=== PATIENT | male | born 1980 | race Two or more races ===

== ENCOUNTER 2016-10-26 08:50 | Inpatient (IN) | payer OTHER ==
[2016-10-26 09:29] VITALS: BMI 25.9
--- NOTE | 2016-10-26 09:46 | HP ---
CIWA Score - CIWA Score Nausea/Vomitin-Mild Nausea/No Vomiting Muscle Tremors: 4-Moderate,w/Arms Extend Anxiety: 4-Mod. Anxious/Guarded Agitation: 1-Slight > Activity Paroxysmal Sweats: 1-Minimal Palms Moist Orientation: 0-Oriented Tacttile Disturbances: 1-Very Mild Itch/Numbness Auditory Disturbances: 1-Very Mild Visual Disturbances: 1-Very Mild Sensitivity Headache: 1-Very Mild CIWA-Ar Total Score: 15 Admission ROS S - HPI Chief Complaint: I want help, I want to stop using Allergies/Adverse Reactions: Allergies Allergy/AdvReac Type Severity Reaction Status Date / Time Fish Containing Products Allergy Intermediate Swelling Verified 10/26/16 09:14 History of Present Illness: 36 yo gentleman here for detox from alcohol. Has been using heroin but is on suboxone - received suboxone on 10/24/16 per [facility] for fifteen days, prior to that had received suboxone in September, and September 13 day supply. Reports her relapsed with heroin and alcohol following his mother's but wants to go back on suboxone. Discussed with patient we can restart suboxone tomorrow. Denies seizures. Last detox here in 2014. Patient also HIV+. Exam Limitations: Clinical Condition - Ebola screening Have you traveled outside of the country in the last 21 days: No Have you had contact with anyone from an Ebola affected area: No Have you been sick,other than usual withdrawal symptoms: No Do you have a fever: No - Review of Systems Constitutional: Loss of Appetite, Malaise, Changes in sleep EENT: reports: Blurred Vision, Nose Congestion Respiratory: reports: No Symptoms reported Cardiac: reports: No Symptoms Reported GI: reports: Nausea, Poor Appetite, Indigestion : reports: Dysuria Musculoskeletal: reports: Back Pain, Muscle Pain Integumentary: reports: No Symptoms Reported Neuro: reports: Headache, Tremors Endocrine: reports: No Symptoms Reported Hematology: reports: No Symptoms Reported Psychiatric: reports: Judgement Intact, Mood/Affect Appropiate, Orientated x3, Anxious Other Systems: Reviewed and Negative Patient History - Patient Medical History Hx Anemia: No Hx Asthma: Yes Hx Chronic Obstructive Pulmonary Disease (COPD): No Hx Cancer: No Hx Cardiac Disorders: No Hx Congestive Heart Failure: No Hx Hypertension: No Hx Hypercholesterolemia: No Hx Pacemaker: No HX Cerebrovascular Accident: No Hx Seizures: No Hx Dementia: No Hx Diabetes: No Hx Gastrointestinal Disorders: No Hx Liver Disease: No Hx Genitourinary Disorders: No Hx Sexually Transmitted Disorders: No Hx Renal Disease (ESRD): No Hx Thyroid Disease: No Hx Human Immunodeficiency Virus (HIV): Yes (since 2006 , vl <20; cd4 = 755) Hx Hepatitis C: No Hx Depression: Yes (Bipolar) Hx Suicide Attempt: No Hx Bipolar Disorder: Yes (hospitalized a year ago Bx [place]) Hx Schizophrenia: No - Patient Surgical History Past Surgical History: No - PPD History Previous Implant?: Yes Documented Results: Negative w/o proof Implanted On Prior [facility] Admission?: Yes Date: 10/26/14 Results: 0 mm - Reproductive History Patient is a Female of Child Bearing Age (11 -55 yrs old): No - Smoking Cessation Smoking history: Current every day smoker Have you smoked in the past 12 months: Yes Aproximately how many cigarettes per day: 20 Cigars Per Day: 0 Hx Chewing Tobacco Use: No Initiated information on smoking cessation: Yes 'Breaking Loose' booklet given: 10/26/16 (give on floor) - Substance & Tx. History Hx Alcohol Use: Yes Hx Substance Use: Yes Substance Use Type: Alcohol, Cocaine, Opiates Hx Substance Use Treatment: Yes (detox, rehab, subozone) - Substances Abused Heroin Route: Injection Frequency: Daily Amount used: 15 bags Age of first use: 14 Date of Last Use: 10/26/16 Cocaine Route: Inhalation Frequency: Daily Amount used: $200-300 Age of first use: 17 Date of Last Use: 10/26/16 Alcohol Route: Oral Frequency: Daily Amount used: vodka 2 pints Age of first use: 35 Date of Last Use: 10/25/16 Family Disease History - Family Disease History Family Disease History: Other: Father (living,etoh), Mother (, overdose) , Brother (two - living - depression), Sister (three) Admission Physical Exam [facility] - Vital Signs Vital Signs: Vital Signs - 24 hr 10/26/16 09:27 Temperature 97 F L Pulse Rate 81 Respiratory 20 Rate Blood Pressure 127/78 - Physical General Appearance: Yes: Nourished, Appropriately Dressed, Moderate Distress, Tremorous, Anxious HEENTM: Yes: Hearing grossly Normal, Normocephalic, Normal Voice, Pharynx Normal , Nasal Congestion, Rhinorrhea Respiratory: Yes: Normal Breath Sounds, No Respiratory Distress Neck: Yes: No masses,lesions,Nodules, Supple Breast: Yes: Breast Exam Deferred Cardiology: Yes: Regular Rhythm, Regular Rate Abdominal: Yes: Soft Genitourinary: Yes: Within Normal Limits Back: Yes: Normal Inspection Musculoskeletal: Yes: full range of Motion, Gait Steady, Back pain, Muscle Pain Extremities: Yes: Normal Inspection, Non-Tender Neurological: Yes: Fully Oriented, Alert, Normal Mood/Affect, Normal Response Integumentary: Yes: Normal Color, Warm, Rash (c/o athlete's feet), Track Michaels ( antecubital space - no abscess noted) Lymphatic: Yes: Within Normal Limits Cleared for Admission [facility] - Detox or Rehab [facility] Level of Care: Medically Managed Detox Regimen/Protocol: Librium [facility] Breath Alcohol Content Breath Alcohol Content: 0 Urine Drug Screen - Results Drug Screen Negative: No Urine Drug Screen Results: CARLA-Cocaine, OPI-Opiates
[2016-10-26] MEDS ORDERED: chlordiazePOXIDE HCL 25 MG CAPSULE PO PRN (09:56)
[2016-10-26] MEDS ORDERED: MAGNESIUM HYDROX 2400MG/30ML ORAL SUSPENSION 30 ML CUP PO PRN (09:56)
[2016-10-26] MEDS ORDERED: P-EPHED 60MG/TRIPROLIDI 2.5MG TABLET PO PRN (09:56)
[2016-10-26] MEDS ORDERED: ALBUTEROL SO4 6.7 GM HFA INHALER IH PRN (09:57)
[2016-10-26] MEDS ORDERED: chlordiazePOXIDE HCL 25 MG CAPSULE PO ONE (10:45)
[2016-10-26] MEDS: EMTRICITAB/RILPIVIRINE/TENOFOV 1 EACH TABLET PO SCH (11:50)
[2016-10-26] MEDS: PRENATAL VITAMINS W/ FOLIC ACID TABLET (FP) PO SCH (11:50)
[2016-10-26] MEDS: BUDESONIDE/FORMETEROL FUMARATE 80/4.5 mcg INHALER IH SCH ×2 (11:51→22:38)
[2016-10-26] MEDS: TOLNAFTATE 1% CREAM 15 GM TUBE TP SCH ×2 (12:05→22:42)
[2016-10-26 12:58] LABS: MCH 30.1 pg (25.7-33.7); MCHC 33.5 g/dl (32.0-35.9); MEAN CELL VOLUME 89.8 fl (80-96); MEAN PLT VOLUME 9.9 fl (7.5-11.1); PLATELET COUNT 149 K/MM3 (134-434); RDW 13.6 % (11.9-15.9); WHITE BLOOD COUNT 4.5 K/mm3 (4.0-10.0)
[2016-10-26 13:01] LABS: URINE APPEARANCE CLEAR; URINE BILIRUBIN NEGATIVE (NEGATIVE); URINE BLOOD NEGATIVE (NEGATIVE); URINE COLOR YELLOW; URINE GLUCOSE (UA) NEGATIVE (NEGATIVE); URINE KETONE NEGATIVE (NEGATIVE); URINE LEUK ESTERASE NEGATIVE (NEGATIVE); URINE NITRITE NEGATIVE (NEGATIVE); URINE PROTEIN NEGATIVE (NEGATIVE); URINE UROBILINOGEN NEGATIVE mg/dL (0.2-1.0)
[2016-10-26] MEDS: chlordiazePOXIDE HCL 25 MG CAPSULE PO SCH ×2 (17:39→22:39)
[2016-10-26] MEDS: IBUPROFEN 400 MG TABLET (FP) PO PRN (20:39)
[2016-10-26] MEDS: THIAMINE HCL 100 MG TABLET (FP) PO SCH (22:39)
[2016-10-26] MEDS: diphenhydrAMINE HCL 50 MG CAPSULE PO PRN (22:41)
[2016-10-26] MEDS: NICOTINE POLACRILEX 4 MG GUM BC PRN (22:42)
[2016-10-27] MEDS: LOPERAMIDE HCL 2 MG CAPSULE PO PRN (05:18)
[2016-10-27] MEDS: chlordiazePOXIDE HCL 25 MG CAPSULE PO SCH ×4 (06:00→22:34)
[2016-10-27] MEDS: TRIMETHOBENZAMIDE HCL 200MG/2ML INJ IM PRN (07:09)
[2016-10-27] MEDS ORDERED: BUPRENORPHINE/NALOXONE 8 MG/2 MG FILM PACKET SL SCH (10:00)
[2016-10-27 10:32] LABS: ALBUMIN 3.9 g/dl (3.4-5.0); ANION GAP 10 (8-16); CALCIUM 8.6 mg/dL (8.5-10.1); CO2 26 mmol/L (21-32); GLUCOSE,RANDOM 92 mg/dL (74-106)
[2016-10-27 10:36] LABS: ALK PHOS 74 U/L (45-117); BILIRUBIN,TOTAL 0.9 mg/dL (0.2-1.0); CREATININE 0.8 mg/dL (0.7-1.3); SGOT/AST 18 U/L (15-37); SGPT/ALT 22 U/L (12-78); TOT PROT 7.6 g/dl (6.4-8.2)
[2016-10-27] MEDS: TOLNAFTATE 1% CREAM 15 GM TUBE TP SCH ×2 (10:58→23:44)
[2016-10-27] MEDS: PRENATAL VITAMINS W/ FOLIC ACID TABLET (FP) PO SCH (10:58)
[2016-10-27] MEDS: BUDESONIDE/FORMETEROL FUMARATE 80/4.5 mcg INHALER IH SCH ×2 (10:58→22:34)
[2016-10-27] MEDS: EMTRICITAB/RILPIVIRINE/TENOFOV 1 EACH TABLET PO SCH (10:58)
[2016-10-27] MEDS ORDERED: BUPRENORPHINE/NALOXONE 8 MG/2 MG FILM PACKET SL ONE (11:20)
--- NOTE | 2016-10-27 11:27 | PN ---
[facility] CIWA - CIWA Score Nausea/Vomitin Muscle Tremors: 4-Moderate,w/Arms Extend Anxiety: 4-Mod. Anxious/Guarded Agitation: 3 Paroxysmal Sweats: 3 Orientation: 0-Oriented Tacttile Disturbances: 0-None Auditory Disturbances: 0-None Visual Disturbances: 0-None Headache: 0-None Present CIWA-Ar Total Score: 16 S Progress Note (SOAP) Subjective: Anxiety,tremors,sweating,interrupted sleep,restless Objective: 10/27/16 11:24 Vital Signs - 8 hr 10/27/16 10/27/16 10/27/16 03:30 06:00 10:00 Temperature 97.7 F 98.1 F Pulse Rate 69 78 Respiratory 18 18 18 Rate Blood Pressure 129/65 125/70 Laboratory Last Values WBC 4.5 K/mm3 (4.0-10.0) 10/26/16 10:00 RBC 4.83 M/mm3 (4.00-5.60) 10/26/16 10:00 Hgb 14.5 GM/dL (11.7-16.9) 10/26/16 10:00 Hct 43.3 % (35.4-49) 10/26/16 10:00 MCV 89.8 fl (80-96) 10/26/16 10:00 MCH 30.1 pg (25.7-33.7) 10/26/16 10:00 MCHC 33.5 g/dl (32.0-35.9) 10/26/16 10:00 RDW 13.6 % (11.9-15.9) 10/26/16 10:00 Plt Count 149 K/MM3 (134-434) 10/26/16 10:00 MPV 9.9 fl (7.5-11.1) 10/26/16 10:00 Sodium 138 mmol/L (136-145) 10/27/16 08:00 Potassium 3.8 mmol/L (3.5-5.1) 10/27/16 08:00 Chloride 102 mmol/L (98-107) 10/27/16 08:00 Carbon Dioxide 26 mmol/L (21-32) 10/27/16 08:00 Anion Gap 10 (8-16) 10/27/16 08:00 BUN 9 mg/dL (7-18) 10/27/16 08:00 Creatinine 0.8 mg/dL (0.7-1.3) D 10/27/16 08:00 Creat Clearance w eGFR > 60 (>60) 10/27/16 08:00 Random Glucose 92 mg/dL (74-106) D 10/27/16 08:00 Calcium 8.6 mg/dL (8.5-10.1) 10/27/16 08:00 Total Bilirubin 0.9 mg/dL (0.2-1.0) D 10/27/16 08:00 AST 18 U/L (15-37) D 10/27/16 08:00 ALT 22 U/L (12-78) D 10/27/16 08:00 Alkaline Phosphatase 74 U/L (45-117) 10/27/16 08:00 Total Protein 7.6 g/dl (6.4-8.2) 10/27/16 08:00 Albumin 3.9 g/dl (3.4-5.0) D 10/27/16 08:00 Urine Color Yellow 10/26/16 10:08 Urine Appearance Clear 10/26/16 10:08 Urine pH 5.0 (5.0-8.0) 10/26/16 10:08 Ur Specific [place] 1.020 (1.005-1.025) 10/26/16 10:08 Urine Protein Negative (NEGATIVE) 10/26/16 10:08 Urine Glucose (UA) Negative (NEGATIVE) 10/26/16 10:08 Urine Ketones Negative (NEGATIVE) 10/26/16 10:08 Urine Blood Negative (NEGATIVE) 10/26/16 10:08 Urine Nitrite Negative (NEGATIVE) 10/26/16 10:08 Urine Bilirubin Negative (NEGATIVE) 10/26/16 10:08 Urine Urobilinogen Negative mg/dL (0.2-1.0) 10/26/16 10:08 Ur Leukocyte Esterase Negative (NEGATIVE) 10/26/16 10:08 labs noted Assessment: 10/27/16 11:24 Withdrawal sx. Plan: Continue detox
--- NOTE | 2016-10-27 13:57 | EKG ---
Test Reason : Blood Pressure : / mmHG Vent. Rate : 082 BPM Atrial Rate : 082 BPM P-R Int : 134 ms QRS Dur : 100 ms QT Int : 422 ms P-R-T Axes : 066 081 052 degrees QTc Int : 493 ms NORMAL SINUS RHYTHM MINIMAL VOLTAGE CRITERIA FOR LVH, MAY BE NORMAL VARIANT PROLONGED QT ABNORMAL ECG NO PREVIOUS ECGS AVAILABLE Confirmed by YESIKA HOGUE, CYNTHIA ([id number]) on 10/27/2016 1:56:52 PM Referred By: Confirmed By:CYNTHIA NAPOLES MD
[2016-10-27] MEDS: BUPRENORPHINE/NALOXONE 8 MG/2 MG FILM PACKET SL SCH ×2 (15:32→22:34)
[2016-10-27] MEDS: THIAMINE HCL 100 MG TABLET (FP) PO SCH (22:34)
[2016-10-27] MEDS: diphenhydrAMINE HCL 50 MG CAPSULE PO PRN (22:35)
[2016-10-27] MEDS: IBUPROFEN 400 MG TABLET (FP) PO PRN (23:52)
[2016-10-28] MEDS: diphenhydrAMINE HCL 50 MG CAPSULE PO PRN (01:23)
[2016-10-28] MEDS: chlordiazePOXIDE HCL 25 MG CAPSULE PO SCH ×2 (05:59→10:54)
[2016-10-28] MEDS: NICOTINE POLACRILEX 4 MG GUM BC PRN ×3 (06:01→19:02)
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
[2016-10-28] MEDS: ACETAMINOPHEN 325 MG TABLET (FP) PO PRN (09:41)
[2016-10-28] MEDS: BUPRENORPHINE/NALOXONE 8 MG/2 MG FILM PACKET SL SCH ×2 (09:42→17:44)
[2016-10-28] MEDS ORDERED: BUPRENORPHINE/NALOXONE 8 MG/2 MG FILM PACKET SL SCH (10:00)
[2016-10-28] MEDS: EMTRICITAB/RILPIVIRINE/TENOFOV 1 EACH TABLET PO SCH (10:54)
[2016-10-28] MEDS: BUDESONIDE/FORMETEROL FUMARATE 80/4.5 mcg INHALER IH SCH ×2 (10:54→23:41)
[2016-10-28] MEDS: PRENATAL VITAMINS W/ FOLIC ACID TABLET (FP) PO SCH (10:54)
[2016-10-28] MEDS: TOLNAFTATE 1% CREAM 15 GM TUBE TP SCH ×2 (10:55→23:41)
[2016-10-28] MEDS ORDERED: BUPRENORPHINE/NALOXONE 8 MG/2 MG FILM PACKET SL ONE (11:08)
--- NOTE | 2016-10-28 12:43 | PN ---
[facility] CIWA - CIWA Score Nausea/Vomitin Muscle Tremors: 3 Anxiety: 3 Agitation: 2 Paroxysmal Sweats: 1-Minimal Palms Moist Orientation: 0-Oriented Tacttile Disturbances: 1-Very Mild Itch/Numbness Auditory Disturbances: 1-Very Mild Visual Disturbances: 1-Very Mild Sensitivity Headache: 2-Mild CIWA-Ar Total Score: 17 S Progress Note (SOAP) Subjective: ALERT,IRRITABLE,ANXIOUS,INTERRUPTED SLEEP,PAIN IN BODY,INJURY TO NOSE Objective: 10/28/16 12:40 Vital Signs Temperature 97.9 F 10/28/16 10:11 Pulse Rate 79 10/28/16 10:11 Respiratory Rate 18 10/28/16 10:11 Blood Pressure 131/71 10/28/16 10:11 O2 Sat by Pulse Oximetry (%) EKG NSR,PROLONG QT 10/28/16 12:41 Laboratory Last Values WBC 4.5 K/mm3 (4.0-10.0) 10/26/16 10:00 RBC 4.83 M/mm3 (4.00-5.60) 10/26/16 10:00 Hgb 14.5 GM/dL (11.7-16.9) 10/26/16 10:00 Hct 43.3 % (35.4-49) 10/26/16 10:00 MCV 89.8 fl (80-96) 10/26/16 10:00 MCH 30.1 pg (25.7-33.7) 10/26/16 10:00 MCHC 33.5 g/dl (32.0-35.9) 10/26/16 10:00 RDW 13.6 % (11.9-15.9) 10/26/16 10:00 Plt Count 149 K/MM3 (134-434) 10/26/16 10:00 MPV 9.9 fl (7.5-11.1) 10/26/16 10:00 Sodium 138 mmol/L (136-145) 10/27/16 08:00 Potassium 3.8 mmol/L (3.5-5.1) 10/27/16 08:00 Chloride 102 mmol/L (98-107) 10/27/16 08:00 Carbon Dioxide 26 mmol/L (21-32) 10/27/16 08:00 Anion Gap 10 (8-16) 10/27/16 08:00 BUN 9 mg/dL (7-18) 10/27/16 08:00 Creatinine 0.8 mg/dL (0.7-1.3) D 10/27/16 08:00 Creat Clearance w eGFR > 60 (>60) 10/27/16 08:00 Random Glucose 92 mg/dL (74-106) D 10/27/16 08:00 Calcium 8.6 mg/dL (8.5-10.1) 10/27/16 08:00 Total Bilirubin 0.9 mg/dL (0.2-1.0) D 10/27/16 08:00 AST 18 U/L (15-37) D 10/27/16 08:00 ALT 22 U/L (12-78) D 10/27/16 08:00 Alkaline Phosphatase 74 U/L (45-117) 10/27/16 08:00 Total Protein 7.6 g/dl (6.4-8.2) 10/27/16 08:00 Albumin 3.9 g/dl (3.4-5.0) D 10/27/16 08:00 Urine Color Yellow 10/26/16 10:08 Urine Appearance Clear 10/26/16 10:08 Urine pH 5.0 (5.0-8.0) 10/26/16 10:08 Ur Specific [place] 1.020 (1.005-1.025) 10/26/16 10:08 Urine Protein Negative (NEGATIVE) 10/26/16 10:08 Urine Glucose (UA) Negative (NEGATIVE) 10/26/16 10:08 Urine Ketones Negative (NEGATIVE) 10/26/16 10:08 Urine Blood Negative (NEGATIVE) 10/26/16 10:08 Urine Nitrite Negative (NEGATIVE) 10/26/16 10:08 Urine Bilirubin Negative (NEGATIVE) 10/26/16 10:08 Urine Urobilinogen Negative mg/dL (0.2-1.0) 10/26/16 10:08 Ur Leukocyte Esterase Negative (NEGATIVE) 10/26/16 10:08 RPR Titer Nonreactive (NONREACTIVE) 10/27/16 08:00 Assessment: 10/28/16 12:42 WITHDRAWAL SYMPTOM Plan: CONTINUE DETOX,X RAY OF NASAL BONE
[2016-10-28] MEDS: LOPERAMIDE HCL 2 MG CAPSULE PO PRN (13:49)
[2016-10-28] MEDS: TRIMETHOBENZAMIDE HCL 200MG/2ML INJ IM PRN (15:46)
[2016-10-28] MEDS: chlordiazePOXIDE 5 MG CAPSULE PO SCH ×2 (17:45→22:47)
[2016-10-28] MEDS: MAG HYDROX/AL HYDROX/SIMETH 30 ML UNIT-DOSE CUP PO PRN (19:55)
[2016-10-28] MEDS: THIAMINE HCL 100 MG TABLET (FP) PO SCH (22:46)
[2016-10-28] MEDS: ZOLPIDEM TARTRATE 10 MG TABLET (PARK CARE ONLY) PO PRN (22:47)
[2016-10-29] MEDS: hydrOXYzine PAMOATE 50 MG CAPSULE (FP) PO PRN (02:12)
[2016-10-29] MEDS: chlordiazePOXIDE 5 MG CAPSULE PO SCH ×2 (05:25→10:54)
[2016-10-29] MEDS: NICOTINE POLACRILEX 4 MG GUM BC PRN ×2 (05:28→17:20)
--- NOTE | 2016-10-29 10:40 | PN ---
S Progress Note (SOAP) Subjective: ALERT,IRRITABLE,ANXIOUS,INTERRUPTED SLEEP Objective: 10/29/16 10:38 Vital Signs Temperature 97.9 F 10/29/16 10:00 Pulse Rate 77 10/29/16 10:00 Respiratory Rate 18 10/29/16 10:00 Blood Pressure 120/65 10/29/16 10:00 O2 Sat by Pulse Oximetry (%) 10/29/16 10:39 Assessment: 10/29/16 10:39 WITHDRAWAL SYMPTOM Plan: CONTINUE DETOX,NASAL BONE X RAY NO DEFINITE FRACTURE
[2016-10-29] MEDS: PRENATAL VITAMINS W/ FOLIC ACID TABLET (FP) PO SCH (10:54)
[2016-10-29] MEDS: BUPRENORPHINE/NALOXONE 8 MG/2 MG FILM PACKET SL SCH ×2 (10:55→17:19)
[2016-10-29] MEDS: BUDESONIDE/FORMETEROL FUMARATE 80/4.5 mcg INHALER IH SCH ×2 (10:55→22:22)
[2016-10-29] MEDS: EMTRICITAB/RILPIVIRINE/TENOFOV 1 EACH TABLET PO SCH (10:55)
[2016-10-29] MEDS: TOLNAFTATE 1% CREAM 15 GM TUBE TP SCH ×2 (10:56→22:23)
[2016-10-29] MEDS: chlordiazePOXIDE HCL 10 MG CAPSULE PO SCH ×2 (17:15→22:21)
[2016-10-29] MEDS: THIAMINE HCL 100 MG TABLET (FP) PO SCH (22:21)
[2016-10-29] MEDS: ZOLPIDEM TARTRATE 10 MG TABLET (PARK CARE ONLY) PO PRN (22:21)
[2016-10-30] MEDS: chlordiazePOXIDE HCL 10 MG CAPSULE PO SCH ×2 (05:32→10:46)
--- NOTE | 2016-10-30 10:41 | PN ---
S Progress Note (SOAP) Subjective: ALERT,IRRITABLE,ANXIOUS,INTERRUPTED SLEEP Objective: 10/30/16 10:39 Vital Signs Temperature 98.2 F 10/30/16 06:17 Pulse Rate 74 10/30/16 06:17 Respiratory Rate 18 10/30/16 06:17 Blood Pressure 101/50 10/30/16 06:17 O2 Sat by Pulse Oximetry (%) Assessment: 10/30/16 10:40 WITHDRAWAL SYMPTOM Plan: CONTINUE DETOX
[2016-10-30] MEDS: TOLNAFTATE 1% CREAM 15 GM TUBE TP SCH ×2 (10:46→22:54)
[2016-10-30] MEDS: BUDESONIDE/FORMETEROL FUMARATE 80/4.5 mcg INHALER IH SCH ×2 (10:46→22:27)
[2016-10-30] MEDS: BUPRENORPHINE/NALOXONE 8 MG/2 MG FILM PACKET SL SCH ×2 (10:46→17:25)
[2016-10-30] MEDS: EMTRICITAB/RILPIVIRINE/TENOFOV 1 EACH TABLET PO SCH (10:46)
[2016-10-30] MEDS: PRENATAL VITAMINS W/ FOLIC ACID TABLET (FP) PO SCH (10:46)
[2016-10-30] MEDS: NICOTINE POLACRILEX 4 MG GUM BC PRN ×3 (10:49→22:28)
[2016-10-30] MEDS: hydrOXYzine PAMOATE 50 MG CAPSULE (FP) PO PRN (14:13)
[2016-10-30] MEDS: IBUPROFEN 400 MG TABLET (FP) PO PRN (14:13)
[2016-10-30] MEDS: THIAMINE HCL 100 MG TABLET (FP) PO SCH (22:27)
[2016-10-30] MEDS: ZOLPIDEM TARTRATE 10 MG TABLET (PARK CARE ONLY) PO PRN (22:27)
[2016-10-31] MEDS: diphenhydrAMINE HCL 50 MG CAPSULE PO PRN (01:11)
[2016-10-31] MEDS: IBUPROFEN 400 MG TABLET (FP) PO PRN ×3 (01:12→16:30)
--- NOTE | 2016-10-31 08:44 | PN ---
S Progress Note (SOAP) Subjective: ALERT,NO COMPLAINT Objective: 10/31/16 08:42 Vital Signs Temperature 96.8 F L 10/31/16 06:18 Pulse Rate 73 10/31/16 06:18 Respiratory Rate 18 10/31/16 06:18 Blood Pressure 101/56 10/31/16 06:18 O2 Sat by Pulse Oximetry (%) Assessment: 10/31/16 08:42 DETOX COMPLETE,NO WITHDRAWAL SYMPTOM Plan: TRANSFER FROM DETOX TO [facility] FOR FURTHER LEVEL OF CARE
--- NOTE | 2016-10-31 08:53 | DS ---
[facility] Detox Discharge Summary Admission Date: 10/26/16 Discharge Date: 10/31/16 - History Present History: Alcohol Dependence, Opioid Dependence Additional Comments: TRANSFER TO REHAB FOR CONTINUE FURTHER LEVEL OF CARE Pertinent Past History: ASTHMA HIV NICOTINE DEPENDENCE SUBOXONE MAINTENANCE THERAPY - Physical Exam Results Vital Signs: Vital Signs Temperature 96.8 F L 10/31/16 06:18 Pulse Rate 73 10/31/16 06:18 Respiratory Rate 18 10/31/16 06:18 Blood Pressure 101/56 10/31/16 06:18 O2 Sat by Pulse Oximetry (%) Pertinent Admission Physical Exam Findings: [facility] Treatment Hospital Course: Detox Protocol Followed, Detoxed Safely, Responded well, Discharged Condition Good, Rehab Referral Accepted Patient has Accepted a Rehab Referral to: [facility] - Medication Discharge Medications: Ambulatory Orders Salmeterol/Fluticasone [Advair 250Mcg/50Mcg -] 1 inh PO BID 10/24/14 Albuterol Sulfate Inhaler - [Ventolin HFA Inhaler -] 2 inh PO Q4H PRN #1 canister 10/31/14 Emtricitab/Rilpivirine/Tenofov [Complera Tablet -] 1 each PO DAILY #30 Buprenorphine HCl/Naloxone HCl [Suboxone 8 mg-2 mg Sl Tablets] 8 mg SL TID 10/26 Zolpidem Tartrate [Ambien] 10 mg PO HS 10/26/16 Emtricitab/Rilpiviri/Tenof Ala [Odefsey Tablet] 1 each PO DAILY 10/31/16 - Diagnosis (1) Opioid dependence with withdrawal Current Visit: Yes Status: Acute (2) Alcohol dependence with uncomplicated withdrawal Current Visit: Yes Status: Acute (3) Asthma Current Visit: Yes Status: Chronic Qualifiers: Asthma severity: mild intermittent (4) Weight loss Current Visit: No Status: Acute (5) Major depressive disorder, recurrent episode, moderate Current Visit: No Status: Chronic (6) Posttraumatic stress disorder Current Visit: No Status: Chronic (7) Schizoaffective disorder Current Visit: No Status: Ruled-out (8) Nicotine dependence Current Visit: Yes Status: Chronic Qualifiers: Nicotine product type: cigarettes Substance use status: uncomplicated Qualified Code(s): F17.210 - Nicotine dependence, cigarettes, uncomplicated (9) HIV (human immunodeficiency virus infection) Current Visit: Yes Status: Acute - AMA Did Patient Leave Against Medical Advice: No
[2016-10-31] MEDS: TRIMETHOBENZAMIDE HCL 200MG/2ML INJ IM PRN (09:42)
[2016-10-31] MEDS: PRENATAL VITAMINS W/ FOLIC ACID TABLET (FP) PO SCH (11:13)
[2016-10-31] MEDS: EMTRICITAB/RILPIVIRINE/TENOFOV 1 EACH TABLET PO SCH (11:14)
[2016-10-31] MEDS: BUPRENORPHINE/NALOXONE 8 MG/2 MG FILM PACKET SL SCH ×2 (11:14→17:48)
[2016-10-31] MEDS: BUDESONIDE/FORMETEROL FUMARATE 80/4.5 mcg INHALER IH SCH ×2 (11:15→21:09)
[2016-10-31] MEDS: TOLNAFTATE 1% CREAM 15 GM TUBE TP SCH ×2 (11:15→21:09)
[2016-10-31] MEDS: NICOTINE POLACRILEX 4 MG GUM BC PRN ×3 (13:08→21:11)
--- NOTE | 2016-10-31 16:13 | HP ---
[facility] Assess/Revision - Admission History Admitted to Rehab from: [facility] Date of Admission to Rehab: 10/31/16 - Vital signs Vital Signs: Vital Signs Period Temp Pulse Resp BP Sys/Hall Pulse Ox Last 24 Hr 96.8 F-98.6 F 73-91 18-20 101-130/56-79 - Findings Detox History & Physical reviewed: Yes Concur with findings: Yes
[2016-10-31] MEDS: THIAMINE HCL 100 MG TABLET (FP) PO SCH (21:09)
[2016-10-31] MEDS: ZOLPIDEM TARTRATE 10 MG TABLET (PARK CARE ONLY) PO PRN (21:09)
[2016-11-01] MEDS: IBUPROFEN 400 MG TABLET (FP) PO PRN ×2 (03:32→14:14)
[2016-11-01] MEDS: NICOTINE POLACRILEX 4 MG GUM BC PRN ×4 (03:33→21:59)
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
[2016-11-01] MEDS: PRENATAL VITAMINS W/ FOLIC ACID TABLET (FP) PO SCH (10:30)
[2016-11-01] MEDS: BUDESONIDE/FORMETEROL FUMARATE 80/4.5 mcg INHALER IH SCH ×2 (10:31→21:57)
[2016-11-01] MEDS: TOLNAFTATE 1% CREAM 15 GM TUBE TP SCH ×2 (10:31→21:56)
[2016-11-01] MEDS: BUPRENORPHINE/NALOXONE 8 MG/2 MG FILM PACKET SL SCH ×2 (10:31→18:31)
[2016-11-01] MEDS: EMTRICITAB/RILPIVIRINE/TENOFOV 1 EACH TABLET PO SCH (11:51)
[2016-11-01] MEDS: THIAMINE HCL 100 MG TABLET (FP) PO SCH (21:55)
[2016-11-01] MEDS ORDERED: SUVOREXANT 10 MG TABLET PO PRN (22:00)
[2016-11-01] MEDS: hydrOXYzine PAMOATE 50 MG CAPSULE (FP) PO PRN (22:00)
[2016-11-01] MEDS: SUVOREXANT 10 MG TABLET PO PRN (22:22)
[2016-11-02] MEDS: IBUPROFEN 400 MG TABLET (FP) PO PRN ×2 (00:03→15:03)
[2016-11-02] MEDS: hydrOXYzine PAMOATE 50 MG CAPSULE (FP) PO PRN ×2 (02:27→21:36)
[2016-11-02] MEDS: BUDESONIDE/FORMETEROL FUMARATE 80/4.5 mcg INHALER IH SCH ×2 (10:34→21:34)
[2016-11-02] MEDS: PRENATAL VITAMINS W/ FOLIC ACID TABLET (FP) PO SCH (10:34)
[2016-11-02] MEDS: EMTRICITAB/RILPIVIRINE/TENOFOV 1 EACH TABLET PO SCH (10:35)
[2016-11-02] MEDS: BUPRENORPHINE/NALOXONE 8 MG/2 MG FILM PACKET SL SCH ×2 (10:35→17:04)
[2016-11-02] MEDS: TOLNAFTATE 1% CREAM 15 GM TUBE TP SCH ×2 (10:35→21:36)
[2016-11-02] MEDS: NICOTINE POLACRILEX 4 MG GUM BC PRN ×4 (10:36→21:37)
[2016-11-02] MEDS: THIAMINE HCL 100 MG TABLET (FP) PO SCH (21:34)
[2016-11-02] MEDS: SUVOREXANT 10 MG TABLET PO PRN (21:36)
[2016-11-02] MEDS: diphenhydrAMINE HCL 50 MG CAPSULE PO PRN (23:55)
[2016-11-03] MEDS: MENTHOL/PHENOL 1 EACH UD MM PRN (03:42)
[2016-11-03] MEDS: guaiFENesin/D-METHORPHAN HB 10 ML UNIT-DOSE CUPS PO PRN ×2 (03:42→10:40)
[2016-11-03] MEDS: TOLNAFTATE 1% CREAM 15 GM TUBE TP SCH ×2 (10:38→21:10)
[2016-11-03] MEDS: BUDESONIDE/FORMETEROL FUMARATE 80/4.5 mcg INHALER IH SCH ×2 (10:38→21:10)
[2016-11-03] MEDS: PRENATAL VITAMINS W/ FOLIC ACID TABLET (FP) PO SCH (10:38)
[2016-11-03] MEDS: EMTRICITAB/RILPIVIRINE/TENOFOV 1 EACH TABLET PO SCH (10:39)
[2016-11-03] MEDS: BUPRENORPHINE/NALOXONE 8 MG/2 MG FILM PACKET SL SCH ×2 (10:39→17:56)
[2016-11-03] MEDS: NICOTINE POLACRILEX 4 MG GUM BC PRN ×3 (10:46→21:13)
[2016-11-03] MEDS: MAG HYDROX/AL HYDROX/SIMETH 30 ML UNIT-DOSE CUP PO PRN (16:07)
[2016-11-03] MEDS: THIAMINE HCL 100 MG TABLET (FP) PO SCH (21:12)
[2016-11-03] MEDS: hydrOXYzine PAMOATE 50 MG CAPSULE (FP) PO PRN (21:12)
[2016-11-03] MEDS: SUVOREXANT 10 MG TABLET PO PRN (21:13)
[2016-11-04] MEDS: diphenhydrAMINE HCL 50 MG CAPSULE PO PRN (00:04)
[2016-11-04] MEDS: guaiFENesin/D-METHORPHAN HB 10 ML UNIT-DOSE CUPS PO PRN (06:03)
[2016-11-04] MEDS: NICOTINE POLACRILEX 4 MG GUM BC PRN ×5 (06:04→21:37)
[2016-11-04] MEDS: EMTRICITAB/RILPIVIRINE/TENOFOV 1 EACH TABLET PO SCH (10:50)
[2016-11-04] MEDS: PRENATAL VITAMINS W/ FOLIC ACID TABLET (FP) PO SCH (10:50)
[2016-11-04] MEDS: TOLNAFTATE 1% CREAM 15 GM TUBE TP SCH ×2 (10:51→21:37)
[2016-11-04] MEDS: BUDESONIDE/FORMETEROL FUMARATE 80/4.5 mcg INHALER IH SCH ×2 (10:51→21:37)
[2016-11-04] MEDS ORDERED: BUPRENORPHINE/NALOXONE 8 MG/2 MG FILM PACKET SL ONE (12:15)
--- NOTE | 2016-11-04 15:25 | PN ---
Psychiatric Progress Note Vital Signs: Vital Signs Period Temp Pulse Resp BP Sys/Hall Pulse Ox Last 24 Hr 97.5 F 68 16-16 113/66 Date of Session: 11/04/16 Chief Complaint:: progress update. HPI: Patient is addressing alcohol, cocaine, opioid dependence. ROS: Asthma and HIV+ medically managed. Current Medications: Active Medications Generic Name Dose Route Start Last Admin Trade Name Freq PRN Reason Stop Dose Admin Acetaminophen 650 mg 10/26/16 09:56 10/28/16 09:41 Tylenol - PO 650 mg Q4H PRN Administration FEVER OR PAIN Al Hydroxide/Mg Hydroxide 30 ml 10/26/16 09:56 11/03/16 16:07 Mylanta Oral Suspension - PO 30 ml Q6H PRN Administration DYSPEPSIA Albuterol Sulfate 2 puff 10/26/16 09:57 Ventolin Hfa Inhaler - IH Q4H PRN ASTHMA Budesonide/Formoterol Fumarate 2 puff 10/26/16 10:00 11/04/16 10:51 Symbicort 80/4.5mcg - IH 2 inhaler BID BOBY Administration Buprenorphine/Naloxone 1 each 10/28/16 18:00 11/03/16 17:56 Suboxone 8mg/2mg Sl Film - SL 11/04/16 17:59 1 each DAILY@1800 BOBY Administration Buprenorphine/Naloxone 2 each 11/05/16 10:00 Suboxone 8mg/2mg Sl Film - SL DAILY BOBY Buprenorphine/Naloxone 1 each 11/04/16 18:00 Suboxone 8mg/2mg Sl Film - SL DAILY@1800 BOBY Diphenhydramine HCl 50 mg 10/26/16 09:56 11/04/16 00:04 Benadryl - PO 50 mg HSMR1 PRN Administration INSOMNIA Emtricitabine/Rilpivirine/Tenofovir 1 each 10/26/16 10:00 11/04/16 10:50 Complera - PO 1 each DAILY BOBY Administration Eucalyptus/Menthol/Phenol/Sorbitol 1 each 10/26/16 09:56 11/03/16 03:42 Cepastat Lozenge - MM 1 each Q4H PRN Administration SORE THROAT Guaifenesin 10 ml 10/26/16 09:56 11/04/16 06:03 Robitussin Dm - PO 10 ml Q6H PRN Administration COUGH Hydroxyzine Pamoate 50 mg 10/26/16 09:56 11/03/16 21:12 Vistaril - PO 50 mg Q4H PRN Administration AGITATION Ibuprofen 400 mg 10/26/16 09:56 11/02/16 15:03 Motrin - PO 400 mg Q6H PRN Administration SEVERE PAIN Loperamide HCl 4 mg 10/26/16 09:56 10/28/16 13:49 Imodium - PO 4 mg Q6H PRN Administration DIARRHEA Magnesium Citrate 300 ml 10/26/16 09:56 Citroma - PO Q48H PRN CONSTIPATION Magnesium Hydroxide 30 ml 10/26/16 09:56 Milk Of Magnesia - PO DAILY PRN CONSTIPATION Nicotine Polacrilex 4 mg 10/26/16 09:56 11/04/16 10:54 Nicorette Gum - BC 4 mg Q2H PRN Administration NICOTINE REPLACEMENT RX Multivit/Folic Acid/Iron 1 tab 10/26/16 10:00 11/04/16 10:50 Vitamins (Sjr) - PO 1 tab DAILY BOBY Administration Pseudoephedrine/Triprolidine 1 combo 10/26/16 09:56 Actifed - PO TID PRN NASAL CONGESTION Thiamine HCl 100 mg 10/26/16 22:00 11/03/16 21:12 Vitamin B1 - PO 100 mg HS BOBY Administration Tolnaftate 1 applic 10/26/16 10:00 11/04/16 10:51 Tinactin 1% Cream - TP 1 applic BID BOBY Administration Trimethobenzamide HCl 200 mg 10/27/16 05:57 10/31/16 09:42 Tigan Injection - IM 200 mg Q8H PRN Administration NAUSEA AND/OR VOMITING Medication(s) Change(s): r/n Belsomra. Current Side Effect: No Lab tests ordered: No Lab tests reviewed: Yes Provider note:: Reviewed the Dr.Camille frank admission note appreciated, patient was seen. Patient reports history of schizoaffective disorder, ptsd, bipolar states he stopped medications about 2 years and he feels "fine", just needs a renewal of Belsomra, which is effective and no side effectsr reported. Will r/n and continue to monitor progress. Total face to face time:: 15 Mental Status Exam - Mental Status Exam Alert and Oriented to: Time, Place, Person Cognitive Function: Good Patient Appearance: Well Groomed Affect: Appropriate, Mood Congruent Patient Behavior: Appropriate, Cooperative Speech Pattern: Clear, Appropriate Voice Loudness: Normal Thought Process: Intact, Goal Oriented Thought Disorder: Not Present Hallucinations: Denies Suicidal Ideation: Denies Homicidal Ideation: Denies Insight/Judgement: Good Sleep: Poorly Appetite: Good Muscle strength/Tone: Normal Gait/Station: Normal Psychiatric Treatment Plan - Problem List (1) Cocaine dependence Current Visit: Yes (2) Alcohol dependence Current Visit: Yes Qualifiers: Substance use status: uncomplicated Qualified Code(s): F10.20 - Alcohol dependence, uncomplicated (3) Opioid dependence Current Visit: Yes Qualifiers: Substance use status: uncomplicated Qualified Code(s): F11.20 - Opioid dependence, uncomplicated (4) Insomnia Current Visit: Yes
[2016-11-04] MEDS: BUPRENORPHINE/NALOXONE 8 MG/2 MG FILM PACKET SL SCH (18:02)
[2016-11-04] MEDS: SUVOREXANT 10 MG TABLET PO SCH (21:36)
[2016-11-04] MEDS: THIAMINE HCL 100 MG TABLET (FP) PO SCH (21:37)
[2016-11-04] MEDS: hydrOXYzine PAMOATE 50 MG CAPSULE (FP) PO PRN (21:37)
[2016-11-05] MEDS: diphenhydrAMINE HCL 50 MG CAPSULE PO PRN ×2 (00:17→23:46)
[2016-11-05] MEDS: guaiFENesin/D-METHORPHAN HB 10 ML UNIT-DOSE CUPS PO PRN ×2 (07:45→18:13)
[2016-11-05] MEDS: ACETAMINOPHEN 325 MG TABLET (FP) PO PRN (08:24)
[2016-11-05] MEDS: MENTHOL/PHENOL 1 EACH UD MM PRN (08:25)
[2016-11-05] MEDS: BUDESONIDE/FORMETEROL FUMARATE 80/4.5 mcg INHALER IH SCH ×2 (11:01→21:51)
[2016-11-05] MEDS: EMTRICITAB/RILPIVIRINE/TENOFOV 1 EACH TABLET PO SCH (11:02)
[2016-11-05] MEDS: PRENATAL VITAMINS W/ FOLIC ACID TABLET (FP) PO SCH (11:02)
[2016-11-05] MEDS: TOLNAFTATE 1% CREAM 15 GM TUBE TP SCH ×2 (11:02→21:53)
[2016-11-05] MEDS: BUPRENORPHINE/NALOXONE 8 MG/2 MG FILM PACKET SL SCH ×2 (11:03→17:02)
[2016-11-05] MEDS: NICOTINE POLACRILEX 4 MG GUM BC PRN ×4 (11:09→21:53)
[2016-11-05] MEDS: SUVOREXANT 10 MG TABLET PO SCH (21:52)
[2016-11-05] MEDS: THIAMINE HCL 100 MG TABLET (FP) PO SCH (21:53)
[2016-11-05] MEDS: hydrOXYzine PAMOATE 50 MG CAPSULE (FP) PO PRN (21:53)
[2016-11-06] MEDS: BUDESONIDE/FORMETEROL FUMARATE 80/4.5 mcg INHALER IH SCH ×2 (10:45→22:08)
[2016-11-06] MEDS: PRENATAL VITAMINS W/ FOLIC ACID TABLET (FP) PO SCH (10:45)
[2016-11-06] MEDS: TOLNAFTATE 1% CREAM 15 GM TUBE TP SCH ×2 (10:46→22:08)
[2016-11-06] MEDS: EMTRICITAB/RILPIVIRINE/TENOFOV 1 EACH TABLET PO SCH (10:46)
[2016-11-06] MEDS: BUPRENORPHINE/NALOXONE 8 MG/2 MG FILM PACKET SL SCH ×2 (10:47→17:39)
[2016-11-06] MEDS: NICOTINE POLACRILEX 4 MG GUM BC PRN ×4 (10:47→22:10)
[2016-11-06] MEDS: THIAMINE HCL 100 MG TABLET (FP) PO SCH (22:08)
[2016-11-06] MEDS: SUVOREXANT 10 MG TABLET PO SCH (22:09)
[2016-11-06] MEDS: hydrOXYzine PAMOATE 50 MG CAPSULE (FP) PO PRN (22:10)
[2016-11-06] MEDS: diphenhydrAMINE HCL 50 MG CAPSULE PO PRN (23:35)
[2016-11-07] MEDS: EMTRICITAB/RILPIVIRINE/TENOFOV 1 EACH TABLET PO SCH (10:41)
[2016-11-07] MEDS: PRENATAL VITAMINS W/ FOLIC ACID TABLET (FP) PO SCH (10:42)
[2016-11-07] MEDS: BUPRENORPHINE/NALOXONE 8 MG/2 MG FILM PACKET SL SCH ×2 (10:42→17:00)
[2016-11-07] MEDS: BUDESONIDE/FORMETEROL FUMARATE 80/4.5 mcg INHALER IH SCH ×2 (10:42→21:46)
[2016-11-07] MEDS: TOLNAFTATE 1% CREAM 15 GM TUBE TP SCH ×2 (10:42→21:47)
[2016-11-07] MEDS: NICOTINE POLACRILEX 4 MG GUM BC PRN ×3 (10:43→17:01)
[2016-11-07] MEDS: THIAMINE HCL 100 MG TABLET (FP) PO SCH (21:47)
[2016-11-07] MEDS: hydrOXYzine PAMOATE 50 MG CAPSULE (FP) PO PRN (21:47)
[2016-11-07] MEDS: SUVOREXANT 10 MG TABLET PO SCH (22:11)
[2016-11-07] MEDS: diphenhydrAMINE HCL 50 MG CAPSULE PO PRN (23:50)
[2016-11-08] MEDS: NICOTINE POLACRILEX 4 MG GUM BC PRN ×5 (08:35→21:47)
[2016-11-08] MEDS: PRENATAL VITAMINS W/ FOLIC ACID TABLET (FP) PO SCH (10:51)
[2016-11-08] MEDS: BUPRENORPHINE/NALOXONE 8 MG/2 MG FILM PACKET SL SCH ×2 (10:51→17:05)
[2016-11-08] MEDS: BUDESONIDE/FORMETEROL FUMARATE 80/4.5 mcg INHALER IH SCH ×2 (10:51→21:46)
[2016-11-08] MEDS: TOLNAFTATE 1% CREAM 15 GM TUBE TP SCH ×2 (10:51→21:47)
[2016-11-08] MEDS: EMTRICITAB/RILPIVIRINE/TENOFOV 1 EACH TABLET PO SCH (10:52)
[2016-11-08] MEDS: VITAMINS A AND D TOPICAL OINTMENT 60 GM TUBE TP SCH (17:06)
[2016-11-08] MEDS: COLLOIDAL OATMEAL 1 BAR EACH TP PRN (17:07)
[2016-11-08] MEDS: SUVOREXANT 10 MG TABLET PO SCH (21:45)
[2016-11-08] MEDS: hydrOXYzine PAMOATE 50 MG CAPSULE (FP) PO PRN (21:46)
[2016-11-08] MEDS: THIAMINE HCL 100 MG TABLET (FP) PO SCH (21:46)
[2016-11-09] MEDS: diphenhydrAMINE HCL 50 MG CAPSULE PO PRN (00:21)
[2016-11-09] MEDS: VITAMINS A AND D TOPICAL OINTMENT 60 GM TUBE TP SCH ×4 (00:21→17:48)
[2016-11-09] MEDS: NICOTINE POLACRILEX 4 MG GUM BC PRN ×3 (06:37→17:41)
[2016-11-09] MEDS: guaiFENesin/D-METHORPHAN HB 10 ML UNIT-DOSE CUPS PO PRN (08:55)
[2016-11-09] MEDS: BUDESONIDE/FORMETEROL FUMARATE 80/4.5 mcg INHALER IH SCH ×2 (10:17→22:53)
[2016-11-09] MEDS: EMTRICITAB/RILPIVIRINE/TENOFOV 1 EACH TABLET PO SCH (10:18)
[2016-11-09] MEDS: PRENATAL VITAMINS W/ FOLIC ACID TABLET (FP) PO SCH (10:18)
[2016-11-09] MEDS: BUPRENORPHINE/NALOXONE 8 MG/2 MG FILM PACKET SL SCH ×2 (10:18→17:41)
[2016-11-09] MEDS: TOLNAFTATE 1% CREAM 15 GM TUBE TP SCH ×2 (10:19→22:53)
[2016-11-09] MEDS: MAG HYDROX/AL HYDROX/SIMETH 30 ML UNIT-DOSE CUP PO PRN (14:42)
[2016-11-09] MEDS: THIAMINE HCL 100 MG TABLET (FP) PO SCH (21:25)
[2016-11-09] MEDS: hydrOXYzine PAMOATE 50 MG CAPSULE (FP) PO PRN (21:27)
[2016-11-09] MEDS: SUVOREXANT 10 MG TABLET PO SCH (22:53)
[2016-11-10] MEDS: diphenhydrAMINE HCL 50 MG CAPSULE PO PRN ×2 (00:15→23:28)
[2016-11-10] MEDS: VITAMINS A AND D TOPICAL OINTMENT 60 GM TUBE TP SCH ×4 (00:16→17:31)
[2016-11-10] MEDS: NICOTINE POLACRILEX 4 MG GUM BC PRN ×6 (07:05→22:01)
[2016-11-10] MEDS: BUDESONIDE/FORMETEROL FUMARATE 80/4.5 mcg INHALER IH SCH ×2 (10:31→22:00)
[2016-11-10] MEDS: PRENATAL VITAMINS W/ FOLIC ACID TABLET (FP) PO SCH (10:31)
[2016-11-10] MEDS: EMTRICITAB/RILPIVIRINE/TENOFOV 1 EACH TABLET PO SCH (10:31)
[2016-11-10] MEDS: BUPRENORPHINE/NALOXONE 8 MG/2 MG FILM PACKET SL SCH ×2 (10:32→17:31)
[2016-11-10] MEDS: TOLNAFTATE 1% CREAM 15 GM TUBE TP SCH ×2 (10:32→22:00)
[2016-11-10] MEDS: MAG HYDROX/AL HYDROX/SIMETH 30 ML UNIT-DOSE CUP PO PRN (11:09)
[2016-11-10] MEDS: THIAMINE HCL 100 MG TABLET (FP) PO SCH (21:58)
[2016-11-10] MEDS: SUVOREXANT 10 MG TABLET PO SCH (21:58)
[2016-11-10] MEDS: hydrOXYzine PAMOATE 50 MG CAPSULE (FP) PO PRN (21:59)
[2016-11-11] MEDS: VITAMINS A AND D TOPICAL OINTMENT 60 GM TUBE TP SCH ×5 (00:42→23:45)
[2016-11-11] MEDS: NICOTINE POLACRILEX 4 MG GUM BC PRN ×3 (06:18→22:01)
[2016-11-11] MEDS: MAG HYDROX/AL HYDROX/SIMETH 30 ML UNIT-DOSE CUP PO PRN (07:51)
[2016-11-11] MEDS: TOLNAFTATE 1% CREAM 15 GM TUBE TP SCH ×2 (11:01→21:58)
[2016-11-11] MEDS: PRENATAL VITAMINS W/ FOLIC ACID TABLET (FP) PO SCH (11:01)
[2016-11-11] MEDS: BUDESONIDE/FORMETEROL FUMARATE 80/4.5 mcg INHALER IH SCH ×2 (11:01→21:58)
[2016-11-11] MEDS: BUPRENORPHINE/NALOXONE 8 MG/2 MG FILM PACKET SL SCH ×2 (11:01→17:02)
[2016-11-11] MEDS: EMTRICITAB/RILPIVIRINE/TENOFOV 1 EACH TABLET PO SCH (11:04)
[2016-11-11] MEDS ORDERED: MAGNESIUM CITRATE 300 ML BOTTLE PO PRN (11:46)
[2016-11-11] MEDS: COLLOIDAL OATMEAL 1 BAR EACH TP PRN (13:54)
[2016-11-11] MEDS: THIAMINE HCL 100 MG TABLET (FP) PO SCH (21:58)
[2016-11-11] MEDS: SUVOREXANT 10 MG TABLET PO SCH (21:59)
[2016-11-11] MEDS: hydrOXYzine PAMOATE 50 MG CAPSULE (FP) PO PRN (22:00)
[2016-11-11] MEDS: diphenhydrAMINE HCL 50 MG CAPSULE PO PRN (23:46)
[2016-11-11] MEDS: MAGNESIUM CITRATE 300 ML BOTTLE PO PRN (23:46)
[2016-11-12] MEDS: VITAMINS A AND D TOPICAL OINTMENT 60 GM TUBE TP SCH ×4 (06:07→23:48)
[2016-11-12] MEDS: NICOTINE POLACRILEX 4 MG GUM BC PRN ×6 (06:07→23:49)
[2016-11-12] MEDS: EMTRICITAB/RILPIVIRINE/TENOFOV 1 EACH TABLET PO SCH (10:57)
[2016-11-12] MEDS: PRENATAL VITAMINS W/ FOLIC ACID TABLET (FP) PO SCH (10:58)
[2016-11-12] MEDS: TOLNAFTATE 1% CREAM 15 GM TUBE TP SCH ×2 (10:58→21:45)
[2016-11-12] MEDS: BUDESONIDE/FORMETEROL FUMARATE 80/4.5 mcg INHALER IH SCH ×2 (10:58→21:45)
[2016-11-12] MEDS: BUPRENORPHINE/NALOXONE 8 MG/2 MG FILM PACKET SL SCH ×3 (11:08→17:42)
--- NOTE | 2016-11-12 14:53 | PN ---
Psychiatric Progress Note Vital Signs: Vital Signs Period Temp Pulse Resp BP Sys/Hall Pulse Ox Last 24 Hr 97.7 F 70 16-18 123/62 Date of Session: 11/12/16 Chief Complaint:: "anxious" HPI: Patient is addressing alcohol, cocaine, opioid dependence. ROS: Asthma and HIV+ medically managed. Current Medications: Active Medications Generic Name Dose Route Start Last Admin Trade Name Freq PRN Reason Stop Dose Admin Acetaminophen 650 mg 10/26/16 09:56 11/05/16 08:24 Tylenol - PO 650 mg Q4H PRN Administration FEVER OR PAIN Al Hydroxide/Mg Hydroxide 30 ml 10/26/16 09:56 11/11/16 07:51 Mylanta Oral Suspension - PO 30 ml Q6H PRN Administration DYSPEPSIA Albuterol Sulfate 2 puff 10/26/16 09:57 Ventolin Hfa Inhaler - IH Q4H PRN ASTHMA Budesonide/Formoterol Fumarate 2 puff 10/26/16 10:00 11/12/16 10:58 Symbicort 80/4.5mcg - IH 2 inhaler BID BOBY Administration Buprenorphine/Naloxone 2 each 11/12/16 11:30 11/12/16 11:28 Suboxone 8mg/2mg Sl Film - SL 2 each DAILY BOBY Administration Buprenorphine/Naloxone 1 each 11/12/16 20:00 Suboxone 8mg/2mg Sl Film - SL DAILY@2000 BOBY Colloidal Oatmeal 1 applic 11/08/16 13:17 11/11/16 13:54 Aveeno Soap - TP 1 applic DAILY PRN Administration HYGEINE Diphenhydramine HCl 50 mg 10/26/16 09:56 11/11/16 23:46 Benadryl - PO 50 mg HSMR1 PRN Administration INSOMNIA Emtricitabine/Rilpivirine/Tenofovir 1 each 10/26/16 10:00 11/12/16 10:57 Complera - PO 1 each DAILY BOBY Administration Eucalyptus/Menthol/Phenol/Sorbitol 1 each 10/26/16 09:56 11/05/16 08:25 Cepastat Lozenge - MM 1 each Q4H PRN Administration SORE THROAT Guaifenesin 10 ml 10/26/16 09:56 11/09/16 08:55 Robitussin Dm - PO 10 ml Q6H PRN Administration COUGH Hydroxyzine Pamoate 50 mg 10/26/16 09:56 11/11/16 22:00 Vistaril - PO 50 mg Q4H PRN Administration AGITATION Ibuprofen 400 mg 10/26/16 09:56 11/02/16 15:03 Motrin - PO 400 mg Q6H PRN Administration SEVERE PAIN Loperamide HCl 4 mg 10/26/16 09:56 10/28/16 13:49 Imodium - PO 4 mg Q6H PRN Administration DIARRHEA Magnesium Citrate 300 ml 10/26/16 09:56 11/11/16 23:46 Citroma - PO 300 ml Q48H PRN Administration CONSTIPATION Magnesium Citrate 300 ml 11/11/16 11:46 Citroma - PO 11/13/16 11:47 Q48H PRN CONSTIPATION Magnesium Hydroxide 30 ml 10/26/16 09:56 Milk Of Magnesia - PO DAILY PRN CONSTIPATION Nicotine Polacrilex 4 mg 10/26/16 09:56 11/12/16 14:09 Nicorette Gum - BC 4 mg Q2H PRN Administration NICOTINE REPLACEMENT RX Multivit/Folic Acid/Iron 1 tab 10/26/16 10:00 11/12/16 10:58 Vitamins (Sjr) - PO 1 tab DAILY BOBY Administration Pseudoephedrine/Triprolidine 1 combo 10/26/16 09:56 Actifed - PO TID PRN NASAL CONGESTION Thiamine HCl 100 mg 10/26/16 22:00 11/11/16 21:58 Vitamin B1 - PO 100 mg HS BOBY Administration Tolnaftate 1 applic 10/26/16 10:00 11/12/16 10:58 Tinactin 1% Cream - TP Not Given BID BOBY Trimethobenzamide HCl 200 mg 10/27/16 05:57 10/31/16 09:42 Tigan Injection - IM 200 mg Q8H PRN Administration NAUSEA AND/OR VOMITING Vitamin A/Vitamin D 1 applic 11/08/16 18:00 11/12/16 13:02 Vitamin A & D Top Oint - TP Not Given Q6HPO BOBY Current Side Effect: No Lab tests ordered: No Lab tests reviewed: Yes Provider note:: Patient reports feeling anxious and unable to sleep, states his sleep is interrupted and fragmented, states he waaakes uo with anxiety and it takes time to get back to sleep. Patient was recommended to take Vistaril 50 po q 4 hrs PRN . Will add Belsomra for insomnia. Monitor rpogress as needed. Total face to face time:: 15 Mental Status Exam - Mental Status Exam Alert and Oriented to: Time, Place, Person Cognitive Function: Good Patient Appearance: Well Groomed Mood: Anxious Affect: Appropriate, Mood Congruent Patient Behavior: Appropriate, Cooperative Speech Pattern: Clear, Appropriate Voice Loudness: Normal Thought Process: Intact, Goal Oriented Thought Disorder: Not Present Hallucinations: Denies Suicidal Ideation: Denies Homicidal Ideation: Denies Insight/Judgement: Fair Sleep: Poorly, Difficulty falling asleep Appetite: Good Muscle strength/Tone: Normal Gait/Station: Normal Psychiatric Treatment Plan - Problem List (1) Cocaine dependence Current Visit: Yes (2) Alcohol dependence Current Visit: Yes Qualifiers: Substance use status: uncomplicated Qualified Code(s): F10.20 - Alcohol dependence, uncomplicated (3) Opioid dependence Current Visit: Yes Qualifiers: Substance use status: uncomplicated Qualified Code(s): F11.20 - Opioid dependence, uncomplicated (4) Insomnia Current Visit: Yes
[2016-11-12] MEDS ORDERED: BUPRENORPHINE/NALOXONE 8 MG/2 MG FILM PACKET SL SCH (20:00)
[2016-11-12] MEDS: THIAMINE HCL 100 MG TABLET (FP) PO SCH (21:45)
[2016-11-12] MEDS: hydrOXYzine PAMOATE 50 MG CAPSULE (FP) PO PRN (21:46)
[2016-11-12] MEDS: SUVOREXANT 10 MG TABLET PO SCH (21:46)
[2016-11-12] MEDS: diphenhydrAMINE HCL 50 MG CAPSULE PO PRN (23:46)
[2016-11-13] MEDS: NICOTINE POLACRILEX 4 MG GUM BC PRN ×4 (06:32→21:59)
[2016-11-13] MEDS: VITAMINS A AND D TOPICAL OINTMENT 60 GM TUBE TP SCH ×3 (06:36→17:43)
[2016-11-13] MEDS: EMTRICITAB/RILPIVIRINE/TENOFOV 1 EACH TABLET PO SCH (10:24)
[2016-11-13] MEDS: BUPRENORPHINE/NALOXONE 8 MG/2 MG FILM PACKET SL SCH ×2 (10:25→17:42)
[2016-11-13] MEDS: PRENATAL VITAMINS W/ FOLIC ACID TABLET (FP) PO SCH (10:25)
[2016-11-13] MEDS: BUDESONIDE/FORMETEROL FUMARATE 80/4.5 mcg INHALER IH SCH ×2 (10:25→21:57)
[2016-11-13] MEDS: TOLNAFTATE 1% CREAM 15 GM TUBE TP SCH ×2 (10:25→21:57)
[2016-11-13] MEDS ORDERED: BUPRENORPHINE/NALOXONE 8 MG/2 MG FILM PACKET SL SCH (16:00)
[2016-11-13] MEDS: COLLOIDAL OATMEAL 1 BAR EACH TP PRN (17:43)
[2016-11-13] MEDS: THIAMINE HCL 100 MG TABLET (FP) PO SCH (21:57)
[2016-11-13] MEDS: hydrOXYzine PAMOATE 50 MG CAPSULE (FP) PO PRN (21:58)
[2016-11-13] MEDS: SUVOREXANT 10 MG TABLET PO SCH (21:58)
[2016-11-14] MEDS: VITAMINS A AND D TOPICAL OINTMENT 60 GM TUBE TP SCH ×4 (00:28→17:40)
[2016-11-14] MEDS: NICOTINE POLACRILEX 4 MG GUM BC PRN ×2 (08:21→10:51)
[2016-11-14] MEDS: EMTRICITAB/RILPIVIRINE/TENOFOV 1 EACH TABLET PO SCH (10:44)
[2016-11-14] MEDS: PRENATAL VITAMINS W/ FOLIC ACID TABLET (FP) PO SCH (10:44)
[2016-11-14] MEDS: TOLNAFTATE 1% CREAM 15 GM TUBE TP SCH ×2 (10:44→22:18)
[2016-11-14] MEDS: BUDESONIDE/FORMETEROL FUMARATE 80/4.5 mcg INHALER IH SCH ×2 (10:44→22:18)
[2016-11-14] MEDS: BUPRENORPHINE/NALOXONE 8 MG/2 MG FILM PACKET SL SCH ×2 (10:46→17:39)
[2016-11-14] MEDS ORDERED: PT OWN MED DRAWER 7, Y5N ONE (20:55)
[2016-11-14] MEDS: diphenhydrAMINE HCL 50 MG CAPSULE PO PRN (22:16)
[2016-11-14] MEDS: THIAMINE HCL 100 MG TABLET (FP) PO SCH (22:16)
[2016-11-14] MEDS: SUVOREXANT 10 MG TABLET PO SCH (22:17)
[2016-11-14] MEDS: hydrOXYzine PAMOATE 50 MG CAPSULE (FP) PO PRN (23:36)
[2016-11-15] MEDS: VITAMINS A AND D TOPICAL OINTMENT 60 GM TUBE TP SCH ×5 (00:41→23:44)
[2016-11-15] MEDS: NICOTINE POLACRILEX 4 MG GUM BC PRN ×5 (06:13→23:45)
[2016-11-15] MEDS: BUDESONIDE/FORMETEROL FUMARATE 80/4.5 mcg INHALER IH SCH ×2 (10:57→21:48)
[2016-11-15] MEDS: PRENATAL VITAMINS W/ FOLIC ACID TABLET (FP) PO SCH (10:58)
[2016-11-15] MEDS: BUPRENORPHINE/NALOXONE 8 MG/2 MG FILM PACKET SL SCH ×2 (10:58→17:34)
[2016-11-15] MEDS: EMTRICITAB/RILPIVIRINE/TENOFOV 1 EACH TABLET PO SCH (10:58)
[2016-11-15] MEDS: TOLNAFTATE 1% CREAM 15 GM TUBE TP SCH ×2 (10:58→21:49)
--- NOTE | 2016-11-15 14:39 | PN ---
Psychiatric Progress Note Vital Signs: Vital Signs Period Temp Pulse Resp BP Sys/Hall Pulse Ox Last 24 Hr 18 Date of Session: 11/15/16 Chief Complaint:: insomnia HPI: Patient is addressing alcohol, cocaine, opioid dependence. ROS: Asthma and HIV+ medically managed Current Medications: Active Medications Generic Name Dose Route Start Last Admin Trade Name Freq PRN Reason Stop Dose Admin Acetaminophen 650 mg 10/26/16 09:56 11/05/16 08:24 Tylenol - PO 650 mg Q4H PRN Administration FEVER OR PAIN Al Hydroxide/Mg Hydroxide 30 ml 10/26/16 09:56 11/11/16 07:51 Mylanta Oral Suspension - PO 30 ml Q6H PRN Administration DYSPEPSIA Albuterol Sulfate 2 puff 10/26/16 09:57 Ventolin Hfa Inhaler - IH Q4H PRN ASTHMA Budesonide/Formoterol Fumarate 2 puff 10/26/16 10:00 11/15/16 10:57 Symbicort 80/4.5mcg - IH 2 inhaler BID BOBY Administration Buprenorphine/Naloxone 2 each 11/12/16 11:30 11/15/16 10:58 Suboxone 8mg/2mg Sl Film - SL 2 each DAILY BOBY Administration Buprenorphine/Naloxone 1 each 11/12/16 18:00 11/14/16 17:39 Suboxone 8mg/2mg Sl Film - SL 1 each DAILY@18 BOBY Administration Colloidal Oatmeal 1 applic 11/08/16 13:17 11/13/16 17:43 Aveeno Soap - TP 1 applic DAILY PRN Administration HYGEINE Diphenhydramine HCl 50 mg 10/26/16 09:56 11/14/16 22:16 Benadryl - PO 50 mg HSMR1 PRN Administration INSOMNIA Emtricitabine/Rilpivirine/Tenofovir 1 each 10/26/16 10:00 11/15/16 10:58 Complera - PO 1 each DAILY BOBY Administration Eucalyptus/Menthol/Phenol/Sorbitol 1 each 10/26/16 09:56 11/05/16 08:25 Cepastat Lozenge - MM 1 each Q4H PRN Administration SORE THROAT Guaifenesin 10 ml 10/26/16 09:56 11/09/16 08:55 Robitussin Dm - PO 10 ml Q6H PRN Administration COUGH Hydroxyzine Pamoate 50 mg 10/26/16 09:56 11/14/16 23:36 Vistaril - PO 50 mg Q4H PRN Administration AGITATION Ibuprofen 400 mg 10/26/16 09:56 11/02/16 15:03 Motrin - PO 400 mg Q6H PRN Administration SEVERE PAIN Loperamide HCl 4 mg 10/26/16 09:56 10/28/16 13:49 Imodium - PO 4 mg Q6H PRN Administration DIARRHEA Magnesium Citrate 300 ml 10/26/16 09:56 11/11/16 23:46 Citroma - PO 300 ml Q48H PRN Administration CONSTIPATION Magnesium Hydroxide 30 ml 10/26/16 09:56 Milk Of Magnesia - PO DAILY PRN CONSTIPATION Nicotine Polacrilex 4 mg 10/26/16 09:56 11/15/16 10:59 Nicorette Gum - BC 4 mg Q2H PRN Administration NICOTINE REPLACEMENT RX Multivit/Folic Acid/Iron 1 tab 10/26/16 10:00 11/15/16 10:58 Vitamins (Sjr) - PO 1 tab DAILY BOBY Administration Pseudoephedrine/Triprolidine 1 combo 10/26/16 09:56 Actifed - PO TID PRN NASAL CONGESTION Thiamine HCl 100 mg 10/26/16 22:00 11/14/16 22:16 Vitamin B1 - PO 100 mg HS BOBY Administration Tolnaftate 1 applic 10/26/16 10:00 11/15/16 10:58 Tinactin 1% Cream - TP Not Given BID BOBY Trimethobenzamide HCl 200 mg 10/27/16 05:57 10/31/16 09:42 Tigan Injection - IM 200 mg Q8H PRN Administration NAUSEA AND/OR VOMITING Vitamin A/Vitamin D 1 applic 11/08/16 18:00 11/15/16 13:12 Vitamin A & D Top Oint - TP Not Given Q6HPO [facility] Medication(s) Change(s): add Seroquel 50 mg po hs Current Side Effect: No Lab tests ordered: No Lab tests reviewed: Yes Provider note:: Patient reports he still unable to sleep with Belsomra, he has racing thoughts at nights and gets anxious when can't sleep, reports in the past treated with seroquel, will add 50 mg po hs. Total face to face time:: 15 Mental Status Exam - Mental Status Exam Alert and Oriented to: Time, Place, Person Cognitive Function: Good Patient Appearance: Well Groomed Mood: Anxious Affect: Appropriate, Mood Congruent Patient Behavior: Appropriate, Cooperative Speech Pattern: Clear, Appropriate Voice Loudness: Normal Thought Process: Intact, Goal Oriented Thought Disorder: Not Present Hallucinations: Denies Suicidal Ideation: Denies Homicidal Ideation: Denies Insight/Judgement: Fair Sleep: Poorly, Difficulty falling asleep Appetite: Fair Muscle strength/Tone: Normal Gait/Station: Normal Psychiatric Treatment Plan - Problem List (1) Cocaine dependence Current Visit: Yes (2) Alcohol dependence Current Visit: Yes Qualifiers: Substance use status: uncomplicated Qualified Code(s): F10.20 - Alcohol dependence, uncomplicated (3) Opioid dependence Current Visit: Yes Qualifiers: Substance use status: uncomplicated Qualified Code(s): F11.20 - Opioid dependence, uncomplicated (4) Insomnia Current Visit: Yes
[2016-11-15] MEDS: SUVOREXANT 10 MG TABLET PO SCH (21:48)
[2016-11-15] MEDS: hydrOXYzine PAMOATE 50 MG CAPSULE (FP) PO PRN (21:48)
[2016-11-15] MEDS: QUEtiapine FUMARATE 50 MG TABLET PO SCH (21:48)
[2016-11-15] MEDS: THIAMINE HCL 100 MG TABLET (FP) PO SCH (21:49)
[2016-11-15] MEDS: diphenhydrAMINE HCL 50 MG CAPSULE PO PRN (23:44)
[2016-11-15] MEDS: MAG HYDROX/AL HYDROX/SIMETH 30 ML UNIT-DOSE CUP PO PRN (23:44)
[2016-11-16] MEDS: VITAMINS A AND D TOPICAL OINTMENT 60 GM TUBE TP SCH ×3 (07:00→18:01)
[2016-11-16] MEDS: EMTRICITAB/RILPIVIRINE/TENOFOV 1 EACH TABLET PO SCH (10:40)
[2016-11-16] MEDS: PRENATAL VITAMINS W/ FOLIC ACID TABLET (FP) PO SCH (10:40)
[2016-11-16] MEDS: BUDESONIDE/FORMETEROL FUMARATE 80/4.5 mcg INHALER IH SCH ×2 (10:40→21:47)
[2016-11-16] MEDS: TOLNAFTATE 1% CREAM 15 GM TUBE TP SCH ×2 (10:41→21:48)
[2016-11-16] MEDS: BUPRENORPHINE/NALOXONE 8 MG/2 MG FILM PACKET SL SCH ×2 (10:41→18:02)
[2016-11-16] MEDS: NICOTINE POLACRILEX 4 MG GUM BC PRN ×2 (10:42→18:04)
[2016-11-16] MEDS: hydrOXYzine PAMOATE 50 MG CAPSULE (FP) PO PRN (21:47)
[2016-11-16] MEDS: THIAMINE HCL 100 MG TABLET (FP) PO SCH (21:47)
[2016-11-16] MEDS: SUVOREXANT 10 MG TABLET PO SCH (21:47)
[2016-11-16] MEDS: QUEtiapine FUMARATE 50 MG TABLET PO SCH (21:47)
[2016-11-17] MEDS: VITAMINS A AND D TOPICAL OINTMENT 60 GM TUBE TP SCH ×4 (00:59→17:26)
[2016-11-17] MEDS: EMTRICITAB/RILPIVIRINE/TENOFOV 1 EACH TABLET PO SCH (10:38)
[2016-11-17] MEDS: PRENATAL VITAMINS W/ FOLIC ACID TABLET (FP) PO SCH (10:38)
[2016-11-17] MEDS: BUDESONIDE/FORMETEROL FUMARATE 80/4.5 mcg INHALER IH SCH ×2 (10:38→21:42)
[2016-11-17] MEDS: ACETAMINOPHEN 325 MG TABLET (FP) PO PRN (10:39)
[2016-11-17] MEDS: BUPRENORPHINE/NALOXONE 8 MG/2 MG FILM PACKET SL SCH ×2 (10:40→17:26)
[2016-11-17] MEDS: NICOTINE POLACRILEX 4 MG GUM BC PRN ×4 (10:40→21:43)
[2016-11-17] MEDS: TOLNAFTATE 1% CREAM 15 GM TUBE TP SCH ×2 (11:01→21:42)
[2016-11-17] MEDS: QUEtiapine FUMARATE 50 MG TABLET PO SCH (21:42)
[2016-11-17] MEDS: THIAMINE HCL 100 MG TABLET (FP) PO SCH (21:42)
[2016-11-17] MEDS: hydrOXYzine PAMOATE 50 MG CAPSULE (FP) PO PRN (21:42)
[2016-11-17] MEDS: SUVOREXANT 10 MG TABLET PO SCH (21:42)
[2016-11-17] MEDS ORDERED: INSULIN (NOVOLOG) ASPART 100 UNITS/ML 10ML VIAL ONE (23:18)
[2016-11-18] MEDS: VITAMINS A AND D TOPICAL OINTMENT 60 GM TUBE TP SCH ×5 (00:50→23:45)
[2016-11-18] MEDS: NICOTINE POLACRILEX 4 MG GUM BC PRN ×5 (06:18→22:13)
[2016-11-18] MEDS: PRENATAL VITAMINS W/ FOLIC ACID TABLET (FP) PO SCH (10:33)
[2016-11-18] MEDS: BUDESONIDE/FORMETEROL FUMARATE 80/4.5 mcg INHALER IH SCH ×2 (10:33→22:11)
[2016-11-18] MEDS: EMTRICITAB/RILPIVIRINE/TENOFOV 1 EACH TABLET PO SCH (10:33)
[2016-11-18] MEDS: TOLNAFTATE 1% CREAM 15 GM TUBE TP SCH ×2 (10:34→22:11)
[2016-11-18] MEDS: BUPRENORPHINE/NALOXONE 8 MG/2 MG FILM PACKET SL SCH ×2 (10:34→17:29)
[2016-11-18] MEDS: THIAMINE HCL 100 MG TABLET (FP) PO SCH (22:10)
[2016-11-18] MEDS: QUEtiapine FUMARATE 50 MG TABLET PO SCH (22:11)
[2016-11-18] MEDS: SUVOREXANT 10 MG TABLET PO SCH (22:11)
[2016-11-18] MEDS: hydrOXYzine PAMOATE 50 MG CAPSULE (FP) PO PRN (22:12)
[2016-11-18] MEDS: diphenhydrAMINE HCL 50 MG CAPSULE PO PRN (23:35)
[2016-11-19] MEDS: MAG HYDROX/AL HYDROX/SIMETH 30 ML UNIT-DOSE CUP PO PRN (06:14)
[2016-11-19] MEDS: NICOTINE POLACRILEX 4 MG GUM BC PRN ×5 (06:14→22:01)
[2016-11-19] MEDS: VITAMINS A AND D TOPICAL OINTMENT 60 GM TUBE TP SCH ×3 (06:14→17:40)
[2016-11-19] MEDS ORDERED: ONDANSETRON *ODT* 4 MG TABLET SL PRN ×2 (10:14→13:54)
[2016-11-19] MEDS: PRENATAL VITAMINS W/ FOLIC ACID TABLET (FP) PO SCH (10:42)
[2016-11-19] MEDS: BUPRENORPHINE/NALOXONE 8 MG/2 MG FILM PACKET SL SCH ×2 (10:42→17:40)
[2016-11-19] MEDS: BUDESONIDE/FORMETEROL FUMARATE 80/4.5 mcg INHALER IH SCH ×2 (10:42→21:59)
[2016-11-19] MEDS: EMTRICITAB/RILPIVIRINE/TENOFOV 1 EACH TABLET PO SCH (10:42)
[2016-11-19] MEDS: TOLNAFTATE 1% CREAM 15 GM TUBE TP SCH ×2 (10:43→21:59)
[2016-11-19] MEDS: CYCLOBENZAPRINE HCL 10 MG TABLET (FP) PO SCH ×2 (15:31→21:58)
[2016-11-19] MEDS: PANTOPRAZOLE 40 MG TABLET (FP) PO SCH (15:31)
[2016-11-19] MEDS: NAPROXEN 500 MG TABLET (FP) PO SCH (21:58)
[2016-11-19] MEDS: SUVOREXANT 10 MG TABLET PO SCH (21:58)
[2016-11-19] MEDS: cloNIDine HCL 0.1 MG TABLET PO SCH (21:58)
[2016-11-19] MEDS: QUEtiapine FUMARATE 50 MG TABLET PO SCH (21:58)
[2016-11-19] MEDS: THIAMINE HCL 100 MG TABLET (FP) PO SCH (21:59)
[2016-11-19] MEDS: hydrOXYzine PAMOATE 50 MG CAPSULE (FP) PO PRN (22:00)
[2016-11-20] MEDS: VITAMINS A AND D TOPICAL OINTMENT 60 GM TUBE TP SCH ×4 (00:42→17:38)
[2016-11-20] MEDS: CYCLOBENZAPRINE HCL 10 MG TABLET (FP) PO SCH ×3 (06:33→22:02)
[2016-11-20] MEDS: BUDESONIDE/FORMETEROL FUMARATE 80/4.5 mcg INHALER IH SCH ×2 (10:38→22:04)
[2016-11-20] MEDS: NAPROXEN 500 MG TABLET (FP) PO SCH ×2 (10:38→22:04)
[2016-11-20] MEDS: PANTOPRAZOLE 40 MG TABLET (FP) PO SCH (10:38)
[2016-11-20] MEDS: EMTRICITAB/RILPIVIRINE/TENOFOV 1 EACH TABLET PO SCH (10:38)
[2016-11-20] MEDS: PRENATAL VITAMINS W/ FOLIC ACID TABLET (FP) PO SCH (10:38)
[2016-11-20] MEDS: BUPRENORPHINE/NALOXONE 8 MG/2 MG FILM PACKET SL SCH ×2 (10:39→17:38)
[2016-11-20] MEDS: TOLNAFTATE 1% CREAM 15 GM TUBE TP SCH ×2 (10:41→22:04)
[2016-11-20] MEDS: cloNIDine HCL 0.1 MG TABLET PO SCH ×2 (10:42→22:04)
[2016-11-20] MEDS: NICOTINE POLACRILEX 4 MG GUM BC PRN ×3 (10:56→22:06)
[2016-11-20] MEDS: SUVOREXANT 10 MG TABLET PO SCH (22:03)
[2016-11-20] MEDS: QUEtiapine FUMARATE 50 MG TABLET PO SCH (22:04)
[2016-11-20] MEDS: THIAMINE HCL 100 MG TABLET (FP) PO SCH (22:05)
[2016-11-20] MEDS: hydrOXYzine PAMOATE 50 MG CAPSULE (FP) PO PRN (22:05)
[2016-11-21] MEDS: VITAMINS A AND D TOPICAL OINTMENT 60 GM TUBE TP SCH ×4 (00:13→17:43)
[2016-11-21] MEDS: NICOTINE POLACRILEX 4 MG GUM BC PRN ×3 (06:12→14:23)
[2016-11-21] MEDS: CYCLOBENZAPRINE HCL 10 MG TABLET (FP) PO SCH ×3 (06:12→22:06)
[2016-11-21] MEDS: TOLNAFTATE 1% CREAM 15 GM TUBE TP SCH ×2 (10:48→22:06)
[2016-11-21] MEDS: cloNIDine HCL 0.1 MG TABLET PO SCH ×2 (10:48→22:05)
[2016-11-21] MEDS: BUDESONIDE/FORMETEROL FUMARATE 80/4.5 mcg INHALER IH SCH ×2 (10:48→22:06)
[2016-11-21] MEDS: NAPROXEN 500 MG TABLET (FP) PO SCH ×2 (10:49→22:06)
[2016-11-21] MEDS: PANTOPRAZOLE 40 MG TABLET (FP) PO SCH (10:49)
[2016-11-21] MEDS: PRENATAL VITAMINS W/ FOLIC ACID TABLET (FP) PO SCH (10:49)
[2016-11-21] MEDS: EMTRICITAB/RILPIVIRINE/TENOFOV 1 EACH TABLET PO SCH (10:50)
[2016-11-21] MEDS: BUPRENORPHINE/NALOXONE 8 MG/2 MG FILM PACKET SL SCH ×2 (10:50→17:42)
[2016-11-21] MEDS: MAGNESIUM CITRATE 300 ML BOTTLE PO PRN (14:23)
[2016-11-21] MEDS: COLLOIDAL OATMEAL 1 BAR EACH TP PRN (14:23)
[2016-11-21] MEDS: SUVOREXANT 10 MG TABLET PO SCH (22:05)
[2016-11-21] MEDS: QUEtiapine FUMARATE 50 MG TABLET PO SCH (22:05)
[2016-11-21] MEDS: THIAMINE HCL 100 MG TABLET (FP) PO SCH (22:06)
[2016-11-22] MEDS: CYCLOBENZAPRINE HCL 10 MG TABLET (FP) PO SCH ×3 (06:14→22:05)
[2016-11-22] MEDS: NICOTINE POLACRILEX 4 MG GUM BC PRN ×5 (06:15→22:05)
[2016-11-22] MEDS: VITAMINS A AND D TOPICAL OINTMENT 60 GM TUBE TP SCH ×3 (06:16→17:48)
[2016-11-22] MEDS: PRENATAL VITAMINS W/ FOLIC ACID TABLET (FP) PO SCH (10:50)
[2016-11-22] MEDS: NAPROXEN 500 MG TABLET (FP) PO SCH ×2 (10:50→22:04)
[2016-11-22] MEDS: PANTOPRAZOLE 40 MG TABLET (FP) PO SCH (10:51)
[2016-11-22] MEDS: EMTRICITAB/RILPIVIRINE/TENOFOV 1 EACH TABLET PO SCH (10:51)
[2016-11-22] MEDS: BUPRENORPHINE/NALOXONE 8 MG/2 MG FILM PACKET SL SCH ×2 (10:51→17:48)
[2016-11-22] MEDS: cloNIDine HCL 0.1 MG TABLET PO SCH ×2 (10:52→22:05)
[2016-11-22] MEDS: BUDESONIDE/FORMETEROL FUMARATE 80/4.5 mcg INHALER IH SCH ×2 (10:52→22:05)
[2016-11-22] MEDS: TOLNAFTATE 1% CREAM 15 GM TUBE TP SCH ×2 (10:52→22:05)
[2016-11-22] MEDS: THIAMINE HCL 100 MG TABLET (FP) PO SCH (22:04)
[2016-11-22] MEDS: QUEtiapine FUMARATE 50 MG TABLET PO SCH (22:04)
[2016-11-22] MEDS: SUVOREXANT 10 MG TABLET PO SCH (22:05)
[2016-11-23] MEDS: VITAMINS A AND D TOPICAL OINTMENT 60 GM TUBE TP SCH ×4 (00:30→17:54)
[2016-11-23] MEDS: CYCLOBENZAPRINE HCL 10 MG TABLET (FP) PO SCH ×3 (05:59→22:02)
[2016-11-23] MEDS: PANTOPRAZOLE 40 MG TABLET (FP) PO SCH (10:51)
[2016-11-23] MEDS: BUDESONIDE/FORMETEROL FUMARATE 80/4.5 mcg INHALER IH SCH ×2 (10:51→22:02)
[2016-11-23] MEDS: EMTRICITAB/RILPIVIRINE/TENOFOV 1 EACH TABLET PO SCH (10:52)
[2016-11-23] MEDS: PRENATAL VITAMINS W/ FOLIC ACID TABLET (FP) PO SCH (10:52)
[2016-11-23] MEDS: TOLNAFTATE 1% CREAM 15 GM TUBE TP SCH ×2 (10:52→22:02)
[2016-11-23] MEDS: cloNIDine HCL 0.1 MG TABLET PO SCH ×2 (10:52→22:02)
[2016-11-23] MEDS: NAPROXEN 500 MG TABLET (FP) PO SCH ×2 (10:52→22:02)
[2016-11-23] MEDS: BUPRENORPHINE/NALOXONE 8 MG/2 MG FILM PACKET SL SCH ×2 (10:56→17:54)
[2016-11-23] MEDS: NICOTINE POLACRILEX 4 MG GUM BC PRN ×3 (10:57→22:03)
[2016-11-23] MEDS: QUEtiapine FUMARATE 50 MG TABLET PO SCH (22:02)
[2016-11-23] MEDS: SUVOREXANT 10 MG TABLET PO SCH (22:02)
[2016-11-23] MEDS: THIAMINE HCL 100 MG TABLET (FP) PO SCH (22:03)
[2016-11-24] MEDS: VITAMINS A AND D TOPICAL OINTMENT 60 GM TUBE TP SCH ×4 (00:13→17:55)
[2016-11-24] MEDS: NICOTINE POLACRILEX 4 MG GUM BC PRN ×4 (06:02→22:01)
[2016-11-24] MEDS: CYCLOBENZAPRINE HCL 10 MG TABLET (FP) PO SCH ×3 (06:02→21:59)
[2016-11-24] MEDS: PRENATAL VITAMINS W/ FOLIC ACID TABLET (FP) PO SCH (10:24)
[2016-11-24] MEDS: cloNIDine HCL 0.1 MG TABLET PO SCH ×2 (10:24→21:59)
[2016-11-24] MEDS: NAPROXEN 500 MG TABLET (FP) PO SCH ×2 (10:25→21:58)
[2016-11-24] MEDS: PANTOPRAZOLE 40 MG TABLET (FP) PO SCH (10:25)
[2016-11-24] MEDS: EMTRICITAB/RILPIVIRINE/TENOFOV 1 EACH TABLET PO SCH (10:25)
[2016-11-24] MEDS: BUDESONIDE/FORMETEROL FUMARATE 80/4.5 mcg INHALER IH SCH ×2 (10:25→21:59)
[2016-11-24] MEDS: TOLNAFTATE 1% CREAM 15 GM TUBE TP SCH ×2 (10:26→21:59)
[2016-11-24] MEDS: BUPRENORPHINE/NALOXONE 8 MG/2 MG FILM PACKET SL SCH ×2 (10:26→17:54)
[2016-11-24] MEDS: QUEtiapine FUMARATE 50 MG TABLET PO SCH (21:58)
[2016-11-24] MEDS: SUVOREXANT 10 MG TABLET PO SCH (21:58)
[2016-11-24] MEDS: THIAMINE HCL 100 MG TABLET (FP) PO SCH (21:59)
[2016-11-25] MEDS: VITAMINS A AND D TOPICAL OINTMENT 60 GM TUBE TP SCH ×4 (00:46→17:42)
[2016-11-25] MEDS: CYCLOBENZAPRINE HCL 10 MG TABLET (FP) PO SCH ×3 (06:34→22:06)
[2016-11-25] MEDS: cloNIDine HCL 0.1 MG TABLET PO SCH ×2 (11:12→22:07)
[2016-11-25] MEDS: PRENATAL VITAMINS W/ FOLIC ACID TABLET (FP) PO SCH (11:12)
[2016-11-25] MEDS: BUDESONIDE/FORMETEROL FUMARATE 80/4.5 mcg INHALER IH SCH ×2 (11:12→22:07)
[2016-11-25] MEDS: EMTRICITAB/RILPIVIRINE/TENOFOV 1 EACH TABLET PO SCH (11:12)
[2016-11-25] MEDS: NAPROXEN 500 MG TABLET (FP) PO SCH ×2 (11:13→22:07)
[2016-11-25] MEDS: PANTOPRAZOLE 40 MG TABLET (FP) PO SCH (11:13)
[2016-11-25] MEDS: BUPRENORPHINE/NALOXONE 8 MG/2 MG FILM PACKET SL SCH ×2 (11:13→17:42)
[2016-11-25] MEDS: TOLNAFTATE 1% CREAM 15 GM TUBE TP SCH ×2 (11:14→22:07)
[2016-11-25] MEDS: NICOTINE POLACRILEX 4 MG GUM BC PRN ×4 (11:15→22:10)
[2016-11-25] MEDS: ACETAMINOPHEN 325 MG TABLET (FP) PO PRN (11:17)
--- NOTE | 2016-11-25 15:05 | PN ---
[facility] Progress Note Note: patient reports a good response to Belsomra, will r/n medication.
[2016-11-25] MEDS: SUVOREXANT 10 MG TABLET PO SCH (22:06)
[2016-11-25] MEDS: QUEtiapine FUMARATE 50 MG TABLET PO SCH (22:06)
[2016-11-25] MEDS: THIAMINE HCL 100 MG TABLET (FP) PO SCH (22:07)
[2016-11-25] MEDS: AMOXICILLIN 250 MG CAPSULE PO SCH (22:09)
[2016-11-26] MEDS: VITAMINS A AND D TOPICAL OINTMENT 60 GM TUBE TP SCH ×4 (00:47→17:29)
[2016-11-26] MEDS: CYCLOBENZAPRINE HCL 10 MG TABLET (FP) PO SCH ×3 (06:16→21:55)
[2016-11-26] MEDS: EMTRICITAB/RILPIVIRINE/TENOFOV 1 EACH TABLET PO SCH (10:38)
[2016-11-26] MEDS: BUDESONIDE/FORMETEROL FUMARATE 80/4.5 mcg INHALER IH SCH ×2 (10:38→21:57)
[2016-11-26] MEDS: cloNIDine HCL 0.1 MG TABLET PO SCH ×2 (10:39→21:56)
[2016-11-26] MEDS: NAPROXEN 500 MG TABLET (FP) PO SCH ×2 (10:39→21:57)
[2016-11-26] MEDS: PANTOPRAZOLE 40 MG TABLET (FP) PO SCH (10:39)
[2016-11-26] MEDS: AMOXICILLIN 250 MG CAPSULE PO SCH ×2 (10:39→21:56)
[2016-11-26] MEDS: PRENATAL VITAMINS W/ FOLIC ACID TABLET (FP) PO SCH (10:39)
[2016-11-26] MEDS: BUPRENORPHINE/NALOXONE 8 MG/2 MG FILM PACKET SL SCH ×2 (10:40→17:28)
[2016-11-26] MEDS: TOLNAFTATE 1% CREAM 15 GM TUBE TP SCH ×2 (10:41→21:57)
[2016-11-26] MEDS: NICOTINE POLACRILEX 4 MG GUM BC PRN ×3 (10:49→21:57)
[2016-11-26] MEDS: COLLOIDAL OATMEAL 1 BAR EACH TP PRN (10:49)
[2016-11-26] MEDS: QUEtiapine FUMARATE 50 MG TABLET PO SCH (21:55)
[2016-11-26] MEDS: THIAMINE HCL 100 MG TABLET (FP) PO SCH (21:55)
[2016-11-26] MEDS: SUVOREXANT 10 MG TABLET PO SCH (21:56)
[2016-11-27] MEDS: VITAMINS A AND D TOPICAL OINTMENT 60 GM TUBE TP SCH ×4 (00:31→17:35)
[2016-11-27] MEDS: CYCLOBENZAPRINE HCL 10 MG TABLET (FP) PO SCH ×3 (06:19→21:50)
[2016-11-27 07:32] VITALS: TEMP 97.8
[2016-11-27] MEDS: ACETAMINOPHEN 325 MG TABLET (FP) PO PRN ×2 (09:05→21:52)
[2016-11-27] MEDS: cloNIDine HCL 0.1 MG TABLET PO SCH ×2 (10:48→21:51)
[2016-11-27] MEDS: AMOXICILLIN 250 MG CAPSULE PO SCH ×2 (10:49→21:50)
[2016-11-27] MEDS: PANTOPRAZOLE 40 MG TABLET (FP) PO SCH (10:49)
[2016-11-27] MEDS: PRENATAL VITAMINS W/ FOLIC ACID TABLET (FP) PO SCH (10:49)
[2016-11-27] MEDS: BUDESONIDE/FORMETEROL FUMARATE 80/4.5 mcg INHALER IH SCH ×2 (10:49→21:51)
[2016-11-27] MEDS: EMTRICITAB/RILPIVIRINE/TENOFOV 1 EACH TABLET PO SCH (10:49)
[2016-11-27] MEDS: BUPRENORPHINE/NALOXONE 8 MG/2 MG FILM PACKET SL SCH ×2 (10:50→17:35)
[2016-11-27] MEDS: NAPROXEN 500 MG TABLET (FP) PO SCH ×2 (10:50→21:51)
[2016-11-27] MEDS: TOLNAFTATE 1% CREAM 15 GM TUBE TP SCH ×2 (10:51→21:51)
[2016-11-27] MEDS: NICOTINE POLACRILEX 4 MG GUM BC PRN ×4 (10:54→17:58)
[2016-11-27] MEDS: hydrOXYzine PAMOATE 50 MG CAPSULE (FP) PO PRN (12:31)
[2016-11-27] MEDS: QUEtiapine FUMARATE 50 MG TABLET PO SCH (21:50)
[2016-11-27] MEDS: SUVOREXANT 10 MG TABLET PO SCH (21:50)
[2016-11-27] MEDS: THIAMINE HCL 100 MG TABLET (FP) PO SCH (21:51)
[2016-11-28] MEDS: VITAMINS A AND D TOPICAL OINTMENT 60 GM TUBE TP SCH ×2 (00:27→06:13)
[2016-11-28] MEDS: CYCLOBENZAPRINE HCL 10 MG TABLET (FP) PO SCH (06:13)
[2016-11-28 07:20] VITALS: BP 106/63; PULSE 73
--- NOTE | 2016-11-28 09:37 | PN ---
Psychiatric Progress Note Vital Signs: Vital Signs Period Temp Pulse Resp BP Sys/Hall Pulse Ox Last 24 Hr 97.8 F 73 18-18 106/63 Date of Session: 11/28/16 Chief Complaint:: discharge visit HPI: HIV medically managed. ROS: Patient addressed alcohol, cocaine, opioid, nicotine dependence comorbid insomnia, shizoaffectve disorder. Current Medications: Active Medications Generic Name Dose Route Start Last Admin Trade Name Freq PRN Reason Stop Dose Admin Acetaminophen 650 mg 10/26/16 09:56 11/27/16 21:52 Tylenol - PO 650 mg Q4H PRN Administration FEVER OR PAIN Al Hydroxide/Mg Hydroxide 30 ml 10/26/16 09:56 11/19/16 06:14 Mylanta Oral Suspension - PO 30 ml Q6H PRN Administration DYSPEPSIA Albuterol Sulfate 2 puff 10/26/16 09:57 Ventolin Hfa Inhaler - IH Q4H PRN ASTHMA Amoxicillin 750 mg 11/25/16 22:00 11/27/16 21:50 Amoxicillin - PO 750 mg BID BOBY Administration Budesonide/Formoterol Fumarate 2 puff 10/26/16 10:00 11/27/16 21:51 Symbicort 80/4.5mcg - IH Not Given BID BOBY Buprenorphine/Naloxone 1 each 11/12/16 18:00 11/27/16 17:35 Suboxone 8mg/2mg Sl Film - SL 1 each DAILY@18 BOBY Administration Buprenorphine/Naloxone 2 each 11/20/16 10:00 11/27/16 10:50 Suboxone 8mg/2mg Sl Film - SL 2 each DAILY BOBY Administration Clonidine 0.1 mg 11/19/16 22:00 11/27/16 21:51 Catapres - PO Not Given BID BOBY Colloidal Oatmeal 1 applic 11/08/16 13:17 11/26/16 10:49 Aveeno Soap - TP 1 applic DAILY PRN Administration HYGEINE Cyclobenzaprine HCl 10 mg 11/19/16 15:30 11/28/16 06:13 Flexeril - PO Not Given TID BOBY Diphenhydramine HCl 50 mg 10/26/16 09:56 11/18/16 23:35 Benadryl - PO 50 mg HSMR1 PRN Administration INSOMNIA Emtricitabine/Rilpivirine/Tenofovir 1 each 10/26/16 10:00 11/27/16 10:49 Complera - PO 1 each DAILY BOBY Administration Eucalyptus/Menthol/Phenol/Sorbitol 1 each 10/26/16 09:56 11/05/16 08:25 Cepastat Lozenge - MM 1 each Q4H PRN Administration SORE THROAT Guaifenesin 10 ml 10/26/16 09:56 11/09/16 08:55 Robitussin Dm - PO 10 ml Q6H PRN Administration COUGH Hydroxyzine Pamoate 50 mg 10/26/16 09:56 11/27/16 12:31 Vistaril - PO 50 mg Q4H PRN Administration AGITATION Loperamide HCl 4 mg 10/26/16 09:56 10/28/16 13:49 Imodium - PO 4 mg Q6H PRN Administration DIARRHEA Magnesium Citrate 300 ml 10/26/16 09:56 11/21/16 14:23 Citroma - PO 300 ml Q48H PRN Administration CONSTIPATION Magnesium Hydroxide 30 ml 10/26/16 09:56 Milk Of Magnesia - PO DAILY PRN CONSTIPATION Naproxen 500 mg 11/19/16 22:00 11/27/16 21:51 Naprosyn - PO 500 mg BID BOBY Administration Nicotine Polacrilex 4 mg 10/26/16 09:56 11/27/16 17:58 Nicorette Gum - BC 4 mg Q2H PRN Administration NICOTINE REPLACEMENT RX Ondansetron HCl 8 mg 11/19/16 13:54 11/20/16 08:52 Zofran Odt - SL 8 mg Q6H PRN Administration NAUSEA AND/OR VOMITING Pantoprazole Sodium 40 mg 11/19/16 15:30 11/27/16 10:49 Protonix - PO 40 mg DAILY BOBY Administration Multivit/Folic Acid/Iron 1 tab 10/26/16 10:00 11/27/16 10:49 Vitamins (Sjr) - PO 1 tab DAILY BOBY Administration Pseudoephedrine/Triprolidine 1 combo 10/26/16 09:56 Actifed - PO TID PRN NASAL CONGESTION Quetiapine Fumarate 50 mg 11/15/16 22:00 11/27/16 21:50 Seroquel - PO 50 mg HS BOBY Administration Thiamine HCl 100 mg 10/26/16 22:00 11/27/16 21:51 Vitamin B1 - PO 100 mg HS BOBY Administration Tolnaftate 1 applic 10/26/16 10:00 11/27/16 21:51 Tinactin 1% Cream - TP Not Given BID BOBY Vitamin A/Vitamin D 1 applic 11/08/16 18:00 11/28/16 06:13 Vitamin A & D Top Oint - TP Not Given Q6HPO BOBY Current Side Effect: No Lab tests ordered: No Lab tests reviewed: Yes Provider note:: Patient has completed today his treatment and met his term goals, he will continue to address his issues [facility] outpatient treatment program. He focused on insights he gained in this treatment and importance of changing attitudes for the utilization of supports available to maintain abstinence. Patient was educated into importance of continue maintain abstinence and take his medications as indicated, Seroquel has been effective for the management of his psychiatric issues in terms of mood stabilization, sleep improvement and anxiety reduction , scripts provided for 30 days, patient is stable for discharge today. Total face to face time:: 20 Mental Status Exam - Mental Status Exam Alert and Oriented to: Time, Place, Person Cognitive Function: Good Patient Appearance: Well Groomed Mood: Hopeful Affect: Appropriate, Mood Congruent Patient Behavior: Appropriate, Cooperative Speech Pattern: Clear, Appropriate Voice Loudness: Normal Thought Process: Intact, Goal Oriented Thought Disorder: Not Present Hallucinations: Denies Suicidal Ideation: Denies Homicidal Ideation: Denies Insight/Judgement: Fair Sleep: Well Appetite: Good Muscle strength/Tone: Normal Gait/Station: Normal Psychiatric Treatment Plan - Problem List (1) Cocaine dependence Current Visit: Yes (2) Alcohol dependence Current Visit: Yes Qualifiers: Substance use status: uncomplicated Qualified Code(s): F10.20 - Alcohol dependence, uncomplicated (3) Opioid dependence Current Visit: Yes Qualifiers: Substance use status: uncomplicated Qualified Code(s): F11.20 - Opioid dependence, uncomplicated (4) Insomnia Current Visit: Yes (5) Schizoaffective disorder Current Visit: Yes
[2016-11-28] MEDS: PRENATAL VITAMINS W/ FOLIC ACID TABLET (FP) PO SCH (10:44)
[2016-11-28] MEDS: PANTOPRAZOLE 40 MG TABLET (FP) PO SCH (10:44)
[2016-11-28] MEDS: AMOXICILLIN 250 MG CAPSULE PO SCH (10:45)
[2016-11-28] MEDS: BUDESONIDE/FORMETEROL FUMARATE 80/4.5 mcg INHALER IH SCH (10:45)
[2016-11-28] MEDS: TOLNAFTATE 1% CREAM 15 GM TUBE TP SCH (10:45)
[2016-11-28] MEDS: cloNIDine HCL 0.1 MG TABLET PO SCH (10:46)
[2016-11-28] MEDS: EMTRICITAB/RILPIVIRINE/TENOFOV 1 EACH TABLET PO SCH (10:46)
[2016-11-28] MEDS: BUPRENORPHINE/NALOXONE 8 MG/2 MG FILM PACKET SL SCH (10:47)
[2016-11-28] MEDS: NAPROXEN 500 MG TABLET (FP) PO SCH (10:47)
== END 2016-11-28 11:00 | disposition home or self-care (01) | DRG 897 ==
LOC: YASAS 08:50 → Y6N 09:59 → Y5N 10-31 13:22
PROVIDERS: ADMIT Internal Medicine; ATTEND Psychiatry & Neurology Psychiatry
PROC: HZ2ZZZZ Detoxification Services for Substance Abuse Treatment (ICD-10-PCS; principal; 2016-10-26)
DX: F11.20 Opioid dependence, uncomplicated (principal); F10.230 Alcohol dependence with withdrawal, uncomplicated; F33.1 Major depressive disorder, recurrent, moderate; F31.9 Bipolar disorder, unspecified; F25.9 Schizoaffective disorder, unspecified; G47.00 Insomnia, unspecified; F43.10 Post-traumatic stress disorder, unspecified; J45.20 Mild intermittent asthma, uncomplicated; Z21 Asymptomatic human immunodeficiency virus [HIV] infection status
CPT/HCPCS: 36415; 70160-TC; 80053; 81003; 85027; 86593; 93005; 93010

== ENCOUNTER 2017-01-29 11:10 | Inpatient (IN) | payer OTHER ==
[2017-01-29 12:25] VITALS: BMI 29.7
--- NOTE | 2017-01-29 14:37 | HP ---
CIWA Score - CIWA Score Nausea/Vomitin-Mild Nausea/No Vomiting Muscle Tremors: 4-Moderate,w/Arms Extend Anxiety: 4-Mod. Anxious/Guarded Agitation: 4-Moderately Restless Paroxysmal Sweats: 3 Orientation: 0-Oriented Tacttile Disturbances: 0-None Auditory Disturbances: 0-None Visual Disturbances: 0-None Headache: 1-Very Mild CIWA-Ar Total Score: 17 Admission ROS S - HPI Chief Complaint: I am here for detox. Allergies/Adverse Reactions: Allergies Allergy/AdvReac Type Severity Reaction Status Date / Time Fish Containing Products Allergy Intermediate Swelling Verified 01/29/17 14:00 No Known Drug Allergies Allergy Verified 01/29/17 14:00 History of Present Illness: pt is a 37yr old male with a history of alcohol and heroin dependence seeking detox for treatment. pt has also been taking suboxone last time he received his suboxone at his pharmacy a week ago. pt took his one strip of suboxone two days ago. pt prefers to continue taking his suboxone for maintenance and not be on a methadone detox regimen. Exam Limitations: No Limitations - Ebola screening Have you traveled outside of the country in the last 21 days: No Have you had contact with anyone from an Ebola affected area: No Have you been sick,other than usual withdrawal symptoms: No Do you have a fever: No - Review of Systems Constitutional: Chills, Diaphoresis EENT: reports: Tearing, Nose Congestion Respiratory: reports: No Symptoms reported Cardiac: reports: No Symptoms Reported GI: reports: Poor Appetite, Poor Fluid Intake : reports: No Symptoms Reported Musculoskeletal: reports: Joint Pain, Muscle Pain, Muscle Weakness Integumentary: reports: Flushing, Sweating Neuro: reports: Headache, Tingling, Tremors Endocrine: reports: Excessive Sweating, Flushing, Intolerance to Cold, Intolerance to Heat Hematology: reports: No Symptoms Reported Psychiatric: reports: Judgement Intact, Mood/Affect Appropiate, Orientated x3, Agitated, Anxious Other Systems: Reviewed and Negative Patient History - Patient Medical History Hx Anemia: No Hx Asthma: Yes (Tx with Albuterol) Hx Chronic Obstructive Pulmonary Disease (COPD): No Hx Cancer: No Hx Cardiac Disorders: No Hx Congestive Heart Failure: No Hx Hypertension: No Hx Hypercholesterolemia: No Hx Pacemaker: No HX Cerebrovascular Accident: No Hx Seizures: No Hx Dementia: No Hx Diabetes: No Hx Gastrointestinal Disorders: No Hx Liver Disease: No Hx Genitourinary Disorders: No Hx Sexually Transmitted Disorders: No Hx Renal Disease (ESRD): No Hx Thyroid Disease: No Hx Human Immunodeficiency Virus (HIV): Yes (since 2006 , vl <20; cd4 = 755) Hx Hepatitis C: No (negative) Hx Depression: No Hx Suicide Attempt: No (denies) Hx Bipolar Disorder: Yes (hospitalized a year ago [facility]) Hx Schizophrenia: No - Patient Surgical History Past Surgical History: No Hx Neurologic Surgery: No Hx Cataract Extraction: No Hx Cardiac Surgery: No Hx Lung Surgery: No Hx Breast Surgery: No Hx Breast Biopsy: No Hx Abdominal Surgery: No Hx Appendectomy: No Hx Cholecystectomy: No Hx Genitourinary Surgery: No Hx Section: No Hx Orthopedic Surgery: No Anesthesia Reaction: No - PPD History Previous Implant?: Yes Documented Results: Negative w/proof Date: 10/28/16 Results: 0mm PPD to be Administered?: No - Reproductive History Patient is a Female of Child Bearing Age (11 -55 yrs old): No - Smoking Cessation Smoking history: Current every day smoker Have you smoked in the past 12 months: Yes Aproximately how many cigarettes per day: 15 Cigars Per Day: 0 Hx Chewing Tobacco Use: No Initiated information on smoking cessation: Yes 'Breaking Loose' booklet given: 01/29/17 - Substance & Tx. History Hx Alcohol Use: Yes Hx Substance Use: Yes Substance Use Type: Alcohol, Heroin Hx Substance Use Treatment: Yes (last detox 10/2016 at [facility]) - Substances Abused Cocaine Route: Inhalation Frequency: Daily Amount used: $250 Age of first use: 17 Date of Last Use: 01/29/17 Heroin Route: Inhalation Frequency: 1-2 times per week Amount used: 6-7 bags Age of first use: 17 Date of Last Use: 01/29/17 Alcohol-beer/yady Route: Oral Frequency: Daily Amount used: 2-6 pks./8 (16 oz.) Age of first use: 35 Date of Last Use: 01/29/17 Family Disease History - Family Disease History Family Disease History: Other: Father (living,etoh), Mother (, overdose) , Brother (two - living - depression), Sister (three) Admission Physical Exam [facility] - Vital Signs Vital Signs: Vital Signs - 24 hr 01/29/17 12:21 Temperature 96.4 F L Pulse Rate 93 H Respiratory 20 Rate Blood Pressure 129/73 - Physical General Appearance: Yes: Appropriately Dressed, Moderate Distress, Tremorous, Irritable, Sweating, Anxious HEENTM: Yes: Normal Voice, Nasal Congestion, Rhinorrhea Respiratory: Yes: Lungs Clear, Normal Breath Sounds, No Respiratory Distress Neck: Yes: No masses,lesions,Nodules Breast: Yes: Within Normal Limits Cardiology: Yes: Regular Rhythm, Regular Rate, S1, S2 Abdominal: Yes: Normal Bowel Sounds, Non Tender, Soft Genitourinary: Yes: Within Normal Limits Back: Yes: Normal Inspection Musculoskeletal: Yes: full range of Motion, Back pain, Muscle Pain Extremities: Yes: Normal Capillary Refill, Normal Inspection, Non-Tender, Tremors Neurological: Yes: Fully Oriented, Alert, Normal Response Integumentary: Yes: Normal Color, Diaphoresis Lymphatic: Yes: Within Normal Limits - Diagnostic (1) Alcohol dependence with uncomplicated withdrawal Current Visit: No Status: Chronic (2) Cocaine dependence Current Visit: No Status: Chronic Qualifiers: Substance use status: uncomplicated Qualified Code(s): F14.20 - Cocaine dependence, uncomplicated (3) HIV (human immunodeficiency virus infection) Current Visit: No Status: Chronic (4) Opioid dependence with withdrawal Current Visit: No Status: Chronic Cleared for Admission [facility] - Detox or Rehab [facility] Level of Care: Medically Managed Detox Regimen/Protocol: Librium [facility] Breath Alcohol Content Breath Alcohol Content: 0 Urine Drug Screen - Results Drug Screen Negative: No Urine Drug Screen Results: CARLA-Cocaine, OPI-Opiates
[2017-01-29] MEDS ORDERED: chlordiazePOXIDE HCL 25 MG CAPSULE PO PRN (14:58)
[2017-01-29] MEDS ORDERED: guaiFENesin/D-METHORPHAN HB 10 ML UNIT-DOSE CUPS PO PRN (14:58)
[2017-01-29] MEDS ORDERED: P-EPHED 60MG/TRIPROLIDI 2.5MG TABLET PO PRN (14:58)
[2017-01-29] MEDS ORDERED: MENTHOL/PHENOL 1 EACH UD MM PRN (14:58)
[2017-01-29] MEDS ORDERED: LOPERAMIDE HCL 2 MG CAPSULE PO PRN (14:58)
[2017-01-29] MEDS ORDERED: MAGNESIUM CITRATE 300 ML BOTTLE PO PRN (14:58)
[2017-01-29] MEDS ORDERED: MAGNESIUM HYDROX 2400MG/30ML ORAL SUSPENSION 30 ML CUP PO PRN (14:58)
[2017-01-29] MEDS ORDERED: IBUPROFEN 400 MG TABLET (FP) PO PRN (14:58)
[2017-01-29] MEDS ORDERED: ALBUTEROL SO4 18 GM HFA INHALER IH PRN (15:01)
[2017-01-29] MEDS ORDERED: chlordiazePOXIDE HCL 25 MG CAPSULE PO ONE (15:47)
[2017-01-29] MEDS: chlordiazePOXIDE HCL 25 MG CAPSULE PO SCH ×2 (16:53→22:14)
[2017-01-29] MEDS: ACETAMINOPHEN 325 MG TABLET (FP) PO PRN (20:23)
[2017-01-29] MEDS ORDERED: BUPRENORPHINE/NALOXONE 8 MG/2 MG FILM PACKET SL SCH (22:00)
[2017-01-29] MEDS: THIAMINE HCL 100 MG TABLET (FP) PO SCH (22:14)
[2017-01-29] MEDS: BUDESONIDE/FORMETEROL FUMARATE 80/4.5 mcg INHALER IH SCH (22:16)
[2017-01-29] MEDS ORDERED: BUPRENORPHINE/NALOXONE 8 MG/2 MG FILM PACKET SL ONE (22:36)
[2017-01-29] MEDS: NICOTINE POLACRILEX 4 MG GUM BC PRN (23:13)
[2017-01-30] MEDS: hydrOXYzine PAMOATE 50 MG CAPSULE (FP) PO PRN (01:47)
[2017-01-30] MEDS: chlordiazePOXIDE HCL 25 MG CAPSULE PO SCH ×4 (05:28→22:22)
[2017-01-30] MEDS ORDERED: BUPRENORPHINE/NALOXONE 8 MG/2 MG FILM PACKET SL SCH (06:00)
[2017-01-30] MEDS: NICOTINE POLACRILEX 4 MG GUM BC PRN ×5 (07:16→22:24)
[2017-01-30] MEDS: PRENATAL VITAMINS W/ FOLIC ACID TABLET (FP) PO SCH (09:46)
[2017-01-30] MEDS: NICOTINE 21 MG/24 HOURS TOPICAL PATCH TD SCH (09:47)
[2017-01-30] MEDS: BUDESONIDE/FORMETEROL FUMARATE 80/4.5 mcg INHALER IH SCH ×2 (10:06→22:23)
[2017-01-30 10:22] LABS: URINE APPEARANCE CLEAR; URINE BILIRUBIN NEGATIVE (NEGATIVE); URINE BLOOD NEGATIVE (NEGATIVE); URINE COLOR LTYELLOW; URINE GLUCOSE (UA) NEGATIVE (NEGATIVE); URINE KETONE NEGATIVE (NEGATIVE); URINE NITRITE NEGATIVE (NEGATIVE); URINE PROTEIN NEGATIVE (NEGATIVE); URINE UROBILINOGEN NEGATIVE mg/dL (0.2-1.0)
[2017-01-30 10:33] LABS: MCH 29.7 pg (25.7-33.7); MCHC 33.3 g/dl (32.0-35.9); MEAN CELL VOLUME 89.1 fl (80-96); MEAN PLT VOLUME 9.3 fl (7.5-11.1); PLATELET COUNT 254 K/MM3 (134-434); RDW 14.2 % (11.9-15.9); WHITE BLOOD COUNT 6.6 K/mm3 (4.0-10.0)
[2017-01-30 10:53] LABS: ALBUMIN 3.5 g/dl (3.4-5.0); ANION GAP 8 (8-16); CALCIUM 8.1 mg/dL (8.5-10.1); CO2 25 mmol/L (21-32); GLUCOSE,RANDOM 101 mg/dL (74-106); SGOT/AST 38 U/L (15-37); SGPT/ALT 41 U/L (12-78)
[2017-01-30 10:56] LABS: ALK PHOS 81 U/L (45-117); BILIRUBIN,TOTAL 0.5 mg/dL (0.2-1.0); CREATININE 1.3 mg/dL (0.7-1.3); TOT PROT 7.2 g/dl (6.4-8.2)
--- NOTE | 2017-01-30 12:04 | CONSULT ---
[facility] Psychiatric Consult - Data Date of interview: 01/30/17 Admission source: [facility] Identifying data: This is 37 years old male with Bipolar Disorder history, PTSD , psychiatric hospitalization history intoxicated with: Alcohol, Opioids, Cocaine Substance Abuse History: - Smoking Cessation. Smoking history: Current every day smoker. Have you smoked in the past 12 months: Yes. Aproximately how many cigarettes per day: 15. Cigars Per Day: 0. Hx Chewing Tobacco Use: No. Initiated information on smoking cessation: Yes. 'Breaking Loose' booklet given : 01/29/17. - Substance & Tx. History. Hx Alcohol Use: Yes. Hx Substance Use : Yes. Substance Use Type: Alcohol, Heroin. Hx Substance Use Treatment: Yes ( last detox 10/2016 at [facility]). - Substances Abused. Cocaine. Route: Inhalation. Frequency: Daily. Amount used: $250. Age of first use: 17. Date of Last Use: 01/29/17. Heroin. Route: Inhalation. Frequency: 1-2 times per week. Amount used: 6-7 bags. Age of first use: 17. Date of Last Use: . Alcohol-beer/yady. Route: Oral. Frequency: Daily. Amount used : 2-6 pks./8 (16 oz.). Age of first use: 35. Date of Last Use: 01/29/17 Medical History: HIV+ Psychiatric History: Cathie echolswilly histopry of Bipolar disorder, Schizoaffective disorder, PTSD, depression and Insomnia, reports taking prior to admission: Ambien 10mg po qhs. Seroquel 150mg po qhs. Cathie lewis most recent psychiatric hospitalization on about 4 years ago at [facility]. Physical/Sexual Abuse/Trauma History: Denies Additional Comment: Ambien 10mg po qhs. Seroquel 150mg po qhs Mental Status Exam - Mental Status Exam Alert and Oriented to: Person Cognitive Function: Fair Patient Appearance: Unkempt Mood: Sad Patient Behavior: Sedated Speech Pattern: Delayed, Artificially Ventilated Thought Process: Goal Oriented Thought Disorder: Being Controlled Hallucinations: Denies Suicidal Ideation: Denies Homicidal Ideation: Denies Insight/Judgement: Fair Sleep: Difficulty falling asleep Appetite: Fair Muscle strength/Tone: Mild Hypotonicity Gait/Station: Shuffling Additional Comments: Ambien 10mg po qhs. Seroquel 150mg po qhs Psychiatric Findings - Problem List ([place] 1, 2,3) (1) Bipolar disorder Current Visit: No Status: Acute (2) Heroin dependence Current Visit: No Status: Acute (3) Non compliance with medical treatment Current Visit: No Status: Acute (4) Schizoaffective disorder Current Visit: No Status: Acute (5) Alcohol dependence Current Visit: No Status: Chronic Qualifiers: Substance use status: uncomplicated Qualified Code(s): F10.20 - Alcohol dependence, uncomplicated (6) Alcohol dependence with uncomplicated withdrawal Current Visit: No Status: Chronic (7) Cocaine dependence Current Visit: No Status: Chronic Qualifiers: Substance use status: uncomplicated Qualified Code(s): F14.20 - Cocaine dependence, uncomplicated (8) Major depressive disorder, recurrent episode, moderate Current Visit: No Status: Chronic (9) Nicotine dependence Current Visit: No Status: Chronic Qualifiers: Nicotine product type: cigarettes Substance use status: uncomplicated Qualified Code(s): F17.210 - Nicotine dependence, cigarettes, uncomplicated (10) Opioid dependence Current Visit: No Status: Chronic Qualifiers: Substance use status: uncomplicated Qualified Code(s): F11.20 - Opioid dependence, uncomplicated (11) Opioid dependence with withdrawal Current Visit: No Status: Chronic (12) Posttraumatic stress disorder Current Visit: No Status: Chronic - Initial Treatment Plan Initial Treatment Plan: Ambien 10mg po qhs. Seroquel 150mg po qhs
--- NOTE | 2017-01-30 12:34 | EKG ---
Test Reason : Blood Pressure : / mmHG Vent. Rate : 078 BPM Atrial Rate : 078 BPM P-R Int : 134 ms QRS Dur : 098 ms QT Int : 436 ms P-R-T Axes : 065 081 070 degrees QTc Int : 497 ms NORMAL SINUS RHYTHM PROLONGED QT ABNORMAL ECG WHEN COMPARED WITH ECG OF 26-OCT-2016 10:42, NO SIGNIFICANT CHANGE WAS FOUND Confirmed by JASON MALAVE MD ([id number]) on 01/30/2017 12:34:39 PM Referred By: Confirmed By:JASON MALAVE MD
[2017-01-30] MEDS: RANITIDINE HCL 150 MG TABLET (FP) PO SCH ×2 (13:15→22:22)
--- NOTE | 2017-01-30 13:28 | PN ---
[facility] CIWA - CIWA Score Nausea/Vomitin-No Nausea/No Vomiting Muscle Tremors: None Anxiety: 4-Mod. Anxious/Guarded Agitation: 3 Paroxysmal Sweats: 3 Orientation: 0-Oriented Tacttile Disturbances: 2-Mild Itch/Numbness/Burn Auditory Disturbances: 2-Mild Harshness/Frighten Visual Disturbances: 3-Moderate Sensitivity Headache: 0-None Present CIWA-Ar Total Score: 17 S Progress Note (SOAP) Subjective: Diarrhea, Sweating, Anxious, Body Aches. Objective: PT. A & O X 3, OBSERVED AMBULATING ON UNIT. NO ACUTE DISTRESS. 01/30/17 13:30 Vital Signs Temperature 98.2 F 01/30/17 13:17 Pulse Rate 84 01/30/17 13:17 Respiratory Rate 20 01/30/17 13:17 Blood Pressure 121/83 01/30/17 13:17 O2 Sat by Pulse Oximetry (%) Laboratory Tests 01/30/17 01/30/17 01/30/17 06:00 06:00 06:00 WBC 6.6 D RBC 4.72 Hgb 14.0 Hct 42.0 MCV 89.1 MCH 29.7 MCHC 33.3 RDW 14.2 Plt Count 254 D MPV 9.3 Sodium 138 Potassium 3.9 Chloride 105 Carbon Dioxide 25 Anion Gap 8 BUN 15 D Creatinine 1.3 D Creat Clearance w eGFR > 60 Random Glucose 101 Calcium 8.1 L Total Bilirubin 0.5 D AST 38 H D ALT 41 D Alkaline Phosphatase 81 Total Protein 7.2 Albumin 3.5 Urine Color Urine Appearance Urine pH Ur Specific [place] Urine Protein Urine Glucose (UA) Urine Ketones Urine Blood Urine Nitrite Urine Bilirubin Urine Urobilinogen RPR Titer Nonreactive 01/30/17 08:00 WBC RBC Hgb Hct MCV MCH MCHC RDW Plt Count MPV Sodium Potassium Chloride Carbon Dioxide Anion Gap BUN Creatinine Creat Clearance w eGFR Random Glucose Calcium Total Bilirubin AST ALT Alkaline Phosphatase Total Protein Albumin Urine Color Ltyellow Urine Appearance Clear Urine pH 6.0 Ur Specific [place] 1.016 Urine Protein Negative Urine Glucose (UA) Negative Urine Ketones Negative Urine Blood Negative Urine Nitrite Negative Urine Bilirubin Negative Urine Urobilinogen Negative RPR Titer LABS NOTED. Assessment: 01/30/17 13:31 WITHDRAWAL SYMPTOMS. Plan: CONTINUE DETOX. PT. REPORTS THAT, AT HOME, HE TAKES SUBOXONE TID @ 1000, 1400, AND 1800. DAILY SUBOXONE DOSING SCHEDULE WHILE ADMITTED FOR DETOX CHANGED ACCORDINGLY. PRN IMMODIUUM FOR DIARRHEA. INCREASE DAILY PO FLUID INTAKE.
[2017-01-30] MEDS: BUPRENORPHINE/NALOXONE 8 MG/2 MG FILM PACKET SL SCH ×2 (14:32→17:08)
[2017-01-30 17:00] LABS: URINE LEUK ESTERASE TRACE (NEGATIVE)
[2017-01-30] MEDS: ACETAMINOPHEN 325 MG TABLET (FP) PO PRN (17:10)
[2017-01-30 20:03] LABS: URINE RBC 0-1 /hpf (0-3)
[2017-01-30 20:04] LABS: URINE BACTERIA MODERATE /hpf (NEGATIVE)
[2017-01-30] MEDS: ZOLPIDEM TARTRATE 10 MG TABLET (PARK CARE ONLY) PO PRN (22:22)
[2017-01-30] MEDS: QUEtiapine FUMARATE 50 MG TABLET PO SCH (22:22)
[2017-01-30] MEDS: THIAMINE HCL 100 MG TABLET (FP) PO SCH (22:22)
[2017-01-31] MEDS: chlordiazePOXIDE HCL 25 MG CAPSULE PO SCH ×2 (05:36→10:13)
[2017-01-31] MEDS: NICOTINE POLACRILEX 4 MG GUM BC PRN ×6 (05:37→22:28)
[2017-01-31] MEDS: ACETAMINOPHEN 325 MG TABLET (FP) PO PRN (06:35)
[2017-01-31] MEDS: BUPRENORPHINE/NALOXONE 8 MG/2 MG FILM PACKET SL SCH ×3 (10:13→17:41)
[2017-01-31] MEDS: PRENATAL VITAMINS W/ FOLIC ACID TABLET (FP) PO SCH (10:13)
[2017-01-31] MEDS: RANITIDINE HCL 150 MG TABLET (FP) PO SCH ×2 (10:13→22:20)
[2017-01-31] MEDS: BUDESONIDE/FORMETEROL FUMARATE 80/4.5 mcg INHALER IH SCH ×2 (10:13→22:20)
[2017-01-31] MEDS: NICOTINE 21 MG/24 HOURS TOPICAL PATCH TD SCH (10:14)
[2017-01-31] MEDS: MAG HYDROX/AL HYDROX/SIMETH 30 ML UNIT-DOSE CUP PO PRN ×2 (10:14→23:17)
[2017-01-31] MEDS: hydrOXYzine PAMOATE 50 MG CAPSULE (FP) PO PRN (12:56)
--- NOTE | 2017-01-31 14:57 | PN ---
[facility] CIWA - CIWA Score Nausea/Vomitin-No Nausea/No Vomiting Muscle Tremors: 4-Moderate,w/Arms Extend Anxiety: 4-Mod. Anxious/Guarded Agitation: 3 Paroxysmal Sweats: 3 Orientation: 0-Oriented Tacttile Disturbances: 2-Mild Itch/Numbness/Burn Auditory Disturbances: 1-Very Mild Visual Disturbances: 1-Very Mild Sensitivity Headache: 0-None Present CIWA-Ar Total Score: 18 S Progress Note (SOAP) Subjective: Tremors, Stomach Cramping, Anxious, Diarrhea. Objective: PT. A & O X 3, OBSERVED AMBULATING ON UNIT. NO ACUTE DISTRESS. 01/31/17 14:58 Vital Signs Temperature 98.2 F 01/31/17 13:44 Pulse Rate 87 01/31/17 13:44 Respiratory Rate 20 01/31/17 13:44 Blood Pressure 126/77 01/31/17 13:44 O2 Sat by Pulse Oximetry (%) Laboratory Tests 01/30/17 01/30/17 01/30/17 06:00 06:00 06:00 WBC 6.6 D RBC 4.72 Hgb 14.0 Hct 42.0 MCV 89.1 MCH 29.7 MCHC 33.3 RDW 14.2 Plt Count 254 D MPV 9.3 Sodium 138 Potassium 3.9 Chloride 105 Carbon Dioxide 25 Anion Gap 8 BUN 15 D Creatinine 1.3 D Creat Clearance w eGFR > 60 Random Glucose 101 Calcium 8.1 L Total Bilirubin 0.5 D AST 38 H D ALT 41 D Alkaline Phosphatase 81 Total Protein 7.2 Albumin 3.5 Urine Color Urine Appearance Urine pH Ur Specific [place] Urine Protein Urine Glucose (UA) Urine Ketones Urine Blood Urine Nitrite Urine Bilirubin Urine Urobilinogen Ur Leukocyte Esterase Urine RBC Urine WBC Urine Bacteria RPR Titer Nonreactive 01/30/17 08:00 WBC RBC Hgb Hct MCV MCH MCHC RDW Plt Count MPV Sodium Potassium Chloride Carbon Dioxide Anion Gap BUN Creatinine Creat Clearance w eGFR Random Glucose Calcium Total Bilirubin AST ALT Alkaline Phosphatase Total Protein Albumin Urine Color Ltyellow Urine Appearance Clear Urine pH 6.0 Ur Specific [place] 1.016 Urine Protein Negative Urine Glucose (UA) Negative Urine Ketones Negative Urine Blood Negative Urine Nitrite Negative Urine Bilirubin Negative Urine Urobilinogen Negative Ur Leukocyte Esterase Trace H Urine RBC 0-1 Urine WBC 2-5 Urine Bacteria Moderate RPR Titer LABS NOTED. Assessment: 01/31/17 14:58 WITHDRAWAL SYMPTOMS. Plan: CONTINUE DETOX.
[2017-01-31] MEDS: chlordiazePOXIDE 5 MG CAPSULE PO SCH ×2 (17:40→22:20)
[2017-01-31] MEDS: QUEtiapine FUMARATE 50 MG TABLET PO SCH (22:20)
[2017-01-31] MEDS: THIAMINE HCL 100 MG TABLET (FP) PO SCH (22:20)
[2017-01-31] MEDS: ZOLPIDEM TARTRATE 10 MG TABLET (PARK CARE ONLY) PO PRN (22:20)
[2017-02-01] MEDS: chlordiazePOXIDE 5 MG CAPSULE PO SCH ×2 (05:26→10:05)
[2017-02-01] MEDS: NICOTINE POLACRILEX 4 MG GUM BC PRN ×4 (05:27→17:39)
[2017-02-01] MEDS: RANITIDINE HCL 150 MG TABLET (FP) PO SCH ×2 (10:04→22:07)
[2017-02-01] MEDS: BUPRENORPHINE/NALOXONE 8 MG/2 MG FILM PACKET SL SCH ×3 (10:04→17:38)
[2017-02-01] MEDS: BUDESONIDE/FORMETEROL FUMARATE 80/4.5 mcg INHALER IH SCH ×2 (10:04→22:07)
[2017-02-01] MEDS: NICOTINE 21 MG/24 HOURS TOPICAL PATCH TD SCH (10:08)
[2017-02-01] MEDS: PRENATAL VITAMINS W/ FOLIC ACID TABLET (FP) PO SCH (10:08)
[2017-02-01] MEDS: ACETAMINOPHEN 325 MG TABLET (FP) PO PRN (11:00)
--- NOTE | 2017-02-01 15:03 | PN ---
[facility] Progress Note (SOAP) Subjective: Diarrhea, Body Aches, H/A, Sweating, Anxious. Objective: PT. A & O X 3, OBSERVED AMBULATING ON UNIT. NO ACUTE DISTRESS. 02/01/17 15:01 Vital Signs Temperature 98.4 F 02/01/17 14:35 Pulse Rate 91 H 02/01/17 14:35 Respiratory Rate 20 02/01/17 14:35 Blood Pressure 125/76 02/01/17 14:35 O2 Sat by Pulse Oximetry (%) Laboratory Tests 01/30/17 01/30/17 01/30/17 06:00 06:00 06:00 WBC 6.6 D RBC 4.72 Hgb 14.0 Hct 42.0 MCV 89.1 MCH 29.7 MCHC 33.3 RDW 14.2 Plt Count 254 D MPV 9.3 Sodium 138 Potassium 3.9 Chloride 105 Carbon Dioxide 25 Anion Gap 8 BUN 15 D Creatinine 1.3 D Creat Clearance w eGFR > 60 Random Glucose 101 Calcium 8.1 L Total Bilirubin 0.5 D AST 38 H D ALT 41 D Alkaline Phosphatase 81 Total Protein 7.2 Albumin 3.5 Urine Color Urine Appearance Urine pH Ur Specific [place] Urine Protein Urine Glucose (UA) Urine Ketones Urine Blood Urine Nitrite Urine Bilirubin Urine Urobilinogen Ur Leukocyte Esterase Urine RBC Urine WBC Urine Bacteria RPR Titer Nonreactive 01/30/17 08:00 WBC RBC Hgb Hct MCV MCH MCHC RDW Plt Count MPV Sodium Potassium Chloride Carbon Dioxide Anion Gap BUN Creatinine Creat Clearance w eGFR Random Glucose Calcium Total Bilirubin AST ALT Alkaline Phosphatase Total Protein Albumin Urine Color Ltyellow Urine Appearance Clear Urine pH 6.0 Ur Specific [place] 1.016 Urine Protein Negative Urine Glucose (UA) Negative Urine Ketones Negative Urine Blood Negative Urine Nitrite Negative Urine Bilirubin Negative Urine Urobilinogen Negative Ur Leukocyte Esterase Trace H Urine RBC 0-1 Urine WBC 2-5 Urine Bacteria Moderate RPR Titer LABS NOTED. Assessment: 02/01/17 15:01 WITHDRAWAL SYMPTOMS. Plan: CONTINUE DETOX. PRN IMMODIUM FOR DIARRHEA. INCREASE DAILY PO FLUID INTAKE. DUE TO CURRENT SEVERITY OF DETOX SYMPTOMS, PATIENT PERMITTED TO REMAIN ON DETOX UNIT UNTIL 02/03/2017, AT WHICH TIME HE WILL PURSUE A REHAB ADMISSION FOR AFTERCARE.
[2017-02-01] MEDS: chlordiazePOXIDE HCL 10 MG CAPSULE PO SCH ×2 (17:38→22:07)
[2017-02-01] MEDS: MAG HYDROX/AL HYDROX/SIMETH 30 ML UNIT-DOSE CUP PO PRN (18:08)
[2017-02-01] MEDS: QUEtiapine FUMARATE 50 MG TABLET PO SCH (22:06)
[2017-02-01] MEDS: THIAMINE HCL 100 MG TABLET (FP) PO SCH (22:07)
[2017-02-01] MEDS: ZOLPIDEM TARTRATE 10 MG TABLET (PARK CARE ONLY) PO PRN (22:07)
[2017-02-01] MEDS: hydrOXYzine PAMOATE 50 MG CAPSULE (FP) PO PRN (23:30)
[2017-02-02] MEDS: chlordiazePOXIDE HCL 10 MG CAPSULE PO SCH ×2 (05:44→10:18)
[2017-02-02] MEDS: BUPRENORPHINE/NALOXONE 8 MG/2 MG FILM PACKET SL SCH ×3 (10:18→17:13)
[2017-02-02] MEDS: RANITIDINE HCL 150 MG TABLET (FP) PO SCH ×2 (10:19→22:03)
[2017-02-02] MEDS: BUDESONIDE/FORMETEROL FUMARATE 80/4.5 mcg INHALER IH SCH ×2 (10:19→22:04)
[2017-02-02] MEDS: NICOTINE 21 MG/24 HOURS TOPICAL PATCH TD SCH (10:19)
[2017-02-02] MEDS: PRENATAL VITAMINS W/ FOLIC ACID TABLET (FP) PO SCH (10:19)
[2017-02-02] MEDS: NICOTINE POLACRILEX 4 MG GUM BC PRN ×3 (10:20→17:22)
[2017-02-02] MEDS: hydrOXYzine PAMOATE 50 MG CAPSULE (FP) PO PRN (13:55)
--- NOTE | 2017-02-02 16:14 | PN ---
[facility] Progress Note (SOAP) Subjective: Sweating, anxious, interrupted sleep Objective: 02/02/17 16:13 Last Vital Signs Temp Pulse Resp BP Pulse Ox 97.0 F L 84 18 110/66 02/02/17 14:52 02/02/17 14:52 02/02/17 14:52 02/02/17 14:52 Laboratory Tests 01/30/17 01/30/17 01/30/17 06:00 06:00 06:00 WBC 6.6 D RBC 4.72 Hgb 14.0 Hct 42.0 MCV 89.1 MCH 29.7 MCHC 33.3 RDW 14.2 Plt Count 254 D MPV 9.3 Sodium 138 Potassium 3.9 Chloride 105 Carbon Dioxide 25 Anion Gap 8 BUN 15 D Creatinine 1.3 D Creat Clearance w eGFR > 60 Random Glucose 101 Calcium 8.1 L Total Bilirubin 0.5 D AST 38 H D ALT 41 D Alkaline Phosphatase 81 Total Protein 7.2 Albumin 3.5 Urine Color Urine Appearance Urine pH Ur Specific [place] Urine Protein Urine Glucose (UA) Urine Ketones Urine Blood Urine Nitrite Urine Bilirubin Urine Urobilinogen Ur Leukocyte Esterase Urine RBC Urine WBC Urine Bacteria RPR Titer Nonreactive 01/30/17 08:00 WBC RBC Hgb Hct MCV MCH MCHC RDW Plt Count MPV Sodium Potassium Chloride Carbon Dioxide Anion Gap BUN Creatinine Creat Clearance w eGFR Random Glucose Calcium Total Bilirubin AST ALT Alkaline Phosphatase Total Protein Albumin Urine Color Ltyellow Urine Appearance Clear Urine pH 6.0 Ur Specific [place] 1.016 Urine Protein Negative Urine Glucose (UA) Negative Urine Ketones Negative Urine Blood Negative Urine Nitrite Negative Urine Bilirubin Negative Urine Urobilinogen Negative Ur Leukocyte Esterase Trace H Urine RBC 0-1 Urine WBC 2-5 Urine Bacteria Moderate RPR Titer Labs noted Assessment: 02/02/17 16:13 Withdrawal symptoms Plan: Continue detox Encouraged to drink lots of water
[2017-02-02] MEDS: ACETAMINOPHEN 325 MG TABLET (FP) PO PRN (17:22)
[2017-02-02] MEDS ORDERED: QUEtiapine FUMARATE 25 MG TABLET (FP) ONE (21:16)
[2017-02-02] MEDS: ZOLPIDEM TARTRATE 10 MG TABLET (PARK CARE ONLY) PO PRN (21:58)
[2017-02-02] MEDS: THIAMINE HCL 100 MG TABLET (FP) PO SCH (22:02)
[2017-02-02] MEDS: QUEtiapine FUMARATE 50 MG TABLET PO SCH (22:05)
[2017-02-02] MEDS: MAG HYDROX/AL HYDROX/SIMETH 30 ML UNIT-DOSE CUP PO PRN (23:38)
[2017-02-03] MEDS ORDERED: DIPHENOXYLATE 2.5/ATROPINE.025 1 COMBO TABLET PO ONE (08:51)
[2017-02-03 09:21] VITALS: BP 126/67; PULSE 87; TEMP 97.4
--- NOTE | 2017-02-03 09:50 | DS ---
[facility] Detox Discharge Summary Admission Date: 01/29/17 Discharge Date: 02/03/17 - History Present History: Alcohol Dependence, Cocaine Dependence, MMTP (suboxone maintenance) Additional Comments: DETOX COMPLETED. ALERT O X 3. NAD. PT HAS OWN PCP FOR MEDICAL MANAGEMENT OF COMORBID CONDITIONS AND HAS OWN MEDS AT HOME. Pertinent Past History: HIV+ - Physical Exam Results Vital Signs: Vital Signs Temperature 97.4 F L 02/03/17 09:21 Pulse Rate 87 02/03/17 09:21 Respiratory Rate 18 02/03/17 09:21 Blood Pressure 126/67 02/03/17 09:21 O2 Sat by Pulse Oximetry (%) Pertinent Admission Physical Exam Findings: WITHDRAWAL SX Laboratory Last Values WBC 6.6 K/mm3 (4.0-10.0) D 01/30/17 06:00 RBC 4.72 M/mm3 (4.00-5.60) 01/30/17 06:00 Hgb 14.0 GM/dL (11.7-16.9) 01/30/17 06:00 Hct 42.0 % (35.4-49) 01/30/17 06:00 MCV 89.1 fl (80-96) 01/30/17 06:00 MCH 29.7 pg (25.7-33.7) 01/30/17 06:00 MCHC 33.3 g/dl (32.0-35.9) 01/30/17 06:00 RDW 14.2 % (11.9-15.9) 01/30/17 06:00 Plt Count 254 K/MM3 (134-434) D 01/30/17 06:00 MPV 9.3 fl (7.5-11.1) 01/30/17 06:00 Sodium 138 mmol/L (136-145) 01/30/17 06:00 Potassium 3.9 mmol/L (3.5-5.1) 01/30/17 06:00 Chloride 105 mmol/L (98-107) 01/30/17 06:00 Carbon Dioxide 25 mmol/L (21-32) 01/30/17 06:00 Anion Gap 8 (8-16) 01/30/17 06:00 BUN 15 mg/dL (7-18) D 01/30/17 06:00 Creatinine 1.3 mg/dL (0.7-1.3) D 01/30/17 06:00 Creat Clearance w eGFR > 60 (>60) 01/30/17 06:00 Random Glucose 101 mg/dL (74-106) 01/30/17 06:00 Calcium 8.1 mg/dL (8.5-10.1) L 01/30/17 06:00 Total Bilirubin 0.5 mg/dL (0.2-1.0) D 01/30/17 06:00 AST 38 U/L (15-37) H D 01/30/17 06:00 ALT 41 U/L (12-78) D 01/30/17 06:00 Alkaline Phosphatase 81 U/L (45-117) 01/30/17 06:00 Total Protein 7.2 g/dl (6.4-8.2) 01/30/17 06:00 Albumin 3.5 g/dl (3.4-5.0) 01/30/17 06:00 Urine Color Ltyellow 01/30/17 08:00 Urine Appearance Clear 01/30/17 08:00 Urine pH 6.0 (5.0-8.0) 01/30/17 08:00 Ur Specific [place] 1.016 (1.001-1.035) 01/30/17 08:00 Urine Protein Negative (NEGATIVE) 01/30/17 08:00 Urine Glucose (UA) Negative (NEGATIVE) 01/30/17 08:00 Urine Ketones Negative (NEGATIVE) 01/30/17 08:00 Urine Blood Negative (NEGATIVE) 01/30/17 08:00 Urine Nitrite Negative (NEGATIVE) 01/30/17 08:00 Urine Bilirubin Negative (NEGATIVE) 01/30/17 08:00 Urine Urobilinogen Negative mg/dL (0.2-1.0) 01/30/17 08:00 Ur Leukocyte Esterase Trace (NEGATIVE) H 01/30/17 08:00 Urine RBC 0-1 /hpf (0-3) 01/30/17 08:00 Urine WBC 2-5 (0-2) 01/30/17 08:00 Urine Bacteria Moderate /hpf (NEGATIVE) 01/30/17 08:00 RPR Titer Nonreactive (NONREACTIVE) 01/30/17 06:00 - Treatment Hospital Course: Detox Protocol Followed, Detoxed Safely, Responded well, Discharged Condition Good, Rehab Referral Accepted Patient has Accepted a Rehab Referral to: [facility] - Medication Discharge Medications: Ambulatory Orders Salmeterol/Fluticasone [Advair 250Mcg/50Mcg -] 1 inh PO BID 10/24/14 Albuterol Sulfate Inhaler - [Ventolin HFA Inhaler -] 2 inh PO Q4H PRN #1 canister 10/31/14 Zolpidem Tartrate [Ambien] 10 mg PO HS 10/26/16 Emtricitab/Rilpiviri/Tenof Ala [Odefsey Tablet] 1 each PO DAILY 10/31/16 Buprenorphine HCl/Naloxone HCl [Suboxone 8 mg-2 mg Sl Tablets] 8 mg SL TID #30 packet MDD 3 11/27/16 Quetiapine Fumarate [Seroquel -] 50 mg PO HS #30 tablet 11/28/16 Quetiapine Fumarate [Seroquel] 100 mg PO HS #30 tablet 01/30/17 - Diagnosis (1) Alcohol dependence with uncomplicated withdrawal Current Visit: Yes Status: Acute (2) Cocaine dependence Current Visit: Yes Status: Acute Qualifiers: Substance use status: uncomplicated Qualified Code(s): F14.20 - Cocaine dependence, uncomplicated (3) Encounter for monitoring Suboxone maintenance therapy Current Visit: Yes Status: Chronic (4) HIV (human immunodeficiency virus infection) Current Visit: Yes Status: Chronic (5) Nicotine dependence Current Visit: Yes Status: Acute Qualifiers: Nicotine product type: cigarettes Substance use status: in withdrawal Qualified Code(s): F17.213 - Nicotine dependence, cigarettes, with withdrawal (6) Asthma Current Visit: Yes Status: Chronic Qualifiers: Asthma severity: mild Asthma persistence: intermittent Asthma complication type: uncomplicated Qualified Code(s): J45.20 - Mild intermittent asthma, uncomplicated - AMA Did Patient Leave Against Medical Advice: No
[2017-02-03] MEDS: PRENATAL VITAMINS W/ FOLIC ACID TABLET (FP) PO SCH (09:52)
[2017-02-03] MEDS: RANITIDINE HCL 150 MG TABLET (FP) PO SCH (09:52)
[2017-02-03] MEDS: BUDESONIDE/FORMETEROL FUMARATE 80/4.5 mcg INHALER IH SCH (09:52)
[2017-02-03] MEDS: NICOTINE 21 MG/24 HOURS TOPICAL PATCH TD SCH (09:53)
[2017-02-03] MEDS: NICOTINE POLACRILEX 4 MG GUM BC PRN (09:53)
[2017-02-03] MEDS: BUPRENORPHINE/NALOXONE 8 MG/2 MG FILM PACKET SL SCH (09:53)
== END 2017-02-03 10:55 | disposition home or self-care (01) | DRG 895 ==
LOC: YASAS 11:10 → Y3N 15:46
PROVIDERS: ADMIT Internal Medicine; ATTEND Internal Medicine
PROC: HZ42ZZZ Group Counseling for Substance Abuse Treatment, Cognitive-Behavioral (ICD-10-PCS; principal; 2017-01-29)
DX: F19.230 Other psychoactive substance dependence with withdrawal, uncomplicated (principal); F11.20 Opioid dependence, uncomplicated; F14.20 Cocaine dependence, uncomplicated; F33.1 Major depressive disorder, recurrent, moderate; F10.230 Alcohol dependence with withdrawal, uncomplicated; F17.213 Nicotine dependence, cigarettes, with withdrawal; F25.9 Schizoaffective disorder, unspecified; F31.9 Bipolar disorder, unspecified; F43.10 Post-traumatic stress disorder, unspecified; J45.20 Mild intermittent asthma, uncomplicated; Z21 Asymptomatic human immunodeficiency virus [HIV] infection status
CPT/HCPCS: 36415; 80053; 81003; 81015; 85027; 86593; 93005; 93010

== ENCOUNTER 2017-04-21 08:40 | Inpatient (IN) | payer OTHER ==
[2017-04-21 10:09] VITALS: BMI 29.4
--- NOTE | 2017-04-21 11:33 | HP ---
COWS - Scale Resting Pulse: 1= NM 81-100 Sweatin=Flushed/Facial Moisture Restless Observation: 1= Difficult to Sit Still Pupil Size: 0= Normal to Room Light Bone or Joint Aches: 2= Severe Diffuse Aches Runny Nose/ Eye Tearin= Runny Nose/Eyes GI Upset > 30mins: 2= Nausea/Diarrhea Tremor Observation: 2= Slight Tremor Visible Yawning Observation: 2= >3x During Session Anxiety or Irritability: 2=Irritable/Anxious Goose Flesh Skin: 3=Piloerection COWS Score: 19 CIWA Score - CIWA Score Nausea/Vomitin-No Nausea/No Vomiting Muscle Tremors: 4-Moderate,w/Arms Extend Anxiety: 4-Mod. Anxious/Guarded Agitation: 4-Moderately Restless Paroxysmal Sweats: 3 Orientation: 0-Oriented Tacttile Disturbances: 0-None Auditory Disturbances: 0-None Visual Disturbances: 0-None Headache: 0-None Present CIWA-Ar Total Score: 15 Admission ROS S - HPI Chief Complaint: I want to get cleaned. Allergies/Adverse Reactions: Allergies Allergy/AdvReac Type Severity Reaction Status Date / Time Fish Containing Products Allergy Intermediate Swelling Verified 04/21/17 11:12 No Known Drug Allergies Allergy Verified 04/21/17 11:12 History of Present Illness: pt is a 37yr old male with a history of alcohol and heroin dependence seeking detox for treatment. Exam Limitations: No Limitations - Ebola screening Have you traveled outside of the country in the last 21 days: No Have you had contact with anyone from an Ebola affected area: No Have you been sick,other than usual withdrawal symptoms: No Do you have a fever: No - Review of Systems Constitutional: Chills, Diaphoresis, Loss of Appetite, Night Sweats, Changes in sleep, Unintentional Wgt. Loss EENT: reports: Tearing, Nose Congestion Respiratory: reports: No Symptoms reported Cardiac: reports: No Symptoms Reported GI: reports: Diarrhea, Poor Appetite, Poor Fluid Intake : reports: No Symptoms Reported Musculoskeletal: reports: Back Pain Integumentary: reports: Flushing, Sweating Neuro: reports: Tingling, Tremors Endocrine: reports: Excessive Sweating, Flushing, Intolerance to Cold, Intolerance to Heat Hematology: reports: No Symptoms Reported Psychiatric: reports: Judgement Intact, Mood/Affect Appropiate, Orientated x3, Agitated, Anxious Other Systems: Reviewed and Negative Patient History - Patient Medical History Hx Anemia: No Hx Asthma: Yes Hx Chronic Obstructive Pulmonary Disease (COPD): No Hx Cancer: No Hx Cardiac Disorders: No Hx Congestive Heart Failure: No Hx Hypertension: No Hx Hypercholesterolemia: No Hx Pacemaker: No HX Cerebrovascular Accident: No Hx Seizures: No Hx Dementia: No Hx Diabetes: No Hx Gastrointestinal Disorders: No Hx Liver Disease: No Hx Genitourinary Disorders: No Hx Sexually Transmitted Disorders: No Hx Renal Disease (ESRD): No Hx Thyroid Disease: No Hx Human Immunodeficiency Virus (HIV): Yes (since 2006 , vl <20; cd4 = 755 takes Odefsy but didnt bring in) Hx Hepatitis C: No (negative) Hx Depression: Yes Hx Suicide Attempt: No Hx Bipolar Disorder: Yes (hospitalized a year ago [place]x [place]) Hx Schizophrenia: No - Patient Surgical History Past Surgical History: No Hx Neurologic Surgery: No Hx Cataract Extraction: No Hx Cardiac Surgery: No Hx Lung Surgery: No Hx Breast Surgery: No Hx Breast Biopsy: No Hx Abdominal Surgery: No Hx Appendectomy: No Hx Cholecystectomy: No Hx Genitourinary Surgery: No Hx Section: No Hx Orthopedic Surgery: No Anesthesia Reaction: No - PPD History Previous Implant?: Yes Documented Results: Negative w/proof Implanted On Prior [facility] Admission?: Yes Date: 10/28/16 Results: 0 mm PPD to be Administered?: No - Reproductive History Patient is a Female of Child Bearing Age (11 -55 yrs old): No - Smoking Cessation Smoking history: Current every day smoker Have you smoked in the past 12 months: Yes Aproximately how many cigarettes per day: 20 Cigars Per Day: 0 Hx Chewing Tobacco Use: No Initiated information on smoking cessation: Yes 'Breaking Loose' booklet given: 04/21/17 - Substance & Tx. History Hx Alcohol Use: Yes Hx Substance Use: Yes Substance Use Type: Alcohol, Heroin Hx Substance Use Treatment: Yes (last detox 01/2017) - Substances Abused Heroin Route: Inhalation Frequency: Daily Amount used: 8 bags Age of first use: 14 Date of Last Use: 04/21/17 Cocaine Route: Inhalation Frequency: Daily Amount used: $150 Age of first use: 20 Date of Last Use: 04/19/17 Alcohol-beer/vodka Route: Oral Frequency: Daily Amount used: 2-6 pks./2 pts. Age of first use: 17 Date of Last Use: 04/20/17 Family Disease History - Family Disease History Family Disease History: Other: Father (living,etoh), Mother (, overdose) , Brother (two - living - depression), Sister (three) Admission Physical Exam [facility] - Vital Signs Vital Signs: Vital Signs - 24 hr 04/21/17 10:05 Temperature 97.1 F L Pulse Rate 83 Respiratory 20 Rate Blood Pressure 148/72 - Physical General Appearance: Yes: Appropriately Dressed, Moderate Distress, Tremorous, Irritable, Sweating, Anxious HEENTM: Yes: Hearing grossly Normal, Normal Voice Respiratory: Yes: Lungs Clear, Normal Breath Sounds, No Respiratory Distress Neck: Yes: No masses,lesions,Nodules Breast: Yes: Within Normal Limits Cardiology: Yes: Regular Rhythm, Regular Rate, S1, S2 Abdominal: Yes: Normal Bowel Sounds, Non Tender, Soft Genitourinary: Yes: Within Normal Limits Back: Yes: Normal Inspection Musculoskeletal: Yes: full range of Motion, Back pain Extremities: Yes: Normal Capillary Refill, Normal Inspection, Non-Tender, Tremors Neurological: Yes: Fully Oriented, Alert, Normal Response Integumentary: Yes: Normal Color, Diaphoresis Lymphatic: Yes: Within Normal Limits - Diagnostic (1) Opioid dependence with withdrawal Current Visit: Yes Status: Chronic (2) Alcohol dependence with uncomplicated withdrawal Current Visit: Yes Status: Chronic (3) Cocaine dependence Current Visit: Yes Status: Chronic Qualifiers: Substance use status: uncomplicated Qualified Code(s): F14.20 - Cocaine dependence, uncomplicated (4) Nicotine dependence Current Visit: Yes Status: Acute Qualifiers: Nicotine product type: cigarettes Substance use status: uncomplicated Qualified Code(s): F17.210 - Nicotine dependence, cigarettes, uncomplicated (5) Asthma Current Visit: Yes Status: Chronic Qualifiers: Asthma severity: mild Asthma persistence: intermittent Asthma complication type: uncomplicated Qualified Code(s): J45.20 - Mild intermittent asthma, uncomplicated (6) HIV (human immunodeficiency virus infection) Current Visit: Yes Status: Chronic Cleared for Admission [facility] - Detox or Rehab [facility] Level of Care: Medically Managed Detox Regimen/Protocol: Methadone/Librium S Breath Alcohol Content Breath Alcohol Content: 0 Urine Drug Screen - Results Drug Screen Negative: No Urine Drug Screen Results: CARLA-Cocaine, OPI-Opiates
[2017-04-21] MEDS ORDERED: MAGNESIUM CITRATE 300 ML BOTTLE PO PRN (11:34)
[2017-04-21] MEDS ORDERED: P-EPHED 60MG/TRIPROLIDI 2.5MG TABLET PO PRN (11:34)
[2017-04-21] MEDS ORDERED: MENTHOL/PHENOL 1 EACH UD MM PRN (11:34)
[2017-04-21] MEDS ORDERED: MAG HYDROX/AL HYDROX/SIMETH 30 ML UNIT-DOSE CUP PO PRN (11:34)
[2017-04-21] MEDS ORDERED: IBUPROFEN 400 MG TABLET (FP) PO PRN (11:34)
[2017-04-21] MEDS ORDERED: ACETAMINOPHEN 325 MG TABLET (FP) PO PRN (11:34)
[2017-04-21] MEDS ORDERED: MAGNESIUM HYDROX 2400MG/30ML ORAL SUSPENSION 30 ML CUP PO PRN (11:34)
[2017-04-21] MEDS ORDERED: hydrOXYzine PAMOATE 50 MG CAPSULE (FP) PO PRN (11:34)
[2017-04-21] MEDS ORDERED: guaiFENesin/D-METHORPHAN HB 10 ML UNIT-DOSE CUPS PO PRN (11:34)
[2017-04-21] MEDS ORDERED: chlordiazePOXIDE HCL 25 MG CAPSULE PO ONE (12:20)
[2017-04-21] MEDS ORDERED: METHADONE HCL 10 MG TABLET (FOR DETOX USE ONLY) PO ONE ×2 (12:21→23:00)
--- NOTE | 2017-04-21 13:21 | CONSULT ---
[facility] Psychiatric Consult - Data Date of interview: 04/21/17 Admission source: [facility] Identifying data: This is 37 years old male with no psychiatric hospitalization history intoxicated with: Alcohol, Cocaine, Heropin and Nicotine Substance Abuse History: - Smoking Cessation. Smoking history: Current every day smoker. Have you smoked in the past 12 months: Yes. Aproximately how many cigarettes per day: 20. Cigars Per Day: 0. Hx Chewing Tobacco Use: No. Initiated information on smoking cessation: Yes. 'Breaking Loose' booklet given : 04/21/17. - Substance & Tx. History. Hx Alcohol Use: Yes. Hx Substance Use : Yes. Substance Use Type: Alcohol, Heroin. Hx Substance Use Treatment: Yes ( last detox 01/2017). - Substances Abused. Heroin. Route: Inhalation. Frequency: Daily. Amount used: 8 bags. Age of first use: 14. Date of Last Use : 04/21/17. Cocaine. Route: Inhalation. Frequency: Daily. Amount used: $ 150. Age of first use: 20. Date of Last Use: 04/19/17. Alcohol-beer/ vodka. Route: Oral. Frequency: Daily. Amount used: 2-6 pks./2 pts. Age of first use: 17. Date of Last Use: 04/20/17 Medical History: Asthma, HIV+, Psychiatric History: PATIENT REPORTS ANXIETY ABD [place], REPORTS TAKING PRIOR TO ADMISSION: AMBIEN 10MG PO QHS. Seroquel 50mg po qhs. As per computer patient carries Bipolar disorder, Schizoaffective disorder, MDD, minimizing past psychiatric history, denies suicidal history as well Physical/Sexual Abuse/Trauma History: Denies Additional Comment: Ambien 10MG PO QHS. Seroquel 50mg po qhs Mental Status Exam - Mental Status Exam Alert and Oriented to: Person Cognitive Function: Fair Patient Appearance: Unkempt Mood: Sad Affect: Flat Patient Behavior: Sedated Speech Pattern: Delayed Voice Loudness: Mildly Soft/Quiet Thought Process: Circumstantial, Goal Oriented Thought Disorder: Being Controlled Hallucinations: Denies Suicidal Ideation: Denies Homicidal Ideation: Denies Insight/Judgement: Fair Sleep: Difficulty falling asleep Appetite: Weight gain Muscle strength/Tone: Mild Hypotonicity Gait/Station: Shuffling Additional Comments: AMBIEN 10MG PO QHS. Seroquel 50mg po qhs Psychiatric Findings - Problem List ([place] 1, 2,3) (1) Nicotine dependence Current Visit: Yes Status: Acute Qualifiers: Nicotine product type: cigarettes Substance use status: uncomplicated Qualified Code(s): F17.210 - Nicotine dependence, cigarettes, uncomplicated (2) Alcohol dependence with uncomplicated withdrawal Current Visit: Yes Status: Chronic (3) Cocaine dependence Current Visit: Yes Status: Chronic Qualifiers: Substance use status: uncomplicated Qualified Code(s): F14.20 - Cocaine dependence, uncomplicated (4) Opioid dependence with withdrawal Current Visit: Yes Status: Chronic (5) Non compliance with medical treatment Current Visit: No Status: Acute (6) Opioid dependence on agonist therapy Current Visit: No Status: Acute (7) Bipolar disorder Current Visit: No Status: Chronic (8) Major depressive disorder, recurrent episode, moderate Current Visit: No Status: Chronic (9) Posttraumatic stress disorder Current Visit: No Status: Chronic (10) Schizoaffective disorder Current Visit: No Status: Chronic - Initial Treatment Plan Initial Treatment Plan: Ambien 10MG PO QHS. Seroquel 50mg po qhs
--- NOTE | 2017-04-21 17:42 | EKG ---
Test Reason : Blood Pressure : / mmHG Vent. Rate : 077 BPM Atrial Rate : 077 BPM P-R Int : 202 ms QRS Dur : 098 ms QT Int : 386 ms P-R-T Axes : 052 078 063 degrees QTc Int : 436 ms NORMAL SINUS RHYTHM MINIMAL VOLTAGE CRITERIA FOR LVH, MAY BE NORMAL VARIANT ST ELEVATION, CONSIDER EARLY REPOLARIZATION NONSPECIFIC ST ABNORMALITY ABNORMAL ECG WHEN COMPARED WITH ECG OF 29-JAN-2017 17:51, LIKELY NO SIGNIFICANT CHANGES Confirmed by CHELY AVILEZ MD ([id number]) on 04/21/2017 5:41:55 PM Referred By: Confirmed By:CHELY AVILEZ MD
[2017-04-21] MEDS: chlordiazePOXIDE HCL 25 MG CAPSULE PO SCH ×2 (18:05→22:22)
[2017-04-21 18:26] LABS: URINE APPEARANCE CLEAR; URINE BILIRUBIN NEGATIVE (NEGATIVE); URINE BLOOD NEGATIVE (NEGATIVE); URINE COLOR LTYELLOW; URINE GLUCOSE (UA) NEGATIVE (NEGATIVE); URINE KETONE NEGATIVE (NEGATIVE); URINE LEUK ESTERASE NEGATIVE (NEGATIVE); URINE NITRITE NEGATIVE (NEGATIVE); URINE PROTEIN NEGATIVE (NEGATIVE)
[2017-04-21] MEDS: ZOLPIDEM TARTRATE 10 MG TABLET (PARK CARE ONLY) PO PRN (22:22)
[2017-04-21] MEDS: THIAMINE HCL 100 MG TABLET (FP) PO SCH (22:22)
[2017-04-21] MEDS: QUEtiapine FUMARATE 50 MG TABLET PO SCH (22:22)
[2017-04-22] MEDS: chlordiazePOXIDE HCL 25 MG CAPSULE PO SCH ×4 (05:52→22:31)
[2017-04-22] MEDS: NICOTINE POLACRILEX 4 MG GUM BUC PRN (05:53)
[2017-04-22] MEDS ORDERED: METHADONE HCL 10 MG TABLET (FOR DETOX USE ONLY) PO SCH (10:00)
[2017-04-22] MEDS ORDERED: ALBUTEROL SO4 18 GM HFA INHALER IH PRN (10:11)
--- NOTE | 2017-04-22 10:18 | PN ---
S CIWA - CIWA Score Nausea/Vomitin Muscle Tremors: 3 Anxiety: 3 Agitation: 3 Paroxysmal Sweats: 1-Minimal Palms Moist Orientation: 0-Oriented Tacttile Disturbances: 1-Very Mild Itch/Numbness Auditory Disturbances: 1-Very Mild Visual Disturbances: 0-None Headache: 2-Mild CIWA-Ar Total Score: 17 BHS COWS - Scale Resting Pulse: 0= AR 80 or Below Sweatin= Chills/Flushing Restless Observation: 3= Extraneous Movement Pupil Size: 1= Pupils >than Normal Bone or Joint Aches: 2= Severe Diffuse Aches Runny Nose/ Eye Tearin= Runny Nose/Eyes GI Upset > 30mins: 2= Nausea/Diarrhea Tremor Observation of Outstretched Hands: 2= Slight Tremor Visible Yawning Observation: 1= 1-2x During Session Anxiety or Irritability: 2=Irritable/Anxious Goose Flesh Skin: 0=Smooth Skin COWS Score: 16 S Progress Note (SOAP) Subjective: ALERT,IRRITABLE,ANXIOUS,INTERRUPTED SLEEP,TREMOR,PAIN IN THE BODY AND BACK Objective: 04/22/17 10:15 Vital Signs Temperature 98.1 F 04/22/17 06:00 Pulse Rate 68 04/22/17 06:00 Respiratory Rate 18 04/22/17 06:00 Blood Pressure 131/82 04/22/17 06:00 O2 Sat by Pulse Oximetry (%) EKG NSR NO CHEST PAIN,NO SOB,NO DIZZINESS Laboratory Last Values Urine Color Ltyellow 04/21/17 16:00 Urine Appearance Clear 04/21/17 16:00 Urine pH 7.0 (5.0-8.0) 04/21/17 16:00 Ur Specific [place] 1.005 (1.001-1.035) 04/21/17 16:00 Urine Protein Negative (NEGATIVE) 04/21/17 16:00 Urine Glucose (UA) Negative (NEGATIVE) 04/21/17 16:00 Urine Ketones Negative (NEGATIVE) 04/21/17 16:00 Urine Blood Negative (NEGATIVE) 04/21/17 16:00 Urine Nitrite Negative (NEGATIVE) 04/21/17 16:00 Urine Bilirubin Negative (NEGATIVE) 04/21/17 16:00 Urine Urobilinogen 2.0 mg/dL (0.2-1.0) 04/21/17 16:00 Ur Leukocyte Esterase Negative (NEGATIVE) 04/21/17 16:00 LABS PENDING Assessment: 04/22/17 10:16 WITHDRAWAL SYMPTOM Plan: CONTINUE DETOX,PATIENT STATED HE HAS BEEN TAKING COMPLERA PO DAILY FOR HIV
[2017-04-22] MEDS ORDERED: EMTRICITAB/RILPIVIRINE/TENOFOV 1 EACH TABLET PO ONE (10:20)
[2017-04-22 10:26] LABS: HEMOGLOBIN 14.4 GM/dL (11.7-16.9); MCH 29.5 pg (25.7-33.7); MCHC 32.7 g/dl (32.0-35.9); MEAN CELL VOLUME 90.2 fl (80-96); MEAN PLT VOLUME 9.7 fl (7.5-11.1); PLATELET COUNT 235 K/MM3 (134-434); RBC 4.88 M/mm3 (4.00-5.60); RDW 14.4 % (11.9-15.9); WHITE BLOOD COUNT 5.8 K/mm3 (4.0-10.0)
[2017-04-22 10:32] LABS: CHLORIDE 104 mmol/L (98-107); POTASSIUM 3.5 mmol/L (3.5-5.1); SODIUM 139 mmol/L (136-145)
[2017-04-22] MEDS: PRENATAL VITAMINS W/ FOLIC ACID TABLET (FP) PO SCH (10:47)
[2017-04-22 10:49] LABS: ALBUMIN 3.7 g/dl (3.4-5.0); ALK PHOS 78 U/L (45-117); ANION GAP 8 (8-16); BILIRUBIN,TOTAL 0.4 mg/dL (0.2-1.0); BLOOD UREA NITROGEN 8 mg/dL (7-18); CALCIUM 8.7 mg/dL (8.5-10.1); CO2 27 mmol/L (21-32); CREATININE 0.9 mg/dL (0.7-1.3); GLUCOSE,RANDOM 102 mg/dL (74-106); SGOT/AST 142 U/L (15-37); SGPT/ALT 130 U/L (12-78); TOT PROT 7.3 g/dl (6.4-8.2)
--- NOTE | 2017-04-22 12:38 | PN ---
S Progress Note Note: Psychiatric Nurse Practitioner: Social Service Technician approached patient bedside after requesting a psychiatric reconsultation. Pt. refused. Stated to fiction and nonfiction writer prose, "i'm good". Will continue to monitor.
[2017-04-22] MEDS: chlordiazePOXIDE HCL 25 MG CAPSULE PO PRN (15:37)
[2017-04-22] MEDS: LOPERAMIDE HCL 2 MG CAPSULE PO PRN (17:32)
[2017-04-22] MEDS: ZOLPIDEM TARTRATE 10 MG TABLET (PARK CARE ONLY) PO PRN (22:31)
[2017-04-22] MEDS: QUEtiapine FUMARATE 50 MG TABLET PO SCH (22:33)
[2017-04-22] MEDS: BUDESONIDE/FORMETEROL FUMARATE 80/4.5 mcg INHALER IH SCH (22:33)
[2017-04-22] MEDS: THIAMINE HCL 100 MG TABLET (FP) PO SCH (22:34)
[2017-04-23] MEDS: chlordiazePOXIDE HCL 25 MG CAPSULE PO SCH ×2 (05:52→12:00)
[2017-04-23] MEDS: NICOTINE POLACRILEX 4 MG GUM BUC PRN (05:55)
[2017-04-23] MEDS ORDERED: EMTRICITAB/RILPIVIRINE/TENOFOV 1 EACH TABLET PO SCH (08:00)
[2017-04-23] MEDS: LOPERAMIDE HCL 2 MG CAPSULE PO PRN (09:40)
[2017-04-23] MEDS ORDERED: METHADONE HCL 5 MG TABLET (FOR DETOX USE ONLY) PO SCH (10:00)
[2017-04-23] MEDS: BUDESONIDE/FORMETEROL FUMARATE 80/4.5 mcg INHALER IH SCH (10:55)
[2017-04-23] MEDS: PRENATAL VITAMINS W/ FOLIC ACID TABLET (FP) PO SCH (10:55)
[2017-04-23] MEDS ORDERED: ONDANSETRON *ODT* 4 MG TABLET SL PRN (10:59)
--- NOTE | 2017-04-23 11:05 | PN ---
S CIWA - CIWA Score Nausea/Vomitin Muscle Tremors: 3 Anxiety: 3 Agitation: 2 Paroxysmal Sweats: 1-Minimal Palms Moist Orientation: 0-Oriented Tacttile Disturbances: 1-Very Mild Itch/Numbness Auditory Disturbances: 1-Very Mild Visual Disturbances: 1-Very Mild Sensitivity Headache: 2-Mild CIWA-Ar Total Score: 17 BHS COWS - Scale Resting Pulse: 0= [place] 80 or Below Sweatin= Chills/Flushing Restless Observation: 3= Extraneous Movement Pupil Size: 1= Pupils >than Normal Bone or Joint Aches: 2= Severe Diffuse Aches Runny Nose/ Eye Tearin= Runny Nose/Eyes GI Upset > 30mins: 2= Nausea/Diarrhea Tremor Observation of Outstretched Hands: 2= Slight Tremor Visible Yawning Observation: 1= 1-2x During Session Anxiety or Irritability: 2=Irritable/Anxious Goose Flesh Skin: 0=Smooth Skin COWS Score: 16 S Progress Note (SOAP) Subjective: ALERT,IRRITABLE,ANXIOUS,INTERRUPTED SLEEP,TREMOR,NAUSEA,PAIN IN THE BODY AND BACK Objective: 04/23/17 11:03 Vital Signs Temperature 98 F 04/23/17 09:57 Pulse Rate 76 04/23/17 09:57 Respiratory Rate 18 04/23/17 09:57 Blood Pressure 121/74 04/23/17 09:57 O2 Sat by Pulse Oximetry (%) Laboratory Last Values WBC 5.8 K/mm3 (4.0-10.0) 04/22/17 05:50 RBC 4.88 M/mm3 (4.00-5.60) 04/22/17 05:50 Hgb 14.4 GM/dL (11.7-16.9) 04/22/17 05:50 Hct 44.0 % (35.4-49) 04/22/17 05:50 MCV 90.2 fl (80-96) 04/22/17 05:50 MCH 29.5 pg (25.7-33.7) 04/22/17 05:50 MCHC 32.7 g/dl (32.0-35.9) 04/22/17 05:50 RDW 14.4 % (11.9-15.9) 04/22/17 05:50 Plt Count 235 K/MM3 (134-434) 04/22/17 05:50 MPV 9.7 fl (7.5-11.1) 04/22/17 05:50 Sodium 139 mmol/L (136-145) 04/22/17 05:50 Potassium 3.5 mmol/L (3.5-5.1) 04/22/17 05:50 Chloride 104 mmol/L (98-107) 04/22/17 05:50 Carbon Dioxide 27 mmol/L (21-32) 04/22/17 05:50 Anion Gap 8 (8-16) 04/22/17 05:50 BUN 8 mg/dL (7-18) D 04/22/17 05:50 Creatinine 0.9 mg/dL (0.7-1.3) D 04/22/17 05:50 Creat Clearance w eGFR > 60 (>60) 04/22/17 05:50 Random Glucose 102 mg/dL (74-106) 04/22/17 05:50 Calcium 8.7 mg/dL (8.5-10.1) 04/22/17 05:50 Total Bilirubin 0.4 mg/dL (0.2-1.0) 04/22/17 05:50 AST 142 U/L (15-37) H D 04/22/17 05:50 ALT 130 U/L (12-78) H D 04/22/17 05:50 Alkaline Phosphatase 78 U/L (45-117) 04/22/17 05:50 Total Protein 7.3 g/dl (6.4-8.2) 04/22/17 05:50 Albumin 3.7 g/dl (3.4-5.0) 04/22/17 05:50 Urine Color Ltyellow 04/21/17 16:00 Urine Appearance Clear 04/21/17 16:00 Urine pH 7.0 (5.0-8.0) 04/21/17 16:00 Ur Specific [place] 1.005 (1.001-1.035) 04/21/17 16:00 Urine Protein Negative (NEGATIVE) 04/21/17 16:00 Urine Glucose (UA) Negative (NEGATIVE) 04/21/17 16:00 Urine Ketones Negative (NEGATIVE) 04/21/17 16:00 Urine Blood Negative (NEGATIVE) 04/21/17 16:00 Urine Nitrite Negative (NEGATIVE) 04/21/17 16:00 Urine Bilirubin Negative (NEGATIVE) 04/21/17 16:00 Urine Urobilinogen 2.0 mg/dL (0.2-1.0) 04/21/17 16:00 Ur Leukocyte Esterase Negative (NEGATIVE) 04/21/17 16:00 RPR Titer Nonreactive (NONREACTIVE) 04/22/17 05:50 Assessment: 04/23/17 11:04 WITHDRAWAL SYMPTOM Plan: CONTINUE DETOX,AT,AST,INR IN AM
--- NOTE | 2017-04-23 11:10 | PN ---
BHS Progress Note Note: PATIENT WANTED TO CONTINUE WITH METHADONE DETOX
[2017-04-23] MEDS: chlordiazePOXIDE HCL 25 MG CAPSULE PO PRN (13:44)
[2017-04-23 15:05] VITALS: BP 115/56; PULSE 90; TEMP 98.2
--- NOTE | 2017-04-23 15:43 | PN ---
S Progress Note Note: patient did not want to complete treatment,seen by counselor,signed release ama, did not want to wait
[2017-04-23] MEDS ORDERED: RANITIDINE HCL 150 MG TABLET (FP) PO ONE (15:44)
[2017-04-23] MEDS ORDERED: chlordiazePOXIDE 5 MG CAPSULE PO SCH (17:00)
[2017-04-23] MEDS ORDERED: RANITIDINE HCL 150 MG TABLET (FP) PO SCH ×3 (20:00→22:00)
[2017-04-24] MEDS ORDERED: chlordiazePOXIDE HCL 10 MG CAPSULE PO SCH (17:00)
[2017-04-25] MEDS ORDERED: METHADONE HCL 10 MG TABLET (FOR DETOX USE ONLY) PO SCH (10:00)
[2017-04-26] MEDS ORDERED: METHADONE HCL 5 MG TABLET (FOR DETOX USE ONLY) PO SCH (06:00)
== END 2017-04-23 16:25 | disposition left against medical advice (07) | DRG 894 ==
LOC: YASAS 08:40 → Y6N 12:02
PROVIDERS: ADMIT Internal Medicine; ATTEND Internal Medicine
PROC: HZ2ZZZZ Detoxification Services for Substance Abuse Treatment (ICD-10-PCS; principal; 2017-04-21)
DX: F19.230 Other psychoactive substance dependence with withdrawal, uncomplicated (principal); F14.20 Cocaine dependence, uncomplicated; F33.2 Major depressive disorder, recurrent severe without psychotic features; F11.23 Opioid dependence with withdrawal; F10.230 Alcohol dependence with withdrawal, uncomplicated; F17.210 Nicotine dependence, cigarettes, uncomplicated; F31.9 Bipolar disorder, unspecified; F25.9 Schizoaffective disorder, unspecified; F43.10 Post-traumatic stress disorder, unspecified; J45.20 Mild intermittent asthma, uncomplicated; Z21 Asymptomatic human immunodeficiency virus [HIV] infection status; Z91.013 Allergy to seafood; Z87.898 Personal history of other specified conditions; Z91.19 Patient's noncompliance with other medical treatment and regimen
CPT/HCPCS: 36415; 80053; 81003; 85027; 86593; 93005; 93010

== ENCOUNTER 2017-08-25 11:42 | Inpatient (IN) | payer OTHER ==
[2017-08-25 12:40] VITALS: BMI 22.5
--- NOTE | 2017-08-25 13:27 | HP ---
COWS - Scale Resting Pulse: 2= AR 101-120 Sweatin= Chills/Flushing Restless Observation: 3= Extraneous Movement Pupil Size: 0= Normal to Room Light Bone or Joint Aches: 4=Acute Joint/Muscle Pain Runny Nose/ Eye Tearin= Runny Nose/Eyes GI Upset > 30mins: 3= Vomiting/Diarrhea Tremor Observation: 2= Slight Tremor Visible Yawning Observation: 1= 1-2x During Session Anxiety or Irritability: 2=Irritable/Anxious Goose Flesh Skin: 0=Smooth Skin COWS Score: 20 CIWA Score - CIWA Score Nausea/Vomitin (N/V/D) Muscle Tremors: 3 Anxiety: 4-Mod. Anxious/Guarded Agitation: 3 Paroxysmal Sweats: No Perspiration Orientation: 0-Oriented Tacttile Disturbances: 0-None Auditory Disturbances: 0-None Visual Disturbances: 0-None Headache: 2-Mild CIWA-Ar Total Score: 17 Admission ROS S - HPI Chief Complaint: HEROIN AND ALCOHOL WITHDRAWAL SX-CHILLS,NAUSEA,HEADACHE,ABDOMINAL CRAMPS. Allergies/Adverse Reactions: Allergies Allergy/AdvReac Type Severity Reaction Status Date / Time Fish Containing Products Allergy Intermediate Swelling Verified 08/25/17 12:40 No Known Drug Allergies Allergy Verified 08/25/17 12:40 History of Present Illness: 37 Y/O H/MALE WITH A HX OF HEROIN,ALCOHOL AND COCAINE DEPENDENCE SEEKING DETOX TX. PT HAS MULTIPLE TREATMENT EPISODES WITH 2 YRS OLD SOBRIETY 14 YRS AGO. PT REPORTS HE WAS AT [facility] YESTERDAY WITH NAUSEA, VOMITING , DIARRHEA AND ABDOMINAL PAIN THEN DISCHARGED TODAY. Exam Limitations: Clinical Condition - Ebola screening Have you traveled outside of the country in the last 21 days: No (N) Have you had contact with anyone from an Ebola affected area: No Have you been sick,other than usual withdrawal symptoms: No Do you have a fever: No - Review of Systems Constitutional: Chills, Loss of Appetite, Night Sweats, Changes in sleep, Unintentional Wgt. Loss EENT: reports: Tearing, Nose Congestion Respiratory: reports: Shortness of Breath Cardiac: reports: Chest Pain ("THEY SAY IT'S PART OF THE THROWING UP FROM WITHDRAWAL SX"), Lightheadedness GI: reports: Diarrhea, Nausea, Poor Appetite, Poor Fluid Intake, Vomiting, Indigestion, Abdominal cramping : reports: No Symptoms Reported Musculoskeletal: reports: Back Pain, Joint Pain, Muscle Pain Integumentary: reports: No Symptoms Reported Neuro: reports: Headache, Numbness (TOES), Tremors, Unsteady Gait, Dizziness Endocrine: reports: No Symptoms Reported Hematology: reports: No Symptoms Reported Psychiatric: reports: Orientated x3, Anxious, Depressed Other Systems: Reviewed and Negative Patient History - Patient Medical History Hx Anemia: No Hx Asthma: Yes (MDI) Hx Chronic Obstructive Pulmonary Disease (COPD): No Hx Cancer: No Hx Cardiac Disorders: No Hx Congestive Heart Failure: No Hx Hypertension: No Hx Hypercholesterolemia: No Hx Pacemaker: No HX Cerebrovascular Accident: No Hx Seizures: No Hx Dementia: No Hx Diabetes: No Hx Gastrointestinal Disorders: No Hx Liver Disease: No Hx Genitourinary Disorders: No Hx Sexually Transmitted Disorders: No Hx Renal Disease (ESRD): No Hx Thyroid Disease: No Hx Human Immunodeficiency Virus (HIV): Yes (since 2006 , vl <20; cd4 = 755 takes Odefsy but didnt bring in) Hx Hepatitis C: No (negative) Hx Depression: Yes Hx Suicide Attempt: No Hx Bipolar Disorder: Yes (hospitalized a year ago Bx [place];DENIES S/I) Hx Schizophrenia: No Other Medical History: PMD:[place] - Patient Surgical History Past Surgical History: No Hx Neurologic Surgery: No Hx Cataract Extraction: No Hx Cardiac Surgery: No Hx Lung Surgery: No Hx Breast Surgery: No Hx Breast Biopsy: No Hx Abdominal Surgery: No Hx Appendectomy: No Hx Cholecystectomy: No Hx Genitourinary Surgery: No Hx Orthopedic Surgery: No Anesthesia Reaction: No - PPD History Previous Implant?: Yes Documented Results: Negative w/proof Implanted On Prior R Admission?: Yes Date: 10/28/16 Results: 0 MM PPD to be Administered?: No - Reproductive History Patient is a Female of Child Bearing Age (11 -55 yrs old): No (MALE) - Smoking Cessation Smoking history: Current every day smoker Have you smoked in the past 12 months: Yes Aproximately how many cigarettes per day: 10 Cigars Per Day: 0 Hx Chewing Tobacco Use: No Initiated information on smoking cessation: Yes 'Breaking Loose' booklet given: 08/25/17 - Substance & Tx. History Hx Alcohol Use: Yes (BEER) Hx Substance Use: Yes (HEROIN/COCAINE) Substance Use Type: Alcohol, Cocaine, Heroin Hx Substance Use Treatment: Yes (LAST TX AT [facility]) - Substances Abused Heroin Route: Inhalation Frequency: Daily Amount used: 8 BAGS Age of first use: 14 Date of Last Use: 08/25/17 Cocaine Route: Inhalation Frequency: Daily Amount used: $200 Age of first use: 21 Date of Last Use: 08/24/17 Alcohol Route: Oral Frequency: Daily Amount used: 3 6PK BEERS Age of first use: 21 Date of Last Use: 08/24/17 Family Disease History - Family Disease History Family Disease History: Other: Father (living,etoh), Mother (, overdose) , Brother (two - living - depression), Sister (three) Admission Physical Exam [facility] - Vital Signs Vital Signs: Vital Signs - 24 hr 08/25/17 12:37 Temperature 98.5 F Pulse Rate 103 H Respiratory 18 Rate Blood Pressure 132/91 - Diagnostic (1) Nicotine dependence Current Visit: Yes Status: Acute Qualifiers: Nicotine product type: cigarettes Substance use status: in withdrawal Qualified Code(s): F17.213 - Nicotine dependence, cigarettes, with withdrawal (2) Alcohol dependence with uncomplicated withdrawal Current Visit: Yes Status: Chronic (3) Asthma Current Visit: No Status: Chronic Qualifiers: Asthma severity: mild Asthma persistence: intermittent Asthma complication type: uncomplicated Qualified Code(s): J45.20 - Mild intermittent asthma, uncomplicated (4) Cocaine dependence Current Visit: Yes Status: Acute Qualifiers: Substance use status: uncomplicated Qualified Code(s): F14.20 - Cocaine dependence, uncomplicated (5) HIV (human immunodeficiency virus infection) Current Visit: Yes Status: Chronic (6) Opioid dependence with withdrawal Current Visit: Yes Status: Acute Cleared for Admission S - Detox or Rehab [facility] Level of Care: Medically Managed Detox Regimen/Protocol: Methadone/Librium S Breath Alcohol Content Breath Alcohol Content: 0 Urine Drug Screen - Results Drug Screen Negative: No Urine Drug Screen Results: CARLA-Cocaine, OPI-Opiates, MTD-Methadone
[2017-08-25] MEDS ORDERED: MAG HYDROX/AL HYDROX/SIMETH 30 ML UNIT-DOSE CUP PO PRN (14:00)
[2017-08-25] MEDS ORDERED: P-EPHED 60MG/TRIPROLIDI 2.5MG TABLET PO PRN (14:00)
[2017-08-25] MEDS ORDERED: chlordiazePOXIDE HCL 25 MG CAPSULE PO PRN (14:00)
[2017-08-25] MEDS ORDERED: MAGNESIUM CITRATE 300 ML BOTTLE PO PRN (14:00)
[2017-08-25] MEDS ORDERED: MAGNESIUM HYDROX 2400MG/30ML ORAL SUSPENSION 30 ML CUP PO PRN (14:00)
[2017-08-25] MEDS ORDERED: LOPERAMIDE HCL 2 MG CAPSULE PO PRN (14:00)
[2017-08-25] MEDS ORDERED: chlordiazePOXIDE HCL 25 MG CAPSULE PO ONE (15:00)
[2017-08-25] MEDS ORDERED: METHADONE HCL 10 MG TABLET (FOR DETOX USE ONLY) PO ONE ×2 (15:00→23:00)
[2017-08-25] MEDS: NICOTINE 14 MG/24 HOURS TOPICAL PATCH TD SCH (15:50)
[2017-08-25] MEDS: NICOTINE POLACRILEX 2 MG GUM BUC PRN (15:51)
[2017-08-25] MEDS: chlordiazePOXIDE HCL 25 MG CAPSULE PO SCH ×2 (17:29→22:26)
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
[2017-08-25 18:10] LABS: URINE APPEARANCE CLEAR; URINE BILIRUBIN NEGATIVE (<2.0 mg/dL); URINE COLOR AMBER; URINE GLUCOSE (UA) NEGATIVE (NEGATIVE); URINE KETONE TRACE (NEGATIVE); URINE LEUK ESTERASE NEGATIVE (NEGATIVE); URINE NITRITE NEGATIVE (NEGATIVE); URINE UROBILINOGEN 4.0 E.U/dl mg/dL (0.2-1.0)
[2017-08-25 18:13] LABS: HEMATOCRIT 50.6 % (35.4-49); HEMOGLOBIN 17.1 GM/dL (11.7-16.9); MCH 30.4 pg (25.7-33.7); MCHC 33.9 g/dl (32.0-35.9); MEAN CELL VOLUME 89.9 fl (80-96); MEAN PLT VOLUME 9.6 fl (7.5-11.1); RBC 5.63 M/mm3 (4.00-5.60); RDW 13.6 % (11.9-15.9); WHITE BLOOD COUNT 8.3 K/mm3 (4.0-10.0)
[2017-08-25] MEDS ORDERED: PATIENT'S OWN MEDICATION (NON-FORMULARY) (Zolpidem Tartrate [Ambien] 10 MG) PO SCH (18:15)
[2017-08-25 18:16] LABS: URINE PROTEIN 2+ (NEGATIVE)
[2017-08-25 18:20] LABS: URINE HYALINE CAST 3 /lpf; URINE MUCUS MANY
[2017-08-25 18:44] LABS: PLATELET COUNT 252 K/MM3 (134-434)
[2017-08-25 19:03] LABS: ALBUMIN 3.7 g/dl (3.4-5.0); BLOOD UREA NITROGEN 17 mg/dL (7-18); CALCIUM 9.2 mg/dL (8.5-10.1); CO2 28 mmol/L (21-32); GLUCOSE,RANDOM 120 mg/dL (74-106); POTASSIUM 3.4 mmol/L (3.5-5.1)
[2017-08-25 20:06] LABS: ANION GAP 13 (8-16); CHLORIDE 97 mmol/L (98-107); SODIUM 138 mmol/L (136-145)
[2017-08-25 20:12] LABS: ALK PHOS 102 U/L (45-117); BILIRUBIN,TOTAL 0.5 mg/dL (0.2-1.0); SGOT/AST 23 U/L (15-37); SGPT/ALT 27 U/L (12-78); TOT PROT 8.6 g/dl (6.4-8.2)
[2017-08-25 20:33] LABS: CREATININE 1.1 mg/dL (0.7-1.3)
[2017-08-25] MEDS ORDERED: ONDANSETRON *ODT* 4 MG TABLET SL ONE (21:00)
[2017-08-25] MEDS: THIAMINE HCL 100 MG TABLET (FP) PO SCH (22:26)
[2017-08-25] MEDS: CYCLOBENZAPRINE HCL 10 MG TABLET (FP) PO SCH (22:27)
[2017-08-25] MEDS: ZOLPIDEM TARTRATE 10 MG TABLET (PARK CARE ONLY) PO PRN (22:27)
[2017-08-25] MEDS: cloNIDine HCL 0.1 MG TABLET PO SCH (22:27)
[2017-08-26] MEDS: chlordiazePOXIDE HCL 25 MG CAPSULE PO SCH ×4 (06:38→22:27)
[2017-08-26] MEDS: CYCLOBENZAPRINE HCL 10 MG TABLET (FP) PO SCH ×3 (06:38→22:26)
[2017-08-26] MEDS ORDERED: METHADONE HCL 10 MG TABLET (FOR DETOX USE ONLY) PO SCH (10:00)
[2017-08-26] MEDS: PRENATAL VITAMINS W/ FOLIC ACID TABLET (FP) PO SCH (11:26)
[2017-08-26] MEDS: NICOTINE 14 MG/24 HOURS TOPICAL PATCH TD SCH (11:26)
--- NOTE | 2017-08-26 12:26 | EKG ---
Test Reason : Blood Pressure : / mmHG Vent. Rate : 097 BPM Atrial Rate : 097 BPM P-R Int : 128 ms QRS Dur : 096 ms QT Int : 362 ms P-R-T Axes : 077 086 024 degrees QTc Int : 459 ms SINUS RHYTHM WITH OCCASIONAL PREMATURE VENTRICULAR COMPLEXES BIATRIAL ENLARGEMENT LEFT VENTRICULAR HYPERTROPHY ABNORMAL ECG WHEN COMPARED WITH ECG OF 21-APR-2017 12:51, PREMATURE VENTRICULAR COMPLEXES ARE NOW PRESENT ST NO LONGER ELEVATED IN INFERIOR LEADS ST NO LONGER ELEVATED IN LATERAL LEADS T WAVE INVERSION NOW EVIDENT IN INFERIOR LEADS NONSPECIFIC T WAVE ABNORMALITY NOW EVIDENT IN LATERAL LEADS Confirmed by MD MERYL, JENNIFER ([id number]) on 08/26/2017 12:25:26 PM Referred By: Confirmed By:JENNIFER SHETH MD
[2017-08-26] MEDS: cloNIDine HCL 0.1 MG TABLET PO SCH ×2 (12:33→22:26)
[2017-08-26] MEDS ORDERED: TRIMETHOBENZAMIDE HCL 200MG/2ML INJ IM PRN (12:40)
[2017-08-26] MEDS ORDERED: METHADONE HCL 10 MG TABLET (FOR DETOX USE ONLY) PO ONE (12:41)
[2017-08-26] MEDS ORDERED: cloNIDine HCL 0.1 MG TABLET PO ONE (12:44)
[2017-08-26] MEDS ORDERED: POTASSIUM CHLORIDE TABS 20 MEQ TABLET.ER (FP) PO ONE (12:46)
--- NOTE | 2017-08-26 12:50 | PN ---
S CIWA - CIWA Score Nausea/Vomitin Muscle Tremors: 2 Anxiety: 4-Mod. Anxious/Guarded Agitation: 2 Paroxysmal Sweats: No Perspiration Orientation: 2-Disoriented Date<2 days Tacttile Disturbances: 1-Very Mild Itch/Numbness Auditory Disturbances: 0-None Visual Disturbances: 2-Mild Sensitivity Headache: 0-None Present CIWA-Ar Total Score: 19 BHS COWS - Scale Resting Pulse: 2= [place] 101-120 Sweatin= Chills/Flushing Restless Observation: 0= Sits Still Pupil Size: 0= Normal to Room Light Bone or Joint Aches: 0= None Runny Nose/ Eye Tearin= Runny Nose/Eyes GI Upset > 30mins: 3= Vomiting/Diarrhea Tremor Observation of Outstretched Hands: 2= Slight Tremor Visible Yawning Observation: 1= 1-2x During Session Anxiety or Irritability: 2=Irritable/Anxious Goose Flesh Skin: 3=Piloerection COWS Score: 16 S Progress Note (SOAP) Subjective: Vomiting, Fatigue, Anxious, Chills, Interrupted Sleep. Objective: PATIENT A & O X 2 (UNCERTAIN ABOUT CURRENT DAY / DATE). NO ACUTE DISTRESS. 08/26/17 12:49 Vital Signs Temperature 99.2 F 08/26/17 09:08 Pulse Rate 98 H 08/26/17 09:08 Respiratory Rate 18 08/26/17 09:08 Blood Pressure 120/78 08/26/17 09:08 O2 Sat by Pulse Oximetry (%) Laboratory Tests 08/25/17 08/25/17 08/25/17 15:00 15:00 17:45 WBC 8.3 D RBC 5.63 H Hgb 17.1 H D Hct 50.6 H MCV 89.9 MCH 30.4 MCHC 33.9 RDW 13.6 Plt Count 252 MPV 9.6 Platelet Comment No clumping noted Sodium 138 Potassium 3.4 L Chloride 97 L Carbon Dioxide 28 Anion Gap 13 BUN 17 D Creatinine 1.1 D Creat Clearance w eGFR > 60 Random Glucose 120 H Calcium 9.2 Total Bilirubin 0.5 D AST 23 D ALT 27 D Alkaline Phosphatase 102 D Total Protein 8.6 H Albumin 3.7 Urine Color [place] Urine Appearance Clear Urine pH 6.0 Ur Specific [place] 1.032 Urine Protein 2+ H Urine Glucose (UA) Negative Urine Ketones Trace H Urine Blood Negative Urine Nitrite Negative Urine Bilirubin Negative Urine Urobilinogen 4.0 e.u/dl Ur Leukocyte Esterase Negative Urine WBC (Auto) 1 Urine RBC (Auto) 1 Hyaline Casts 3 Urine Mucus Many LABS NOTED. RPR RESULT PENDING. 08/26/17 12:49 Assessment: 08/26/17 12:49 WITHDRAWAL SYMPTOMS. HYPOKALEMIA. 08/26/17 12:49 Plan: CONTINUE DETOX. PRN TIGAN IM FOR NAUSEA/VOMITING. K-DUR, 20 MEQ PO BID. INCREASE DAILY PO FLUID INTAKE.
[2017-08-26] MEDS: POTASSIUM CHLORIDE TABS 20 MEQ TABLET.ER (FP) PO SCH (18:07)
[2017-08-26] MEDS: THIAMINE HCL 100 MG TABLET (FP) PO SCH (22:28)
[2017-08-27] MEDS: chlordiazePOXIDE HCL 25 MG CAPSULE PO SCH ×2 (06:28→12:24)
[2017-08-27] MEDS: CYCLOBENZAPRINE HCL 10 MG TABLET (FP) PO SCH ×3 (06:31→22:32)
--- NOTE | 2017-08-27 11:41 | PN ---
S CIWA - CIWA Score Nausea/Vomitin-Int. Nausea w/Dry Heave Muscle Tremors: None Anxiety: 4-Mod. Anxious/Guarded Agitation: 0-Normal Activity Paroxysmal Sweats: No Perspiration Orientation: 0-Oriented Tacttile Disturbances: 2-Mild Itch/Numbness/Burn Auditory Disturbances: 2-Mild Harshness/Frighten Visual Disturbances: 3-Moderate Sensitivity Headache: 0-None Present CIWA-Ar Total Score: 15 S COWS - Scale Resting Pulse: 2= [place] 101-120 Sweatin= No chills or Flushing Restless Observation: 0= Sits Still Pupil Size: 0= Normal to Room Light Bone or Joint Aches: 4=Acute Joint/Muscle Pain Runny Nose/ Eye Tearin= None GI Upset > 30mins: 2= Nausea/Diarrhea Tremor Observation of Outstretched Hands: 0= None Yawning Observation: 2= >3x During Session Anxiety or Irritability: 2=Irritable/Anxious Goose Flesh Skin: 0=Smooth Skin COWS Score: 12 S Progress Note (SOAP) Subjective: Interrupted Sleep, Body Aches, Fatigue, Poor Appetite, Stomach Cramping, Nausea. Objective: PATIENT A & O X 3. NO ACUTE DISTRESS. 08/27/17 11:38 Vital Signs Temperature 99.2 F 08/27/17 09:28 Pulse Rate 101 H 08/27/17 09:28 Respiratory Rate 18 08/27/17 09:28 Blood Pressure 109/78 08/27/17 09:28 O2 Sat by Pulse Oximetry (%) Laboratory Tests 08/25/17 08/25/17 08/25/17 15:00 15:00 15:00 WBC 8.3 D RBC 5.63 H Hgb 17.1 H D Hct 50.6 H MCV 89.9 MCH 30.4 MCHC 33.9 RDW 13.6 Plt Count 252 MPV 9.6 Platelet Comment No clumping noted Sodium 138 Potassium 3.4 L Chloride 97 L Carbon Dioxide 28 Anion Gap 13 BUN 17 D Creatinine 1.1 D Creat Clearance w eGFR > 60 Random Glucose 120 H Calcium 9.2 Total Bilirubin 0.5 D AST 23 D ALT 27 D Alkaline Phosphatase 102 D Total Protein 8.6 H Albumin 3.7 Urine Color Urine Appearance Urine pH Ur Specific [place] Urine Protein Urine Glucose (UA) Urine Ketones Urine Blood Urine Nitrite Urine Bilirubin Urine Urobilinogen Ur Leukocyte Esterase Urine WBC (Auto) Urine RBC (Auto) Hyaline Casts Urine Mucus RPR Titer Nonreactive 08/25/17 17:45 WBC RBC Hgb Hct MCV MCH MCHC RDW Plt Count MPV Platelet Comment Sodium Potassium Chloride Carbon Dioxide Anion Gap BUN Creatinine Creat Clearance w eGFR Random Glucose Calcium Total Bilirubin AST ALT Alkaline Phosphatase Total Protein Albumin Urine Color [place] Urine Appearance Clear Urine pH 6.0 Ur Specific [place] 1.032 Urine Protein 2+ H Urine Glucose (UA) Negative Urine Ketones Trace H Urine Blood Negative Urine Nitrite Negative Urine Bilirubin Negative Urine Urobilinogen 4.0 e.u/dl Ur Leukocyte Esterase Negative Urine WBC (Auto) 1 Urine RBC (Auto) 1 Hyaline Casts 3 Urine Mucus Many RPR Titer LABS NOTED. Assessment: 08/27/17 11:39 WITHDRAWAL SYMPTOMS. HYPOKALEMIA. 08/27/17 11:40 Plan: CONTINUE DETOX. INCREASE DAILY PO FLUID INTAKE. ENCOURAGE AMBULATION. PRN TIGAN IM FOR NAUSEA/VOMITING. CONTINUE K-DUR.
[2017-08-27] MEDS: NICOTINE 14 MG/24 HOURS TOPICAL PATCH TD SCH (12:24)
[2017-08-27] MEDS: cloNIDine HCL 0.1 MG TABLET PO SCH ×2 (12:24→22:32)
[2017-08-27] MEDS: PRENATAL VITAMINS W/ FOLIC ACID TABLET (FP) PO SCH (12:24)
[2017-08-27] MEDS: POTASSIUM CHLORIDE TABS 20 MEQ TABLET.ER (FP) PO SCH ×2 (12:24→18:33)
[2017-08-27] MEDS: METHADONE HCL 5 MG TABLET (FOR DETOX USE ONLY) PO SCH (12:24)
[2017-08-27] MEDS: ACETAMINOPHEN 325 MG TABLET (FP) PO PRN (16:40)
[2017-08-27] MEDS: NICOTINE POLACRILEX 2 MG GUM BUC PRN ×2 (16:41→19:18)
[2017-08-27] MEDS: chlordiazePOXIDE 5 MG CAPSULE PO SCH ×2 (16:41→22:32)
[2017-08-27] MEDS: ZOLPIDEM TARTRATE 10 MG TABLET (PARK CARE ONLY) PO PRN (22:32)
[2017-08-27] MEDS: THIAMINE HCL 100 MG TABLET (FP) PO SCH (22:34)
[2017-08-28] MEDS: chlordiazePOXIDE 5 MG CAPSULE PO SCH ×2 (05:47→11:27)
[2017-08-28] MEDS: CYCLOBENZAPRINE HCL 10 MG TABLET (FP) PO SCH ×3 (05:47→22:17)
[2017-08-28] MEDS ORDERED: AMOX TR/POT CLAV 875MG/125MG TABLETS (FP) PO ONE (09:55)
[2017-08-28] MEDS: PRENATAL VITAMINS W/ FOLIC ACID TABLET (FP) PO SCH (11:26)
[2017-08-28] MEDS: NICOTINE POLACRILEX 2 MG GUM BUC PRN ×3 (11:27→17:16)
[2017-08-28] MEDS: METHADONE HCL 5 MG TABLET (FOR DETOX USE ONLY) PO SCH (11:27)
[2017-08-28] MEDS: POTASSIUM CHLORIDE TABS 20 MEQ TABLET.ER (FP) PO SCH ×2 (11:27→17:14)
[2017-08-28] MEDS: NICOTINE 14 MG/24 HOURS TOPICAL PATCH TD SCH (11:27)
[2017-08-28] MEDS: cloNIDine HCL 0.1 MG TABLET PO SCH ×2 (11:27→22:17)
--- NOTE | 2017-08-28 12:18 | PN ---
BHS Progress Note (SOAP) Subjective: Sweating, Body Aches, Chills, Fatigue, Tremors. Patient reports that previous nausea has subsided considerably. Patient reports that he has been coughing (productive, green phlegm) and has had a sore throat since yesterday. Objective: PATIENT A & O X 3, OBSERVED AMBULATING ON UNIT. NO ACUTE DISTRESS. RHONCHI AUSCULTATED BILATERALLY ON AUSCULTATION OF LUNGS. 08/28/17 12:14 Vital Signs Temperature 100.3 F H 08/28/17 09:22 Pulse Rate 100 H 08/28/17 09:22 Respiratory Rate 20 08/28/17 09:22 Blood Pressure 120/70 08/28/17 09:22 O2 Sat by Pulse Oximetry (%) Laboratory Tests 08/25/17 08/25/17 08/25/17 15:00 15:00 15:00 WBC 8.3 D RBC 5.63 H Hgb 17.1 H D Hct 50.6 H MCV 89.9 MCH 30.4 MCHC 33.9 RDW 13.6 Plt Count 252 MPV 9.6 Platelet Comment No clumping noted Sodium 138 Potassium 3.4 L Chloride 97 L Carbon Dioxide 28 Anion Gap 13 BUN 17 D Creatinine 1.1 D Creat Clearance w eGFR > 60 Random Glucose 120 H Calcium 9.2 Total Bilirubin 0.5 D AST 23 D ALT 27 D Alkaline Phosphatase 102 D Total Protein 8.6 H Albumin 3.7 Urine Color Urine Appearance Urine pH Ur Specific [place] Urine Protein Urine Glucose (UA) Urine Ketones Urine Blood Urine Nitrite Urine Bilirubin Urine Urobilinogen Ur Leukocyte Esterase Urine WBC (Auto) Urine RBC (Auto) Hyaline Casts Urine Mucus RPR Titer Nonreactive 08/25/17 17:45 WBC RBC Hgb Hct MCV MCH MCHC RDW Plt Count MPV Platelet Comment Sodium Potassium Chloride Carbon Dioxide Anion Gap BUN Creatinine Creat Clearance w eGFR Random Glucose Calcium Total Bilirubin AST ALT Alkaline Phosphatase Total Protein Albumin Urine Color [place] Urine Appearance Clear Urine pH 6.0 Ur Specific [place] 1.032 Urine Protein 2+ H Urine Glucose (UA) Negative Urine Ketones Trace H Urine Blood Negative Urine Nitrite Negative Urine Bilirubin Negative Urine Urobilinogen 4.0 e.u/dl Ur Leukocyte Esterase Negative Urine WBC (Auto) 1 Urine RBC (Auto) 1 Hyaline Casts 3 Urine Mucus Many RPR Titer LABS NOTED. 08/28/17 12:23 Assessment: 08/28/17 12:16 WITHDRAWAL SYMPTOMS. HYPOKALEMIA. 08/28/17 12:26 Plan: CONTINUE DETOX. AUGMENTIN, 875 MG BID ORDERED FOR POSSIBLE URI. TYLRNOL FOR ELEVATED TEMP. INCREASE DAILY PO FLUID INTAKE.
[2017-08-28] MEDS: ACETAMINOPHEN 325 MG TABLET (FP) PO PRN (13:27)
[2017-08-28] MEDS: guaiFENesin/D-METHORPHAN HB 10 ML UNIT-DOSE CUPS PO PRN (14:54)
[2017-08-28] MEDS: AMOX TR/POT CLAV 875MG/125MG TABLETS (FP) PO SCH (17:14)
[2017-08-28] MEDS: chlordiazePOXIDE HCL 10 MG CAPSULE PO SCH ×2 (17:14→22:17)
[2017-08-28] MEDS: ZOLPIDEM TARTRATE 10 MG TABLET (PARK CARE ONLY) PO PRN (21:50)
[2017-08-28] MEDS: THIAMINE HCL 100 MG TABLET (FP) PO SCH (22:17)
[2017-08-29] MEDS: chlordiazePOXIDE HCL 10 MG CAPSULE PO SCH ×2 (05:34→10:17)
[2017-08-29] MEDS: CYCLOBENZAPRINE HCL 10 MG TABLET (FP) PO SCH ×3 (05:34→22:24)
[2017-08-29] MEDS: ACETAMINOPHEN 325 MG TABLET (FP) PO PRN ×2 (05:35→14:56)
[2017-08-29] MEDS: AMOX TR/POT CLAV 875MG/125MG TABLETS (FP) PO SCH ×2 (07:07→17:41)
[2017-08-29] MEDS: guaiFENesin/D-METHORPHAN HB 10 ML UNIT-DOSE CUPS PO PRN (07:08)
[2017-08-29] MEDS: NICOTINE POLACRILEX 2 MG GUM BUC PRN ×5 (07:09→22:25)
[2017-08-29] MEDS: MENTHOL/PHENOL 1 EACH UD MM PRN ×2 (07:09→15:01)
[2017-08-29] MEDS ORDERED: METHADONE HCL 10 MG TABLET (FOR DETOX USE ONLY) PO SCH (10:00)
[2017-08-29] MEDS: cloNIDine HCL 0.1 MG TABLET PO SCH ×2 (10:16→22:24)
[2017-08-29] MEDS: PRENATAL VITAMINS W/ FOLIC ACID TABLET (FP) PO SCH (10:16)
[2017-08-29] MEDS: POTASSIUM CHLORIDE TABS 20 MEQ TABLET.ER (FP) PO SCH ×2 (10:16→17:41)
[2017-08-29] MEDS: NICOTINE 14 MG/24 HOURS TOPICAL PATCH TD SCH (10:17)
--- NOTE | 2017-08-29 15:53 | PN ---
BHS Progress Note (SOAP) Subjective: Interrupted Sleep, Fatigue, Vomiting, Body Aches. Objective: PATIENT A & O X 2 (UNCERTAIN ABOUT CURRENT DAY / DATE). PATIENT OBSERVED AMBULATING ON UNIT. NO ACUTE DISTRESS. 08/29/17 15:52 Vital Signs Temperature 98.4 F 08/29/17 13:53 Pulse Rate 94 H 08/29/17 13:53 Respiratory Rate 16 08/29/17 13:53 Blood Pressure 102/60 08/29/17 13:53 O2 Sat by Pulse Oximetry (%) Laboratory Tests 08/25/17 08/25/17 08/25/17 15:00 15:00 15:00 WBC 8.3 D RBC 5.63 H Hgb 17.1 H D Hct 50.6 H MCV 89.9 MCH 30.4 MCHC 33.9 RDW 13.6 Plt Count 252 MPV 9.6 Platelet Comment No clumping noted Sodium 138 Potassium 3.4 L Chloride 97 L Carbon Dioxide 28 Anion Gap 13 BUN 17 D Creatinine 1.1 D Creat Clearance w eGFR > 60 Random Glucose 120 H Calcium 9.2 Total Bilirubin 0.5 D AST 23 D ALT 27 D Alkaline Phosphatase 102 D Total Protein 8.6 H Albumin 3.7 Urine Color Urine Appearance Urine pH Ur Specific [place] Urine Protein Urine Glucose (UA) Urine Ketones Urine Blood Urine Nitrite Urine Bilirubin Urine Urobilinogen Ur Leukocyte Esterase Urine WBC (Auto) Urine RBC (Auto) Hyaline Casts Urine Mucus RPR Titer Nonreactive 08/25/17 17:45 WBC RBC Hgb Hct MCV MCH MCHC RDW Plt Count MPV Platelet Comment Sodium Potassium Chloride Carbon Dioxide Anion Gap BUN Creatinine Creat Clearance w eGFR Random Glucose Calcium Total Bilirubin AST ALT Alkaline Phosphatase Total Protein Albumin Urine Color [place] Urine Appearance Clear Urine pH 6.0 Ur Specific [place] 1.032 Urine Protein 2+ H Urine Glucose (UA) Negative Urine Ketones Trace H Urine Blood Negative Urine Nitrite Negative Urine Bilirubin Negative Urine Urobilinogen 4.0 e.u/dl Ur Leukocyte Esterase Negative Urine WBC (Auto) 1 Urine RBC (Auto) 1 Hyaline Casts 3 Urine Mucus Many RPR Titer LABS NOTED. Assessment: 08/29/17 15:52 WITHDRAWAL SYMPTOMS. HYPOKALEMIA. 08/29/17 15:53 Plan: CONTINUE DETOX.
[2017-08-29] MEDS: THIAMINE HCL 100 MG TABLET (FP) PO SCH (22:24)
[2017-08-29] MEDS: MELATONIN 5 MG TABLETS PO PRN (22:24)
[2017-08-30] MEDS ORDERED: ALBUTEROL SO4 18 GM HFA INHALER IH ONE (02:57)
[2017-08-30] MEDS: ALBUTEROL SO4 18 GM HFA INHALER IH PRN ×2 (03:05→05:13)
[2017-08-30] MEDS: CYCLOBENZAPRINE HCL 10 MG TABLET (FP) PO SCH ×3 (05:13→22:13)
[2017-08-30] MEDS ORDERED: METHADONE HCL 5 MG TABLET (FOR DETOX USE ONLY) PO SCH (06:00)
[2017-08-30] MEDS: IBUPROFEN 400 MG TABLET (FP) PO PRN ×2 (06:54→16:31)
[2017-08-30] MEDS: AMOX TR/POT CLAV 875MG/125MG TABLETS (FP) PO SCH ×2 (07:43→16:31)
[2017-08-30] MEDS: POTASSIUM CHLORIDE TABS 20 MEQ TABLET.ER (FP) PO SCH ×2 (10:08→18:03)
[2017-08-30] MEDS: cloNIDine HCL 0.1 MG TABLET PO SCH ×2 (10:08→22:13)
[2017-08-30] MEDS: PRENATAL VITAMINS W/ FOLIC ACID TABLET (FP) PO SCH (10:08)
[2017-08-30] MEDS: NICOTINE 14 MG/24 HOURS TOPICAL PATCH TD SCH (10:08)
[2017-08-30] MEDS: NICOTINE POLACRILEX 2 MG GUM BUC PRN ×3 (10:09→19:48)
--- NOTE | 2017-08-30 21:01 | PN ---
BHS Progress Note (SOAP) Subjective: Fatigue, Body Aches, Stomach Cramping, Interrupted Sleep. Objective: PATIENT A & O X 3, OBSERVED AMBULATING ON UNIT. NO ACUTE DISTRESS. 08/30/17 20:58 Vital Signs Temperature 98.9 F 08/30/17 17:44 Pulse Rate 94 H 08/30/17 17:44 Respiratory Rate 16 08/30/17 17:44 Blood Pressure 104/56 08/30/17 17:44 O2 Sat by Pulse Oximetry (%) Laboratory Tests 08/25/17 08/25/17 08/25/17 15:00 15:00 15:00 WBC 8.3 D RBC 5.63 H Hgb 17.1 H D Hct 50.6 H MCV 89.9 MCH 30.4 MCHC 33.9 RDW 13.6 Plt Count 252 MPV 9.6 Platelet Comment No clumping noted Sodium 138 Potassium 3.4 L Chloride 97 L Carbon Dioxide 28 Anion Gap 13 BUN 17 D Creatinine 1.1 D Creat Clearance w eGFR > 60 Random Glucose 120 H Calcium 9.2 Total Bilirubin 0.5 D AST 23 D ALT 27 D Alkaline Phosphatase 102 D Total Protein 8.6 H Albumin 3.7 Urine Color Urine Appearance Urine pH Ur Specific [place] Urine Protein Urine Glucose (UA) Urine Ketones Urine Blood Urine Nitrite Urine Bilirubin Urine Urobilinogen Ur Leukocyte Esterase Urine WBC (Auto) Urine RBC (Auto) Hyaline Casts Urine Mucus RPR Titer Nonreactive 08/25/17 17:45 WBC RBC Hgb Hct MCV MCH MCHC RDW Plt Count MPV Platelet Comment Sodium Potassium Chloride Carbon Dioxide Anion Gap BUN Creatinine Creat Clearance w eGFR Random Glucose Calcium Total Bilirubin AST ALT Alkaline Phosphatase Total Protein Albumin Urine Color [place] Urine Appearance Clear Urine pH 6.0 Ur Specific [place] 1.032 Urine Protein 2+ H Urine Glucose (UA) Negative Urine Ketones Trace H Urine Blood Negative Urine Nitrite Negative Urine Bilirubin Negative Urine Urobilinogen 4.0 e.u/dl Ur Leukocyte Esterase Negative Urine WBC (Auto) 1 Urine RBC (Auto) 1 Hyaline Casts 3 Urine Mucus Many RPR Titer LABS NOTED. Assessment: 08/30/17 20:58 WITHDRAWAL SYMPTOMS. Plan: CONTINUE DETOX. DUE TO LINGERING WITHDRAWAL SYMPTOMS, PATIENT PERMITTED TO REMAIN ON DETOX UNIT UNTIL 09/01/2017, AT WHICH TIME HE WILL BE DISCHARGED TO GO ON TO [facility] FOR AFTERCARE.
[2017-08-30] MEDS: THIAMINE HCL 100 MG TABLET (FP) PO SCH (22:13)
[2017-08-30] MEDS: MELATONIN 5 MG TABLETS PO PRN (22:19)
[2017-08-31] MEDS: CYCLOBENZAPRINE HCL 10 MG TABLET (FP) PO SCH ×3 (05:21→22:08)
[2017-08-31] MEDS: AMOX TR/POT CLAV 875MG/125MG TABLETS (FP) PO SCH ×2 (07:40→17:20)
[2017-08-31] MEDS: POTASSIUM CHLORIDE TABS 20 MEQ TABLET.ER (FP) PO SCH ×2 (10:12→22:08)
[2017-08-31] MEDS: PRENATAL VITAMINS W/ FOLIC ACID TABLET (FP) PO SCH (10:12)
[2017-08-31] MEDS: cloNIDine HCL 0.1 MG TABLET PO SCH ×2 (10:12→22:08)
[2017-08-31] MEDS: NICOTINE 14 MG/24 HOURS TOPICAL PATCH TD SCH (10:12)
[2017-08-31] MEDS: IBUPROFEN 400 MG TABLET (FP) PO PRN ×2 (10:13→17:21)
--- NOTE | 2017-08-31 12:35 | PN ---
[facility] Progress Note Note: irritable, interrupted sleep, chills, body aches Vital Signs Temperature 98.2 F 08/31/17 09:06 Pulse Rate 80 08/31/17 09:06 Respiratory Rate 18 08/31/17 09:06 Blood Pressure 108/70 08/31/17 09:06 O2 Sat by Pulse Oximetry (%) Laboratory Last Values WBC 8.3 K/mm3 (4.0-10.0) D 08/25/17 15:00 RBC 5.63 M/mm3 (4.00-5.60) H 08/25/17 15:00 Hgb 17.1 GM/dL (11.7-16.9) H D 08/25/17 15:00 Hct 50.6 % (35.4-49) H 08/25/17 15:00 MCV 89.9 fl (80-96) 08/25/17 15:00 MCH 30.4 pg (25.7-33.7) 08/25/17 15:00 MCHC 33.9 g/dl (32.0-35.9) 08/25/17 15:00 RDW 13.6 % (11.9-15.9) 08/25/17 15:00 Plt Count 252 K/MM3 (134-434) 08/25/17 15:00 MPV 9.6 fl (7.5-11.1) 08/25/17 15:00 Platelet Comment No clumping noted 08/25/17 15:00 Sodium 138 mmol/L (136-145) 08/25/17 15:00 Potassium 3.4 mmol/L (3.5-5.1) L 08/25/17 15:00 Chloride 97 mmol/L (98-107) L 08/25/17 15:00 Carbon Dioxide 28 mmol/L (21-32) 08/25/17 15:00 Anion Gap 13 (8-16) 08/25/17 15:00 BUN 17 mg/dL (7-18) D 08/25/17 15:00 Creatinine 1.1 mg/dL (0.7-1.3) D 08/25/17 15:00 Creat Clearance w eGFR > 60 (>60) 08/25/17 15:00 Random Glucose 120 mg/dL (74-106) H 06/11/18 15:00 Calcium 9.2 mg/dL (8.5-10.1) 08/25/17 15:00 Total Bilirubin 0.5 mg/dL (0.2-1.0) D 08/25/17 15:00 AST 23 U/L (15-37) D 08/25/17 15:00 ALT 27 U/L (12-78) D 08/25/17 15:00 Alkaline Phosphatase 102 U/L (45-117) D 08/25/17 15:00 Total Protein 8.6 g/dl (6.4-8.2) H 08/25/17 15:00 Albumin 3.7 g/dl (3.4-5.0) 08/25/17 15:00 Urine Color [place] 08/25/17 17:45 Urine Appearance Clear 08/25/17 17:45 Urine pH 6.0 (5.0-8.0) 08/25/17 17:45 Ur Specific [place] 1.032 (1.001-1.035) 08/25/17 17:45 Urine Protein 2+ (NEGATIVE) H 08/25/17 17:45 Urine Glucose (UA) Negative (NEGATIVE) 08/25/17 17:45 Urine Ketones Trace (NEGATIVE) H 08/25/17 17:45 Urine Blood Negative (NEGATIVE) 08/25/17 17:45 Urine Nitrite Negative (NEGATIVE) 08/25/17 17:45 Urine Bilirubin Negative (<2.0 mg/dL) 08/25/17 17:45 Urine Urobilinogen 4.0 e.u/dl mg/dL (0.2-1.0) 08/25/17 17:45 Ur Leukocyte Esterase Negative (NEGATIVE) 08/25/17 17:45 Urine WBC (Auto) 1 /hpf (3-5) 08/25/17 17:45 Urine RBC (Auto) 1 /hpf (0-3) 08/25/17 17:45 Hyaline Casts 3 /lpf 08/25/17 17:45 Urine Mucus Many 08/25/17 17:45 RPR Titer Nonreactive (NONREACTIVE) 08/25/17 15:00 AOx3 no apparent distress no adventitious breath sounds full ROM, ambulating in the unit withdrawal symptoms continue detox increase fluids Patient is scheduled for d/c tomorrow to attends [place] [facility] continue to monitor
[2017-08-31] MEDS: NICOTINE POLACRILEX 2 MG GUM BUC PRN ×2 (13:54→17:22)
[2017-08-31] MEDS: THIAMINE HCL 100 MG TABLET (FP) PO SCH (22:08)
[2017-08-31] MEDS: MELATONIN 5 MG TABLETS PO PRN (22:09)
[2017-09-01] MEDS: CYCLOBENZAPRINE HCL 10 MG TABLET (FP) PO SCH (05:56)
[2017-09-01] MEDS: IBUPROFEN 400 MG TABLET (FP) PO PRN (05:56)
[2017-09-01] MEDS: AMOX TR/POT CLAV 875MG/125MG TABLETS (FP) PO SCH (07:49)
--- NOTE | 2017-09-01 08:29 | DS ---
[facility] Detox Discharge Summary Admission Date: 08/25/17 Discharge Date: 09/01/17 - History Present History: Alcohol Dependence, Cocaine Dependence, Opioid Dependence Additional Comments: DETOX COMPLETED. ALERT O X 3. NAD. PT REPORTS PRIMARY CARE WITH DR. VILLANUEVA. Pertinent Past History: PLEASE SEE DX BELOW - Physical Exam Results Vital Signs: Vital Signs Temperature 97.7 F 09/01/17 06:19 Pulse Rate 77 09/01/17 06:19 Respiratory Rate 18 09/01/17 06:19 Blood Pressure 113/61 09/01/17 06:19 O2 Sat by Pulse Oximetry (%) Pertinent Admission Physical Exam Findings: WITHDRAWAL SX Laboratory Tests 08/25/17 08/25/17 08/25/17 15:00 15:00 15:00 WBC 8.3 D RBC 5.63 H Hgb 17.1 H D Hct 50.6 H MCV 89.9 MCH 30.4 MCHC 33.9 RDW 13.6 Plt Count 252 MPV 9.6 Platelet Comment No clumping noted Sodium 138 Potassium 3.4 L Chloride 97 L Carbon Dioxide 28 Anion Gap 13 BUN 17 D Creatinine 1.1 D Creat Clearance w eGFR > 60 Random Glucose 120 H Calcium 9.2 Total Bilirubin 0.5 D AST 23 D ALT 27 D Alkaline Phosphatase 102 D Total Protein 8.6 H Albumin 3.7 Urine Color Urine Appearance Urine pH Ur Specific [place] Urine Protein Urine Glucose (UA) Urine Ketones Urine Blood Urine Nitrite Urine Bilirubin Urine Urobilinogen Ur Leukocyte Esterase Urine WBC (Auto) Urine RBC (Auto) Hyaline Casts Urine Mucus RPR Titer Nonreactive 08/25/17 17:45 WBC RBC Hgb Hct MCV MCH MCHC RDW Plt Count MPV Platelet Comment Sodium Potassium Chloride Carbon Dioxide Anion Gap BUN Creatinine Creat Clearance w eGFR Random Glucose Calcium Total Bilirubin AST ALT Alkaline Phosphatase Total Protein Albumin Urine Color [place] Urine Appearance Clear Urine pH 6.0 Ur Specific [place] 1.032 Urine Protein 2+ H Urine Glucose (UA) Negative Urine Ketones Trace H Urine Blood Negative Urine Nitrite Negative Urine Bilirubin Negative Urine Urobilinogen 4.0 e.u/dl Ur Leukocyte Esterase Negative Urine WBC (Auto) 1 Urine RBC (Auto) 1 Hyaline Casts 3 Urine Mucus Many RPR Titer - Treatment Hospital Course: Detox Protocol Followed, Detoxed Safely, Responded well, Discharged Condition Good, Rehab Referral Accepted Patient has Accepted a Rehab Referral to: [facility] - Medication Discharge Medications: Ambulatory Orders Salmeterol/Fluticasone [Advair 250Mcg/50Mcg -] 1 inh PO BID 10/24/14 Albuterol Sulfate Inhaler - [Ventolin HFA Inhaler -] 2 inh PO Q4H PRN #1 canister 10/31/14 Zolpidem Tartrate [Ambien] 10 mg PO HS 10/26/16 Emtricitab/Rilpiviri/Tenof Ala [Odefsey Tablet] 1 each PO DAILY 10/31/16 Amoxicillin/Potassium Clav [Augmentin 875-125 Tablet] 1 each PO BID 3 Days #6 tablet 08/30/17 - Diagnosis (1) Nicotine dependence Status: Acute Qualifiers: Nicotine product type: cigarettes Substance use status: in withdrawal Qualified Code(s): F17.213 - Nicotine dependence, cigarettes, with withdrawal (2) Alcohol dependence with uncomplicated withdrawal Status: Acute (3) Asthma Status: Chronic Qualifiers: Asthma severity: mild Asthma persistence: intermittent Asthma complication type: uncomplicated Qualified Code(s): J45.20 - Mild intermittent asthma, uncomplicated (4) Cocaine dependence Status: Acute Qualifiers: Substance use status: uncomplicated Qualified Code(s): F14.20 - Cocaine dependence, uncomplicated (5) HIV (human immunodeficiency virus infection) Status: Chronic (6) Opioid dependence with withdrawal Status: Acute (7) Hypokalemia Status: Acute (8) Weight loss Status: Acute - AMA Did Patient Leave Against Medical Advice: No
--- NOTE | 2017-09-01 08:30 | PN ---
B[facility] Progress Note (SOAP) Subjective: DETOX COMPLETED. ALERT O X 3. NAD. PT REFERR[facility] TO [facility] FOR AFTERCARE. Objective: 09/01/17 10:09 Vital Signs 09/01/17 09/01/17 06:19 09:03 Temperature 97.7 F 97.8 F Pulse Rate 77 92 H Respiratory 18 16 Rate Blood Pressure 113/61 108/64 Laboratory Tests 08/25/17 08/25/17 08/25/17 15:00 15:00 15:00 WBC 8.3 D RBC 5.63 H Hgb 17.1 H D Hct 50.6 H MCV 89.9 MCH 30.4 MCHC 33.9 RDW 13.6 Plt Count 252 MPV 9.6 Platelet Comment No clumping noted Sodium 138 Potassium 3.4 L Chloride 97 L Carbon Dioxide 28 Anion Gap 13 BUN 17 D Creatinine 1.1 D Creat Clearance w eGFR > 60 Random Glucose 120 H Calcium 9.2 Total Bilirubin 0.5 D AST 23 D ALT 27 D Alkaline Phosphatase 102 D Total Protein 8.6 H Albumin 3.7 Urine Color Urine Appearance Urine pH Ur Specific [place] Urine Protein Urine Glucose (UA) Urine Ketones Urine Blood Urine Nitrite Urine Bilirubin Urine Urobilinogen Ur Leukocyte Esterase Urine WBC (Auto) Urine RBC (Auto) Hyaline Casts Urine Mucus RPR Titer Nonreactive 08/25/17 17:45 WBC RBC Hgb Hct MCV MCH MCHC RDW Plt Count MPV Platelet Comment Sodium Potassium Chloride Carbon Dioxide Anion Gap BUN Creatinine Creat Clearance w eGFR Random Glucose Calcium Total Bilirubin AST ALT Alkaline Phosphatase Total Protein Albumin Urine Color [place] Urine Appearance Clear Urine pH 6.0 Ur Specific [place] 1.032 Urine Protein 2+ H Urine Glucose (UA) Negative Urine Ketones Trace H Urine Blood Negative Urine Nitrite Negative Urine Bilirubin Negative Urine Urobilinogen 4.0 e.u/dl Ur Leukocyte Esterase Negative Urine WBC (Auto) 1 Urine RBC (Auto) 1 Hyaline Casts 3 Urine Mucus Many RPR Titer Assessment: 09/01/17 10:09 WITHDRAWAL SX Plan: DISCHARGE PT TODAY
[2017-09-01 09:04] VITALS: BP 108/64; PULSE 92; TEMP 97.8
[2017-09-01] MEDS: NICOTINE 14 MG/24 HOURS TOPICAL PATCH TD SCH (09:27)
[2017-09-01] MEDS: POTASSIUM CHLORIDE TABS 20 MEQ TABLET.ER (FP) PO SCH (09:27)
[2017-09-01] MEDS: PRENATAL VITAMINS W/ FOLIC ACID TABLET (FP) PO SCH (09:27)
[2017-09-01] MEDS: cloNIDine HCL 0.1 MG TABLET PO SCH (09:27)
== END 2017-09-01 09:15 | disposition home or self-care (01) | DRG 897 ==
LOC: YASAS 11:42 → Y3N 14:43
PROVIDERS: ADMIT Surgery; ATTEND Surgery
PROC: HZ2ZZZZ Detoxification Services for Substance Abuse Treatment (ICD-10-PCS; principal; 2017-08-25)
DX: F11.23 Opioid dependence with withdrawal (principal); F14.20 Cocaine dependence, uncomplicated; F10.230 Alcohol dependence with withdrawal, uncomplicated; F17.210 Nicotine dependence, cigarettes, uncomplicated; F43.10 Post-traumatic stress disorder, unspecified; F25.9 Schizoaffective disorder, unspecified; J45.20 Mild intermittent asthma, uncomplicated; E87.6 Hypokalemia; Z21 Asymptomatic human immunodeficiency virus [HIV] infection status; G47.00 Insomnia, unspecified; Z91.14 Patient's other noncompliance with medication regimen; Z87.898 Personal history of other specified conditions; Z91.013 Allergy to seafood
CPT/HCPCS: 36415; 80053; 81003; 81015; 85027; 86593; 93005; 93010; J0735; Q0162

== ENCOUNTER 2017-12-26 10:15 | Inpatient (IN) | payer OTHER ==
[2017-12-26 10:48] VITALS: BMI 23.3
--- NOTE | 2017-12-26 11:36 | HP ---
COWS - Scale Resting Pulse: 1= [place] 81-100 Sweatin= Chills/Flushing Restless Observation: 0= Sits Still Pupil Size: 0= Normal to Room Light Bone or Joint Aches: 2= Severe Diffuse Aches Runny Nose/ Eye Tearin= None GI Upset > 30mins: 1= Stomach Cramp Tremor Observation: 0= None Yawning Observation: 0= None Anxiety or Irritability: 1=Feels Anxious/Irritable Goose Flesh Skin: 0=Smooth Skin COWS Score: 6 CIWA Score - CIWA Score Nausea/Vomitin-No Nausea/No Vomiting Muscle Tremors: None Anxiety: 1-Mildly Anxious Agitation: 0-Normal Activity Paroxysmal Sweats: 1-Minimal Palms Moist Orientation: 0-Oriented Tacttile Disturbances: 0-None Auditory Disturbances: 1-Very Mild Visual Disturbances: 1-Very Mild Sensitivity Headache: 0-None Present CIWA-Ar Total Score: 4 Admission ROS S - HPI Allergies/Adverse Reactions: Allergies Allergy/AdvReac Type Severity Reaction Status Date / Time Fish Containing Products Allergy Intermediate Rash Verified 12/26/17 12:25 No Known Drug Allergies Allergy Verified 12/26/17 12:39 History of Present Illness: pt here requesting detox from opiate and alcohol use , reports : heroin - 1 bundle /day ivdu in right arm ,needles from exchange program, denies sharing , + re-using , denies abscess , denies od , first age of use 14 , 2 yrs sobriety while in program ( 1999) ,no recent detox/ outpt program, latest use 3 am today . cocaine : 300$/day ivdu , latest use yesterday oxy: yesterday 2 pills percocet 01/325 mg fentanyl : 300$ /day alcohol : 3 x 6-pk beer /day , 2 pints / day + abd cramps and tremors if not drinking , has been drinking heavily x 2 mo , first age of use 17 , reports starts drinking in the daytime , denies seizures, + blackouts , denies falls tobacco : almost 1 ppd requesting nrt w/ gum wt loss : 30 lbs in 3 mo , prior wt 180 , current weight 149 lbs . denies other illicits pmhx : asthma ( since 1999 , hospitalized , [place] ) , HIV + (dx 2006 RF = IVDU) goes to [facility] , Hep C ( tx at this facility " a while back ") pshx : denies psych : bipolar d/o mesd : zolluz marinat, ambien pharmacy called - reports rx Odefsey picked up 12/25/17 ( pt states does not recall picking up meds " it must be in my house " ) , Bactrim 800 bid ( 12/16 ) Zoloft 100 mg, Ventolin, FLovent 220 , AMbien , Suboxone legal : denies finances habit through ssd i-stop 11/28/2017 11/28/2017 zolpidem tartrate 10 mg tablet 30 30 Cem Prado MD 09/25/2017 11/07/2017 zolpidem tartrate 10 mg tablet 30 30 Cem Prado MD 09/25/2017 09/29/2017 zolpidem tartrate 10 mg tablet 30 30 Cem Prado MD 09/25/2017 09/25/2017 suboxone 8 mg-2 mg sl film 30 15 Cem Prado MD 08/15/2017 09/01/2017 zolpidem tartrate 10 mg tablet 30 30 Cem Prado MD 08/15/2017 08/15/2017 suboxone 8 mg-2 mg sl film 30 15 Cem Prado MD 07/04/2017 08/02/2017 zolpidem tartrate 10 mg tablet 30 30 Cem Prado MD 07/04/2017 07/04/2017 zolpidem tartrate 10 mg tablet 30 30 Cem Prado MD 07/04/2017 07/04/2017 suboxone 8 mg-2 mg sl film 30 30 Cem Prado MD 05/07/2017 06/02/2017 zolpidem tartrate 10 mg tablet 30 30 Cem Prdao MD Patient Name: Aron Sarabia Date: 1980 Address: [address] [place] [address] Sex: Male Rx Written Rx Dispensed Drug Quantity Days Supply Prescriber Name 05/07/2017 05/07/2017 zolpidem tartrate 10 mg tablet 30 30 Cem Prado MD 05/07/2017 05/07/2017 suboxone 8 mg-2 mg sl film 60 30 Cem Prado MD 02/24/2017 03/18/2017 zolpidem tartrate 10 mg tablet 30 30 Alonso Vidal MD 02/24/2017 02/24/2017 suboxone 8 mg-2 mg sl film 90 30 Alonso West MD 01/13/2017 02/03/2017 zolpidem tartrate 10 mg tablet 30 30 Cem Prado MD 01/13/2017 01/14/2017 suboxone 8 mg-2 mg sl film 90 30 Cem Prado MD 09/23/2016 01/08/2017 zolpidem tartrate 10 mg tablet 30 30 Cem Prado MD Patient Name: Aron Sarabia Date: 1980 Address: [address] [place] [address] Sex: Male Rx Written Rx Dispensed Drug Quantity Days Supply Prescriber Name 04/10/2017 04/18/2017 suboxone 8 mg-2 mg sl film 14 7 Zion Lewis Exam Limitations: No Limitations - Ebola screening Have you traveled outside of the country in the last 21 days: No Have you had contact with anyone from an Ebola affected area: No Have you been sick,other than usual withdrawal symptoms: No Do you have a fever: No - Review of Systems Constitutional: See HPI EENT: reports: See HPI Respiratory: reports: See HPI Cardiac: reports: No Symptoms Reported GI: reports: See HPI : reports: No Symptoms Reported Musculoskeletal: reports: See HPI, Back Pain Integumentary: reports: See HPI, Other Neuro: reports: No Symptoms reported Endocrine: reports: No Symptoms Reported Psychiatric: reports: No Sypmtoms Reported, Judgement Intact, Orientated x3, other (see hpi) Other Systems: Reviewed and Negative Patient History - Patient Medical History Hx Anemia: No Hx Asthma: Yes (MDI) Hx Chronic Obstructive Pulmonary Disease (COPD): No Hx Cancer: No Hx Cardiac Disorders: No Hx Congestive Heart Failure: No Hx Hypertension: No Hx Hypercholesterolemia: No Hx Pacemaker: No HX Cerebrovascular Accident: No Hx Seizures: No Hx Dementia: No Hx Diabetes: No Hx Gastrointestinal Disorders: No Hx Liver Disease: No Hx Genitourinary Disorders: No Hx Sexually Transmitted Disorders: No Hx Renal Disease (ESRD): No Hx Thyroid Disease: No Hx Human Immunodeficiency Virus (HIV): Yes (since 2006 , vl <20; cd4 = 755 takes Odefsy but didnt bring in) Hx Hepatitis C: No (negative) Hx Depression: Yes Hx Suicide Attempt: No Hx Bipolar Disorder: Yes (hospitalized a year ago Bx [place];DENIES S/I) Hx Schizophrenia: No - Patient Surgical History Past Surgical History: No Hx Neurologic Surgery: No Hx Cataract Extraction: No Hx Cardiac Surgery: No Hx Lung Surgery: No Hx Breast Surgery: No Hx Breast Biopsy: No Hx Abdominal Surgery: No Hx Appendectomy: No Hx Cholecystectomy: No Hx Genitourinary Surgery: No Hx Section: No Hx Orthopedic Surgery: No Anesthesia Reaction: No - PPD History Date: 10/28/16 Results: 0 MM - Smoking Cessation Smoking history: Current every day smoker Have you smoked in the past 12 months: Yes Aproximately how many cigarettes per day: 10 Cigars Per Day: 0 Hx Chewing Tobacco Use: No Initiated information on smoking cessation: No - Substances Abused Heroin Route: Injection Frequency: Daily Amount used: 10 bags Age of first use: 14 Date of Last Use: 12/26/17 Cocaine Route: Injection Frequency: 1-2 times per week Amount used: $200 Age of first use: 17 Date of Last Use: 12/25/17 Alcohol-beer/vodka Route: Smoking Frequency: 1-2 times per week Amount used: 3-6 pks./2 pts. Age of first use: 17 Date of Last Use: 12/25/17 Xanax Route: Oral Frequency: 3-6 times per week Amount used: 3 mg. Age of first use: 37 Date of Last Use: 12/24/17 Fentanyl Route: Injection Frequency: Daily Amount used: $40 Age of first use: 37 Date of Last Use: 12/25/17 Family Disease History - Family Disease History Family Disease History: Other: Father (living,etoh), Mother (, overdose) , Brother (two - living - depression), Sister (three) Admission Physical Exam BHS - Vital Signs Vital Signs: Vital Signs - 24 hr 12/26/17 10:44 Temperature 99.8 F H Pulse Rate 81 Respiratory 18 Rate Blood Pressure 114/65 - Physical General Appearance: Yes: Nourished, Disheveled, Mild Distress, Intoxicated HEENTM: Yes: Within Normal Limits, EOMI, Hearing grossly Normal, Normal ENT Inspection, Normocephalic, Normal Voice, MARYJANE, Pharynx Normal Respiratory: Yes: Within Normal Limits, Chest Non-Tender, Lungs Clear, Normal Breath Sounds, No Respiratory Distress, No Accessory Muscle Use Neck: Yes: Within Normal Limits, No masses,lesions,Nodules, Trachea in good position Cardiology: Yes: Within Normal Limits, Regular Rhythm, Regular Rate Abdominal: Yes: Within Normal Limits, Normal Bowel Sounds, Non Tender, Flat, Soft Genitourinary: Yes: Within Normal Limits Back: Yes: Normal Inspection Musculoskeletal: Yes: Within Normal Limits, full range of Motion, Gait Steady, Pelvis Stable Extremities: Yes: Within Normal Limits, Normal Capillary Refill, Normal Inspection, Normal Range of Motion, Non-Tender Neurological: Yes: Alert, Motor Strength 5/5, Normal Response, Other (drowsy , falls asleep frequently during interview , dozing off while talking , easily awakend by verbal stimuli) Integumentary: Yes: Normal Color, Dry, Warm, Track [place], Other (R FA Antecubital area of induaration , mild erythema - area marked with pen) - Diagnostic (1) Alcohol dependence with uncomplicated withdrawal Current Visit: No Status: Acute (2) Cocaine dependence Current Visit: No Status: Acute Qualifiers: Substance use status: uncomplicated Qualified Code(s): F14.20 - Cocaine dependence, uncomplicated (3) Nicotine dependence Current Visit: No Status: Acute Qualifiers: Nicotine product type: cigarettes Substance use status: in withdrawal Qualified Code(s): F17.213 - Nicotine dependence, cigarettes, with withdrawal (4) Opioid dependence with withdrawal Current Visit: No Status: Acute (5) Weight loss Current Visit: No Status: Acute (6) Asthma Current Visit: No Status: Chronic Qualifiers: Asthma severity: mild Asthma persistence: intermittent Asthma complication type: uncomplicated Qualified Code(s): J45.20 - Mild intermittent asthma, uncomplicated (7) HIV (human immunodeficiency virus infection) Current Visit: No Status: Chronic BHS Breath Alcohol Content Breath Alcohol Content: 0 Urine Drug Screen - Results Drug Screen Negative: No Urine Drug Screen Results: CARLA-Cocaine, OPI-Opiates, BAR-Barbiturates, OXY- Oxycodone, FEN-Fentanyl
[2017-12-26] MEDS ORDERED: ALBUTEROL SO4 8 GM HFA INHALER IH PRN (11:39)
[2017-12-26] MEDS ORDERED: MENTHOL/PHENOL 1 EACH UD MM PRN (11:52)
[2017-12-26] MEDS ORDERED: IBUPROFEN 400 MG TABLET (FP) PO PRN (11:52)
[2017-12-26] MEDS ORDERED: MAGNESIUM CITRATE 300 ML BOTTLE PO PRN (11:52)
[2017-12-26] MEDS ORDERED: P-EPHED 60MG/TRIPROLIDI 2.5MG TABLET PO PRN (11:52)
[2017-12-26] MEDS ORDERED: MAGNESIUM HYDROX 2400MG/30ML ORAL SUSPENSION 30 ML CUP PO PRN (11:52)
[2017-12-26] MEDS ORDERED: guaiFENesin/D-METHORPHAN HB 10 ML UNIT-DOSE CUPS PO PRN (11:52)
[2017-12-26] MEDS ORDERED: ALBUTEROL SO4 0.083% IH SOL 2.5 MG/3 ML VIAL.NEB. NEB PRN (11:55)
[2017-12-26] MEDS ORDERED: METHADONE HCL 10 MG TABLET PO ONE (18:00)
[2017-12-26 18:16] LABS: URINE APPEARANCE CLEAR; URINE BILIRUBIN NEGATIVE (<2.0 mg/dL); URINE GLUCOSE (UA) NEGATIVE (NEGATIVE); URINE KETONE NEGATIVE (NEGATIVE); URINE LEUK ESTERASE NEGATIVE (NEGATIVE); URINE NITRITE NEGATIVE (NEGATIVE); URINE PROTEIN NEGATIVE (NEGATIVE)
[2017-12-26] MEDS: diazePAM 5 MG TABLET PO PRN (18:17)
[2017-12-26 18:26] LABS: URINE COLOR YELLOW
[2017-12-26] MEDS ORDERED: MELATONIN 5 MG TABLETS PO PRN (22:00)
[2017-12-26] MEDS ORDERED: METHADONE HCL 10 MG TABLET (FOR DETOX USE ONLY) PO ONE (23:00)
[2017-12-26] MEDS: diazePAM 5 MG TABLET PO SCH (23:07)
[2017-12-26] MEDS: SULFAMETHOXAZOLE/TRIMETHOPRIM 800MG/160MG D.S. TABLET PO SCH (23:07)
[2017-12-26] MEDS: THIAMINE HCL 100 MG TABLET (FP) PO SCH (23:08)
[2017-12-27] MEDS ORDERED: ONDANSETRON *ODT* 4 MG TABLET SL ONE ×2 (06:45→12:45)
--- NOTE | 2017-12-27 06:48 | PN ---
[facility] Progress Note Note: Patient vomited x 2 Vital Signs Temperature 98.4 F 12/26/17 22:00 Pulse Rate 64 12/26/17 22:00 Respiratory Rate 18 12/27/17 00:30 Blood Pressure 121/85 12/26/17 22:00 O2 Sat by Pulse Oximetry (%) Action:Zofran 4mg SL ordered
[2017-12-27] MEDS: diazePAM 5 MG TABLET PO SCH ×3 (08:15→22:48)
[2017-12-27] MEDS ORDERED: METHADONE HCL 10 MG TABLET (FOR DETOX USE ONLY) PO SCH (10:00)
--- NOTE | 2017-12-27 10:36 | EKG ---
Test Reason : Blood Pressure : / mmHG Vent. Rate : 068 BPM Atrial Rate : 068 BPM P-R Int : 136 ms QRS Dur : 096 ms QT Int : 422 ms P-R-T Axes : 058 082 069 degrees QTc Int : 448 ms POOR DATA QUALITY, INTERPRETATION MAY BE ADVERSELY AFFECTED NORMAL SINUS RHYTHM INCOMPLETE RBBB Confirmed by RADHA SALMON MD ([id number]) on 12/27/2017 10:36:09 AM Referred By: Confirmed By:RADHA SALMON MD
[2017-12-27 10:52] LABS: HEMATOCRIT 37.5 % (35.4-49); HEMOGLOBIN 12.7 GM/dL (11.7-16.9); MCH 29.4 pg (25.7-33.7); MCHC 33.9 g/dl (32.0-35.9); MEAN CELL VOLUME 86.6 fl (80-96); MEAN PLT VOLUME 8.6 fl (7.5-11.1); PLATELET COUNT 192 K/MM3 (134-434); RBC 4.33 M/mm3 (4.00-5.60); RDW 13.8 % (11.9-15.9); WHITE BLOOD COUNT 5.9 K/mm3 (4.0-10.0)
[2017-12-27 10:59] LABS: ALBUMIN 2.9 g/dl (3.4-5.0); ALK PHOS 69 U/L (45-117); ANION GAP 6 MMOL/L (8-16); BILIRUBIN,TOTAL 0.4 mg/dL (0.2-1); BLOOD UREA NITROGEN 9 mg/dL (7-18); CALCIUM 8.3 mg/dL (8.5-10.1); CHLORIDE 107 mmol/L (98-107); CO2 27 mmol/L (21-32); CREATININE 0.8 mg/dL (0.55-1.3); GLUCOSE,RANDOM 83 mg/dL (74-106); POTASSIUM 3.9 mmol/L (3.5-5.1); SGOT/AST 14 U/L (15-37); SGPT/ALT 15 U/L (13-61); SODIUM 140 mmol/L (136-145); TOT PROT 6.8 g/dl (6.4-8.2)
[2017-12-27] MEDS ORDERED: TRIMETHOBENZAMIDE HCL 200MG/2ML INJ IM ONE (11:00)
--- NOTE | 2017-12-27 12:00 | PN ---
[facility] CIWA - CIWA Score Nausea/Vomitin Muscle Tremors: 2 Anxiety: 2 Agitation: 3 Paroxysmal Sweats: 3 Orientation: 0-Oriented Tacttile Disturbances: 0-None Auditory Disturbances: 0-None Visual Disturbances: 0-None Headache: 1-Very Mild CIWA-Ar Total Score: 17 BHS COWS - Scale Resting Pulse: 0= ME 80 or Below Sweatin= Chills/Flushing Restless Observation: 1= Difficult to Sit Still Pupil Size: 1= Pupils >than Normal Bone or Joint Aches: 2= Severe Diffuse Aches Runny Nose/ Eye Tearin= Constantly Teary/Runny GI Upset > 30mins: 5=Frequent Vomit/Diarrhea Tremor Observation of Outstretched Hands: 1= Tremor [place], Not Seen Yawning Observation: 1= 1-2x During Session Anxiety or Irritability: 2=Irritable/Anxious Goose Flesh Skin: 0=Smooth Skin COWS Score: 18 S Progress Note (SOAP) Subjective: nausea, vomiting, body aches, interrupted sleep Objective: 12/27/17 11:53 Vital Signs Temperature 98.0 F 12/27/17 10:17 Pulse Rate 78 12/27/17 10:17 Respiratory Rate 16 12/27/17 10:17 Blood Pressure 133/76 12/27/17 10:17 O2 Sat by Pulse Oximetry (%) Laboratory Last Values WBC 5.9 K/mm3 (4.0-10.0) 12/27/17 08:00 RBC 4.33 M/mm3 (4.00-5.60) 12/27/17 08:00 Hgb 12.7 GM/dL (11.7-16.9) 12/27/17 08:00 Hct 37.5 % (35.4-49) D 12/27/17 08:00 MCV 86.6 fl (80-96) 12/27/17 08:00 MCH 29.4 pg (25.7-33.7) 12/27/17 08:00 MCHC 33.9 g/dl (32.0-35.9) 12/27/17 08:00 RDW 13.8 % (11.9-15.9) 12/27/17 08:00 Plt Count 192 K/MM3 (134-434) D 12/27/17 08:00 MPV 8.6 fl (7.5-11.1) D 12/27/17 08:00 Sodium 140 mmol/L (136-145) 12/27/17 08:00 Potassium 3.9 mmol/L (3.5-5.1) 12/27/17 08:00 Chloride 107 mmol/L (98-107) 12/27/17 08:00 Carbon Dioxide 27 mmol/L (21-32) 12/27/17 08:00 Anion Gap 6 MMOL/L (8-16) L 12/27/17 08:00 BUN 9 mg/dL (7-18) 12/27/17 08:00 Creatinine 0.8 mg/dL (0.55-1.3) 12/27/17 08:00 Creat Clearance w eGFR > 60 (>60) 12/27/17 08:00 Random Glucose 83 mg/dL (74-106) 12/27/17 08:00 Calcium 8.3 mg/dL (8.5-10.1) L 12/27/17 08:00 Total Bilirubin 0.4 mg/dL (0.2-1) 12/27/17 08:00 AST 14 U/L (15-37) L 12/27/17 08:00 ALT 15 U/L (13-61) 12/27/17 08:00 Alkaline Phosphatase 69 U/L (45-117) 12/27/17 08:00 Total Protein 6.8 g/dl (6.4-8.2) 12/27/17 08:00 Albumin 2.9 g/dl (3.4-5.0) L 12/27/17 08:00 Urine Color Yellow 12/26/17 17:00 Urine Appearance Clear 12/26/17 17:00 Urine pH 5.0 (5.0-8.0) 12/26/17 17:00 Ur Specific [place] 1.032 (1.010-1.035) 12/26/17 17:00 Urine Protein Negative (NEGATIVE) 12/26/17 17:00 Urine Glucose (UA) Negative (NEGATIVE) 12/26/17 17:00 Urine Ketones Negative (NEGATIVE) 12/26/17 17:00 Urine Blood Negative (NEGATIVE) 12/26/17 17:00 Urine Nitrite Negative (NEGATIVE) 12/26/17 17:00 Urine Bilirubin Negative (<2.0 mg/dL) 12/26/17 17:00 Urine Urobilinogen 2.0 mg/dL (0.2-1.0) 12/26/17 17:00 Ur Leukocyte Esterase Negative (NEGATIVE) 12/26/17 17:00 LABS REVIEWED Aox3 + vomiting full ROM skin intact, + diaphoresis withdrawal sx one time dose Tigan IM fluids as tolerated continue detox continue to monitor
[2017-12-27] MEDS: PRENATAL VITAMINS W/ FOLIC ACID TABLET (FP) PO SCH (12:27)
[2017-12-27] MEDS: diazePAM 5 MG TABLET PO PRN (12:33)
[2017-12-27] MEDS: SULFAMETHOXAZOLE/TRIMETHOPRIM 800MG/160MG D.S. TABLET PO SCH ×2 (12:34→22:48)
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
[2017-12-27] MEDS: ACETAMINOPHEN 325 MG TABLET (FP) PO PRN (20:42)
[2017-12-27] MEDS: THIAMINE HCL 100 MG TABLET (FP) PO SCH (22:48)
[2017-12-27] MEDS: ZOLPIDEM TARTRATE 10 MG TABLET (PARK CARE ONLY) PO PRN (22:48)
[2017-12-27] MEDS: NICOTINE POLACRILEX 2 MG GUM BUC PRN (22:49)
[2017-12-28] MEDS: ACETAMINOPHEN 325 MG TABLET (FP) PO PRN ×2 (03:24→19:22)
[2017-12-28] MEDS: diazePAM 5 MG TABLET PO PRN ×2 (06:16→19:22)
[2017-12-28] MEDS ORDERED: ONDANSETRON *ODT* 4 MG TABLET SL ONE (09:52)
[2017-12-28] MEDS ORDERED: METHADONE HCL 5 MG TABLET (FOR DETOX USE ONLY) PO SCH (10:00)
[2017-12-28] MEDS: PRENATAL VITAMINS W/ FOLIC ACID TABLET (FP) PO SCH (10:37)
[2017-12-28] MEDS: diazePAM 5 MG TABLET PO SCH ×2 (10:37→22:26)
[2017-12-28] MEDS: SULFAMETHOXAZOLE/TRIMETHOPRIM 800MG/160MG D.S. TABLET PO SCH ×2 (10:38→22:53)
[2017-12-28] MEDS: NICOTINE POLACRILEX 2 MG GUM BUC PRN ×2 (10:38→22:27)
--- NOTE | 2017-12-28 12:50 | PN ---
[facility] CIWA - CIWA Score Nausea/Vomitin-Mild Nausea/No Vomiting Muscle Tremors: 4-Moderate,w/Arms Extend Anxiety: 3 Agitation: 4-Moderately Restless Paroxysmal Sweats: 1-Minimal Palms Moist Orientation: 0-Oriented Tacttile Disturbances: 1-Very Mild Itch/Numbness Auditory Disturbances: 0-None Visual Disturbances: 0-None Headache: 0-None Present CIWA-Ar Total Score: 14 S COWS - Scale Resting Pulse: 0= [place] 80 or Below Sweatin= Chills/Flushing Restless Observation: 1= Difficult to Sit Still Pupil Size: 0= Normal to Room Light Bone or Joint Aches: 2= Severe Diffuse Aches Runny Nose/ Eye Tearin= Nasal Congestion GI Upset > 30mins: 2= Nausea/Diarrhea Tremor Observation of Outstretched Hands: 2= Slight Tremor Visible Yawning Observation: 2= >3x During Session Anxiety or Irritability: 2=Irritable/Anxious Goose Flesh Skin: 0=Smooth Skin COWS Score: 13 S Progress Note (SOAP) Subjective: joints pain back pain muscle cramp sweat tremor gi distress Objective: 12/28/17 12:49 Vital Signs Temperature 96.8 F L 12/28/17 09:49 Pulse Rate 89 12/28/17 09:49 Respiratory Rate 18 12/28/17 09:49 Blood Pressure 123/64 12/28/17 09:49 O2 Sat by Pulse Oximetry (%) Laboratory Last Values WBC 5.9 K/mm3 (4.0-10.0) 12/27/17 08:00 RBC 4.33 M/mm3 (4.00-5.60) 12/27/17 08:00 Hgb 12.7 GM/dL (11.7-16.9) 12/27/17 08:00 Hct 37.5 % (35.4-49) D 12/27/17 08:00 MCV 86.6 fl (80-96) 12/27/17 08:00 MCH 29.4 pg (25.7-33.7) 12/27/17 08:00 MCHC 33.9 g/dl (32.0-35.9) 12/27/17 08:00 RDW 13.8 % (11.9-15.9) 12/27/17 08:00 Plt Count 192 K/MM3 (134-434) D 12/27/17 08:00 MPV 8.6 fl (7.5-11.1) D 12/27/17 08:00 Sodium 140 mmol/L (136-145) 12/27/17 08:00 Potassium 3.9 mmol/L (3.5-5.1) 12/27/17 08:00 Chloride 107 mmol/L (98-107) 12/27/17 08:00 Carbon Dioxide 27 mmol/L (21-32) 12/27/17 08:00 Anion Gap 6 MMOL/L (8-16) L 12/27/17 08:00 BUN 9 mg/dL (7-18) 12/27/17 08:00 Creatinine 0.8 mg/dL (0.55-1.3) 12/27/17 08:00 Creat Clearance w eGFR > 60 (>60) 12/27/17 08:00 Random Glucose 83 mg/dL (74-106) 12/27/17 08:00 Calcium 8.3 mg/dL (8.5-10.1) L 12/27/17 08:00 Total Bilirubin 0.4 mg/dL (0.2-1) 12/27/17 08:00 AST 14 U/L (15-37) L 12/27/17 08:00 ALT 15 U/L (13-61) 12/27/17 08:00 Alkaline Phosphatase 69 U/L (45-117) 12/27/17 08:00 Total Protein 6.8 g/dl (6.4-8.2) 12/27/17 08:00 Albumin 2.9 g/dl (3.4-5.0) L 12/27/17 08:00 Urine Color Yellow 12/26/17 17:00 Urine Appearance Clear 12/26/17 17:00 Urine pH 5.0 (5.0-8.0) 12/26/17 17:00 Ur Specific [place] 1.032 (1.010-1.035) 12/26/17 17:00 Urine Protein Negative (NEGATIVE) 12/26/17 17:00 Urine Glucose (UA) Negative (NEGATIVE) 12/26/17 17:00 Urine Ketones Negative (NEGATIVE) 12/26/17 17:00 Urine Blood Negative (NEGATIVE) 12/26/17 17:00 Urine Nitrite Negative (NEGATIVE) 12/26/17 17:00 Urine Bilirubin Negative (<2.0 mg/dL) 12/26/17 17:00 Urine Urobilinogen 2.0 mg/dL (0.2-1.0) 12/26/17 17:00 Ur Leukocyte Esterase Negative (NEGATIVE) 12/26/17 17:00 RPR Titer Nonreactive (NONREACTIVE) 12/27/17 08:00 lab nted Assessment: 12/28/17 12:50 withdrawal sx Plan: continue detox
[2017-12-28] MEDS: RANITIDINE HCL 150 MG TABLET (FP) PO SCH ×2 (13:11→22:26)
[2017-12-28] MEDS: BUDESONIDE/FORMETEROL FUMARATE 80/4.5 mcg INHALER IH SCH ×2 (14:20→22:26)
[2017-12-28] MEDS: ONDANSETRON *ODT* 4 MG TABLET SL PRN (21:53)
[2017-12-28] MEDS: ZOLPIDEM TARTRATE 10 MG TABLET (PARK CARE ONLY) PO PRN (22:26)
[2017-12-28] MEDS: THIAMINE HCL 100 MG TABLET (FP) PO SCH (22:26)
[2017-12-29] MEDS: diazePAM 5 MG TABLET PO PRN (02:14)
[2017-12-29] MEDS: ONDANSETRON *ODT* 4 MG TABLET SL PRN (04:35)
[2017-12-29] MEDS ORDERED: TRIMETHOBENZAMIDE HCL 200MG/2ML INJ IM PRN (08:23)
--- NOTE | 2017-12-29 09:50 | PN ---
[facility] Progress Note (SOAP) Subjective: upset stomach nausea/vomiting body aches Objective: 12/29/17 09:50 Vital Signs Temperature 98.8 F 12/29/17 09:06 Pulse Rate 78 12/29/17 09:06 Respiratory Rate 18 12/29/17 09:06 Blood Pressure 121/70 12/29/17 09:06 O2 Sat by Pulse Oximetry (%) aaox3 ambulating no acute distress Assessment: 12/29/17 09:50 withdrawal sx Plan: continue detox increase fluids tigan IM prn d/c in am
[2017-12-29] MEDS ORDERED: METHADONE HCL 10 MG TABLET (FOR DETOX USE ONLY) PO SCH (10:00)
[2017-12-29] MEDS: PRENATAL VITAMINS W/ FOLIC ACID TABLET (FP) PO SCH (10:23)
[2017-12-29] MEDS: SULFAMETHOXAZOLE/TRIMETHOPRIM 800MG/160MG D.S. TABLET PO SCH ×2 (10:23→22:28)
[2017-12-29] MEDS: RANITIDINE HCL 150 MG TABLET (FP) PO SCH ×2 (10:24→22:28)
[2017-12-29] MEDS: diazePAM 5 MG TABLET PO SCH (10:25)
[2017-12-29] MEDS: BUDESONIDE/FORMETEROL FUMARATE 80/4.5 mcg INHALER IH SCH ×2 (10:25→22:28)
[2017-12-29] MEDS ORDERED: chlordiazePOXIDE 5 MG CAPSULE PO SCH ×3 (10:34→17:00)
[2017-12-29] MEDS: MAG HYDROX/AL HYDROX/SIMETH 30 ML UNIT-DOSE CUP PO PRN ×2 (12:02→22:47)
[2017-12-29] MEDS: ACETAMINOPHEN 325 MG TABLET (FP) PO PRN ×2 (13:24→20:16)
[2017-12-29] MEDS: NICOTINE POLACRILEX 2 MG GUM BUC PRN ×3 (14:01→22:31)
[2017-12-29] MEDS ORDERED: chlordiazePOXIDE HCL 10 MG CAPSULE PO SCH (22:00)
[2017-12-29] MEDS: THIAMINE HCL 100 MG TABLET (FP) PO SCH (22:28)
[2017-12-29] MEDS: chlordiazePOXIDE HCL 10 MG CAPSULE PO SCH (22:28)
[2017-12-30] MEDS: ZOLPIDEM TARTRATE 10 MG TABLET (PARK CARE ONLY) PO PRN ×2 (00:42→22:12)
[2017-12-30] MEDS: ACETAMINOPHEN 325 MG TABLET (FP) PO PRN (04:40)
[2017-12-30] MEDS: chlordiazePOXIDE HCL 10 MG CAPSULE PO SCH ×2 (05:07→11:14)
[2017-12-30] MEDS ORDERED: METHADONE HCL 5 MG TABLET (FOR DETOX USE ONLY) PO SCH (06:00)
[2017-12-30] MEDS ORDERED: diazePAM 5 MG TABLET PO SCH (10:00)
--- NOTE | 2017-12-30 10:28 | PN ---
[facility] Progress Note (SOAP) Subjective: feeling better a little nausea Objective: 12/30/17 10:27 Vital Signs Temperature 98.9 F 12/30/17 09:41 Pulse Rate 82 12/30/17 09:41 Respiratory Rate 18 12/30/17 09:41 Blood Pressure 119/58 L 12/30/17 09:41 O2 Sat by Pulse Oximetry (%) aaox3 ambulating no acute distress Assessment: 12/30/17 10:28 mild withdrawal sx Plan: continue detox clara brito prn d/c in am
[2017-12-30] MEDS: BUDESONIDE/FORMETEROL FUMARATE 80/4.5 mcg INHALER IH SCH ×2 (11:12→22:10)
[2017-12-30] MEDS: SULFAMETHOXAZOLE/TRIMETHOPRIM 800MG/160MG D.S. TABLET PO SCH ×2 (11:13→22:09)
[2017-12-30] MEDS: PRENATAL VITAMINS W/ FOLIC ACID TABLET (FP) PO SCH (11:13)
[2017-12-30] MEDS: RANITIDINE HCL 150 MG TABLET (FP) PO SCH ×2 (11:13→22:09)
[2017-12-30] MEDS: NICOTINE POLACRILEX 2 MG GUM BUC PRN ×2 (18:57→22:10)
[2017-12-30] MEDS: MAG HYDROX/AL HYDROX/SIMETH 30 ML UNIT-DOSE CUP PO PRN (18:57)
[2017-12-30] MEDS: THIAMINE HCL 100 MG TABLET (FP) PO SCH (22:09)
[2017-12-31] MEDS: MAG HYDROX/AL HYDROX/SIMETH 30 ML UNIT-DOSE CUP PO PRN (00:45)
[2017-12-31] MEDS: NICOTINE POLACRILEX 2 MG GUM BUC PRN ×2 (02:09→05:54)
--- NOTE | 2017-12-31 08:34 | DS ---
[facility] Detox Discharge Summary Admission Date: 12/26/17 Discharge Date: 12/31/17 - History Present History: Alcohol Dependence, Opioid Dependence - Physical Exam Results Vital Signs: Vital Signs Temperature 98.2 F 12/31/17 07:18 Pulse Rate 73 12/31/17 07:18 Respiratory Rate 18 12/31/17 07:18 Blood Pressure 115/61 12/31/17 07:18 O2 Sat by Pulse Oximetry (%) - Treatment Hospital Course: Detox Protocol Followed, Detoxed Safely, Responded well, Discharged Condition Good, Rehab Referral Accepted - Medication Discharge Medications: Ambulatory Orders Salmeterol/Fluticasone [Advair 250Mcg/50Mcg -] 1 inh PO BID 10/24/14 Albuterol Sulfate Inhaler - [Ventolin HFA Inhaler -] 2 inh PO Q4H PRN #1 canister 10/31/14 Zolpidem Tartrate [Ambien] 10 mg PO HS 10/26/16 Emtricitab/Rilpiviri/Tenof Ala [Odefsey Tablet] 1 each PO DAILY 10/31/16 - Diagnosis (1) Alcohol dependence with uncomplicated withdrawal Current Visit: Yes Status: Chronic (2) Cocaine dependence Current Visit: Yes Status: Chronic Qualifiers: Substance use status: uncomplicated Qualified Code(s): F14.20 - Cocaine dependence, uncomplicated (3) Insomnia Current Visit: Yes Status: Acute (4) Nausea & vomiting Current Visit: Yes Status: Resolved Qualifiers: Vomiting type: unspecified (5) Nicotine dependence Current Visit: Yes Status: Chronic Qualifiers: Nicotine product type: cigarettes Substance use status: uncomplicated Qualified Code(s): F17.210 - Nicotine dependence, cigarettes, uncomplicated (6) Opioid dependence with withdrawal Current Visit: Yes Status: Chronic (7) Substance induced mood disorder Current Visit: Yes Status: Acute (8) Weight loss Current Visit: Yes Status: Acute (9) HIV (human immunodeficiency virus infection) Current Visit: Yes Status: Chronic (10) Non compliance w medication regimen Current Visit: Yes Status: Chronic (11) Hypokalemia Current Visit: No Status: Acute (12) Non compliance with medical treatment Current Visit: No Status: Acute (13) Asthma Current Visit: No Status: Chronic Qualifiers: Asthma severity: mild Asthma persistence: intermittent Asthma complication type: uncomplicated Qualified Code(s): J45.20 - Mild intermittent asthma, uncomplicated (14) Bipolar disorder Current Visit: No Status: Chronic (15) Major depressive disorder, recurrent episode, moderate Current Visit: No Status: Chronic (16) Posttraumatic stress disorder Current Visit: No Status: Chronic (17) Schizoaffective disorder Current Visit: No Status: Chronic - AMA Did Patient Leave Against Medical Advice: No (referred to rehab [facility])
[2017-12-31] MEDS: PRENATAL VITAMINS W/ FOLIC ACID TABLET (FP) PO SCH (09:43)
[2017-12-31] MEDS: RANITIDINE HCL 150 MG TABLET (FP) PO SCH (09:43)
[2017-12-31] MEDS: SULFAMETHOXAZOLE/TRIMETHOPRIM 800MG/160MG D.S. TABLET PO SCH (09:43)
[2017-12-31] MEDS: ONDANSETRON *ODT* 4 MG TABLET SL PRN (09:44)
[2017-12-31] MEDS ORDERED: hydrOXYzine PAMOATE 25 MG CAPSULE (FP) PO PRN (09:46)
[2017-12-31 10:07] VITALS: BP 123/62; PULSE 92; TEMP 99
[2017-12-31] MEDS: BUDESONIDE/FORMETEROL FUMARATE 80/4.5 mcg INHALER IH SCH (10:53)
== END 2017-12-31 11:35 | disposition home or self-care (01) | DRG 897 ==
LOC: YASAS 10:15 → Y6N 14:49
PROC: HZ2ZZZZ Detoxification Services for Substance Abuse Treatment (ICD-10-PCS; principal; 2017-12-26)
DX: F10.20 Alcohol dependence, uncomplicated (principal); F14.20 Cocaine dependence, uncomplicated; F33.1 Major depressive disorder, recurrent, moderate; F11.23 Opioid dependence with withdrawal; F10.230 Alcohol dependence with withdrawal, uncomplicated; F17.210 Nicotine dependence, cigarettes, uncomplicated; F19.24 Other psychoactive substance dependence with psychoactive substance-induced mood disorder; F31.9 Bipolar disorder, unspecified; F43.10 Post-traumatic stress disorder, unspecified; F25.9 Schizoaffective disorder, unspecified; Z21 Asymptomatic human immunodeficiency virus [HIV] infection status; J45.20 Mild intermittent asthma, uncomplicated; R11.2 Nausea with vomiting, unspecified; G47.00 Insomnia, unspecified; E87.6 Hypokalemia; B18.2 Chronic viral hepatitis C; Z91.14 Patient's other noncompliance with medication regimen; Z91.19 Patient's noncompliance with other medical treatment and regimen; Z87.898 Personal history of other specified conditions; Z91.013 Allergy to seafood
CPT/HCPCS: 36415; 80053; 81003; 85027; 86593; 93005; 93010; Q0162

== ENCOUNTER 2020-05-02 10:24 | Inpatient (IN) | payer OTHER ==
[2020-05-02 12:51] VITALS: BMI 24.9
[2020-05-02] MEDS ORDERED: chlordiazePOXIDE HCL 25 MG CAPSULE PO PRN (14:06)
[2020-05-02] MEDS ORDERED: MENTHOL/PHENOL 1 EACH UD MM PRN (14:06)
[2020-05-02] MEDS ORDERED: MAGNESIUM HYDROX 2400MG/30ML ORAL SUSPENSION 30 ML CUP PO PRN (14:06)
[2020-05-02] MEDS ORDERED: MAG HYDROX/AL HYDROX/SIMETH 30 ML UNIT-DOSE CUP PO PRN (14:06)
[2020-05-02] MEDS ORDERED: ONDANSETRON *ODT* 4 MG TABLET SL PRN (14:06)
[2020-05-02] MEDS ORDERED: BISMUTH SUBSALICYLATE 262 MG/15 ML BTL PO PRN (14:06)
[2020-05-02] MEDS ORDERED: MAGNESIUM CITRATE 300 ML BOTTLE PO PRN (14:06)
[2020-05-02] MEDS ORDERED: ACETAMINOPHEN 325 MG TABLET (FP) PO PRN ×2 (14:06)
[2020-05-02] MEDS: chlordiazePOXIDE HCL 25 MG CAPSULE PO SCH ×3 (14:57→23:04)
[2020-05-02] MEDS: PRENATAL VITAMINS W/ FOLIC ACID TABLET (FP) PO SCH (14:58)
[2020-05-02] MEDS: hydrOXYzine PAMOATE 25 MG CAPSULE (FP) PO SCH ×2 (18:21→23:04)
[2020-05-02] MEDS: THIAMINE HCL 100 MG TABLET (FP) PO SCH (23:04)
[2020-05-02] MEDS: MELATONIN 5 MG TABLETS PO SCH (23:07)
[2020-05-03] MEDS: hydrOXYzine PAMOATE 25 MG CAPSULE (FP) PO SCH ×5 (05:56→22:29)
[2020-05-03] MEDS: chlordiazePOXIDE HCL 25 MG CAPSULE PO SCH ×4 (05:56→22:29)
[2020-05-03] MEDS: IBUPROFEN 400 MG TABLET (FP) PO PRN ×2 (05:59→18:33)
[2020-05-03 11:20] LABS: HEMATOCRIT 40.1 % (35.4-49); HEMOGLOBIN 13.8 GM/dL (11.7-16.9); MCH 30.3 pg (25.7-33.7); MCHC 34.3 g/dl (32.0-35.9); MEAN CELL VOLUME 88.2 fl (80-96); MEAN PLT VOLUME 9.4 fl (7.5-11.1); PLATELET COUNT 156 K/MM3 (134-434); RBC 4.55 M/mm3 (4.00-5.60); RDW 13.9 % (11.9-15.9); WHITE BLOOD COUNT 4.8 K/mm3 (4.0-10.0)
[2020-05-03 11:25] LABS: POTASSIUM 3.8 mmol/L (3.5-5.1)
[2020-05-03 11:43] LABS: ALBUMIN 3.4 g/dl (3.4-5.0); CALCIUM 8.4 mg/dL (8.5-10.1)
[2020-05-03 11:47] LABS: CREATININE 0.9 mg/dL (0.55-1.3)
[2020-05-03 11:48] LABS: BILIRUBIN,TOTAL 0.4 mg/dL (0.2-1); TOT PROT 7.7 g/dl (6.4-8.2)
[2020-05-03] MEDS: PRENATAL VITAMINS W/ FOLIC ACID TABLET (FP) PO SCH (12:09)
[2020-05-03] MEDS ORDERED: METHADONE HCL 10 MG TABLET PO SCH (12:15)
[2020-05-03] MEDS ORDERED: METHADONE 40 MG, METHADONE 30 MG PO ONE (13:00)
[2020-05-03] MEDS ORDERED: METHADONE HCL 10 MG TABLET ONE (13:40)
[2020-05-03] MEDS ORDERED: METHADONE HCL 40 MG DISPERSABLE TABLET ONE (13:40)
[2020-05-03] MEDS ORDERED: ALBUTEROL SO4 HFA INHALER IH PRN (14:11)
[2020-05-03] MEDS: SULFAMETHOXAZOLE/TRIMETHOPRIM 800MG/160MG D.S. TABLET PO SCH (14:47)
[2020-05-03] MEDS: BICTEGRAV/EMTRICIT/TENOFOV (BIKTARVY) 50-200-25 MG TABLET PO SCH (14:47)
[2020-05-03] MEDS: MELATONIN 5 MG TABLETS PO SCH (22:29)
[2020-05-03] MEDS: THIAMINE HCL 100 MG TABLET (FP) PO SCH (22:30)
[2020-05-04] MEDS ORDERED: METHADONE HCL 40 MG DISPERSABLE TABLET ONE (04:13)
[2020-05-04] MEDS ORDERED: METHADONE HCL 10 MG TABLET ONE (04:13)
[2020-05-04] MEDS: METHOCARBAMOL 500 MG TABLET PO PRN (05:44)
[2020-05-04] MEDS: METHADONE 40 MG, METHADONE 30 MG PO SCH (05:44)
[2020-05-04] MEDS: hydrOXYzine PAMOATE 25 MG CAPSULE (FP) PO SCH ×5 (05:45→22:24)
[2020-05-04] MEDS: chlordiazePOXIDE HCL 25 MG CAPSULE PO SCH ×4 (05:45→22:25)
[2020-05-04] MEDS: BICTEGRAV/EMTRICIT/TENOFOV (BIKTARVY) 50-200-25 MG TABLET PO SCH (08:45)
[2020-05-04] MEDS: PRENATAL VITAMINS W/ FOLIC ACID TABLET (FP) PO SCH (10:31)
[2020-05-04] MEDS: SULFAMETHOXAZOLE/TRIMETHOPRIM 800MG/160MG D.S. TABLET PO SCH (10:31)
[2020-05-04] MEDS: NICOTINE POLACRILEX 2 MG GUM BUC PRN ×2 (10:33→18:14)
[2020-05-04] MEDS: MELATONIN 5 MG TABLETS PO SCH (22:23)
[2020-05-04] MEDS: THIAMINE HCL 100 MG TABLET (FP) PO SCH (22:25)
[2020-05-05] MEDS ORDERED: chlordiazePOXIDE HCL 10 MG CAPSULE PO PRN
[2020-05-05] MEDS ORDERED: METHADONE HCL 40 MG DISPERSABLE TABLET ONE (06:17)
[2020-05-05] MEDS ORDERED: METHADONE HCL 10 MG TABLET ONE (06:17)
[2020-05-05] MEDS: chlordiazePOXIDE HCL 10 MG CAPSULE PO SCH ×2 (06:18→10:08)
[2020-05-05] MEDS: METHADONE 40 MG, METHADONE 30 MG PO SCH (06:18)
[2020-05-05] MEDS: hydrOXYzine PAMOATE 25 MG CAPSULE (FP) PO SCH ×2 (06:18→10:09)
[2020-05-05] MEDS: METHOCARBAMOL 500 MG TABLET PO PRN (06:19)
[2020-05-05] MEDS: NICOTINE POLACRILEX 2 MG GUM BUC PRN (06:24)
[2020-05-05] MEDS: SULFAMETHOXAZOLE/TRIMETHOPRIM 800MG/160MG D.S. TABLET PO SCH (10:08)
[2020-05-05] MEDS: BICTEGRAV/EMTRICIT/TENOFOV (BIKTARVY) 50-200-25 MG TABLET PO SCH (10:08)
[2020-05-05] MEDS: PRENATAL VITAMINS W/ FOLIC ACID TABLET (FP) PO SCH (10:09)
[2020-05-05 13:13] VITALS: BP 136/92; PULSE 92; TEMP 97.5
[2020-05-06] MEDS ORDERED: chlordiazePOXIDE HCL 10 MG CAPSULE PO SCH (05:00)
[2020-05-07] MEDS ORDERED: chlordiazePOXIDE HCL 10 MG CAPSULE PO ONE (05:00)
== END 2020-05-05 13:12 | disposition left against medical advice (07) | DRG 894 ==
LOC: YASAS 10:24 → Y6N 13:53
PROVIDERS: ADMIT Allergy & Immunology; ATTEND Allergy & Immunology
PROC: HZ2ZZZZ Detoxification Services for Substance Abuse Treatment (ICD-10-PCS; principal; 2020-05-02)
DX: F10.230 Alcohol dependence with withdrawal, uncomplicated (principal); F11.20 Opioid dependence, uncomplicated; F14.20 Cocaine dependence, uncomplicated; F17.210 Nicotine dependence, cigarettes, uncomplicated; F25.9 Schizoaffective disorder, unspecified; F31.9 Bipolar disorder, unspecified; F43.10 Post-traumatic stress disorder, unspecified; Z21 Asymptomatic human immunodeficiency virus [HIV] infection status; J45.20 Mild intermittent asthma, uncomplicated; B18.2 Chronic viral hepatitis C; R63.4 Abnormal weight loss; Z68.24 Body mass index [BMI] 24.0-24.9, adult; Z91.013 Allergy to seafood; Z91.19 Patient's noncompliance with other medical treatment and regimen; W19.XXXA Unspecified fall, initial encounter; Y93.89 Activity, other specified; Y92.238 Other place in hospital as the place of occurrence of the external cause; Y99.8 Other external cause status
CPT/HCPCS: 36415; 80053; 85027; 86780; C9803; U0003

== ENCOUNTER 2020-10-04 09:55 | Inpatient (IN) | payer OTHER ==
[2020-10-04] MEDS ORDERED: ONDANSETRON *ODT* 4 MG TABLET SL ONE (11:00)
[2020-10-04] MEDS ORDERED: ONDANSETRON *ODT* 4 MG TABLET ONE (11:00)
[2020-10-04 12:05] VITALS: BMI 23.5
[2020-10-04] MEDS ORDERED: TRIMETHOBENZAMIDE HCL 200MG/2ML INJ IM ONE ×2 (12:45→21:10)
[2020-10-04] MEDS ORDERED: ALBUTEROL SO4 HFA INHALER IH PRN (13:23)
[2020-10-04] MEDS ORDERED: MENTHOL/PHENOL 1 EACH UD MM PRN (13:24)
[2020-10-04] MEDS ORDERED: ACETAMINOPHEN 325 MG TABLET (FP) PO PRN (13:24)
[2020-10-04] MEDS ORDERED: MAGNESIUM CITRATE 300 ML BOTTLE PO PRN (13:24)
[2020-10-04] MEDS ORDERED: BISMUTH SUBSALICYLATE 524 MG/30 ML PO PRN (13:24)
[2020-10-04] MEDS ORDERED: MAG HYDROX/AL HYDROX/SIMETH 30 ML UNIT-DOSE CUP PO PRN (13:24)
[2020-10-04] MEDS ORDERED: MAGNESIUM HYDROX 2400MG/30ML ORAL SUSPENSION 30 ML CUP PO PRN (13:24)
[2020-10-04] MEDS ORDERED: cloNIDine HCL 0.1 MG TABLET PO PRN (13:24)
[2020-10-04] MEDS ORDERED: hydrOXYzine PAMOATE 25 MG CAPSULE (FP) PO SCH (14:00)
[2020-10-04] MEDS: NICOTINE 7 MG/24 HOURS TOPICAL PATCH TD SCH (14:59)
[2020-10-04] MEDS ORDERED: COVID-19 VAC,AD26(JANSSEN)/PF 0.5 ML IM ONE (15:00)
[2020-10-04] MEDS: ONDANSETRON *ODT* 4 MG TABLET SL PRN (17:35)
[2020-10-04 18:19] LABS: HEMATOCRIT 40.4 % (35.4-49); HEMOGLOBIN 13.8 GM/dL (11.7-16.9); MCH 29.7 pg (25.7-33.7); MCHC 34.1 g/dl (32.0-35.9); MEAN CELL VOLUME 87.1 fl (80-96); MEAN PLT VOLUME 9.1 fl (7.5-11.1); PLATELET COUNT 165 10^3/uL (134-434); RBC 4.64 M/mm3 (4.00-5.60); RDW 13.4 % (11.9-15.9); WHITE BLOOD COUNT 5.6 K/mm3 (4.0-10.0)
[2020-10-04] MEDS: diazePAM 5 MG TABLET PO SCH ×2 (18:24→22:52)
[2020-10-04 18:29] LABS: ALBUMIN 3.6 g/dl (3.4-5.0); CALCIUM 8.7 mg/dL (8.5-10.1)
[2020-10-04 18:33] LABS: CREATININE 0.8 mg/dL (0.55-1.3)
[2020-10-04 18:34] LABS: BILIRUBIN,TOTAL 0.5 mg/dL (0.2-1)
[2020-10-04] MEDS ORDERED: ONDANSETRON 4 MG/2 ML VIAL IM PRN (20:56)
[2020-10-04] MEDS: IBUPROFEN 400 MG TABLET (FP) PO PRN (22:51)
[2020-10-04] MEDS: METHOCARBAMOL 500 MG TABLET PO PRN (22:51)
[2020-10-04] MEDS: MELATONIN 5 MG TABLETS PO SCH (22:52)
[2020-10-04] MEDS: THIAMINE HCL 100 MG TABLET (FP) PO SCH (22:52)
[2020-10-05] MEDS: diazePAM 5 MG TABLET PO PRN (01:07)
[2020-10-05] MEDS: ONDANSETRON *ODT* 4 MG TABLET SL PRN ×2 (03:22→22:55)
[2020-10-05] MEDS: hydrOXYzine PAMOATE 25 MG CAPSULE (FP) PO PRN (06:06)
[2020-10-05] MEDS: diazePAM 5 MG TABLET PO SCH ×5 (06:06→22:53)
[2020-10-05] MEDS: BICTEGRAV/EMTRICIT/TENOFOV (BIKTARVY) 50-200-25 MG TABLET PO SCH ×2 (07:37→10:52)
[2020-10-05] MEDS: TRIMETHOBENZAMIDE HCL 200MG/2ML INJ IM PRN (09:43)
[2020-10-05] MEDS: NICOTINE 7 MG/24 HOURS TOPICAL PATCH TD SCH (09:43)
[2020-10-05] MEDS: PRENATAL VITAMINS W/ FOLIC ACID TABLET (FP) PO SCH (09:44)
[2020-10-05] MEDS: METHOCARBAMOL 500 MG TABLET PO PRN (10:52)
[2020-10-05] MEDS: ACETAMINOPHEN 325 MG TABLET (FP) PO PRN (10:53)
[2020-10-05] MEDS: IBUPROFEN 400 MG TABLET (FP) PO PRN (15:31)
[2020-10-05] MEDS ORDERED: LIDOCAINE 5% TOPICAL PATCH TP ONE (15:34)
[2020-10-05] MEDS: LIDOCAINE PATCH REMOVAL MC SCH (22:53)
[2020-10-05] MEDS: THIAMINE HCL 100 MG TABLET (FP) PO SCH (22:53)
[2020-10-05] MEDS: MELATONIN 5 MG TABLETS PO SCH (22:53)
[2020-10-06] MEDS: TRIMETHOBENZAMIDE HCL 200MG/2ML INJ IM PRN (03:32)
[2020-10-06] MEDS: IBUPROFEN 400 MG TABLET (FP) PO PRN (03:59)
[2020-10-06] MEDS: diazePAM 5 MG TABLET PO PRN ×2 (03:59→11:13)
[2020-10-06] MEDS: METHOCARBAMOL 500 MG TABLET PO PRN ×2 (03:59→11:12)
[2020-10-06] MEDS: diazePAM 5 MG TABLET PO SCH ×3 (06:33→22:41)
[2020-10-06] MEDS ORDERED: methaDONE HCL 10 MG TABLET (FOR DETOX USE ONLY) PO ONE (10:00)
[2020-10-06] MEDS: ONDANSETRON *ODT* 4 MG TABLET SL PRN (10:25)
[2020-10-06] MEDS: BICTEGRAV/EMTRICIT/TENOFOV (BIKTARVY) 50-200-25 MG TABLET PO SCH (11:11)
[2020-10-06] MEDS: NICOTINE 7 MG/24 HOURS TOPICAL PATCH TD SCH (11:12)
[2020-10-06] MEDS: PRENATAL VITAMINS W/ FOLIC ACID TABLET (FP) PO SCH (11:12)
[2020-10-06] MEDS: LIDOCAINE 5% TOPICAL PATCH TP SCH (11:12)
[2020-10-06] MEDS: MELATONIN 5 MG TABLETS PO SCH (22:40)
[2020-10-06] MEDS: THIAMINE HCL 100 MG TABLET (FP) PO SCH (22:40)
[2020-10-06] MEDS: LIDOCAINE PATCH REMOVAL MC SCH (23:08)
[2020-10-07] MEDS: ONDANSETRON *ODT* 4 MG TABLET SL PRN ×3 (04:50→22:19)
[2020-10-07] MEDS: METHOCARBAMOL 500 MG TABLET PO PRN ×2 (04:52→18:30)
[2020-10-07] MEDS: ACETAMINOPHEN 325 MG TABLET (FP) PO PRN (04:52)
[2020-10-07] MEDS: diazePAM 5 MG TABLET PO SCH ×2 (08:01→18:28)
[2020-10-07] MEDS ORDERED: methaDONE HCL 10 MG TABLET (FOR DETOX USE ONLY) ONE (09:34)
[2020-10-07] MEDS: BICTEGRAV/EMTRICIT/TENOFOV (BIKTARVY) 50-200-25 MG TABLET PO SCH (10:56)
[2020-10-07] MEDS: PRENATAL VITAMINS W/ FOLIC ACID TABLET (FP) PO SCH (10:57)
[2020-10-07] MEDS: NICOTINE 7 MG/24 HOURS TOPICAL PATCH TD SCH (10:58)
[2020-10-07] MEDS: LIDOCAINE 5% TOPICAL PATCH TP SCH (10:59)
[2020-10-07] MEDS: hydrOXYzine PAMOATE 25 MG CAPSULE (FP) PO PRN ×2 (11:50→22:17)
[2020-10-07] MEDS ORDERED: MASKS NR ONE (18:31)
[2020-10-07] MEDS: NICOTINE POLACRILEX 2 MG GUM BUC PRN (18:32)
[2020-10-07] MEDS: THIAMINE HCL 100 MG TABLET (FP) PO SCH (22:17)
[2020-10-07] MEDS: LIDOCAINE PATCH REMOVAL MC SCH (22:17)
[2020-10-07] MEDS: MELATONIN 5 MG TABLETS PO SCH (22:17)
[2020-10-08] MEDS ORDERED: diazePAM 5 MG TABLET PO ONE (06:00)
[2020-10-08] MEDS: ONDANSETRON *ODT* 4 MG TABLET SL PRN ×2 (08:55→17:50)
[2020-10-08] MEDS ORDERED: methaDONE HCL 10 MG TABLET (FOR DETOX USE ONLY) PO ONE (10:00)
[2020-10-08] MEDS: METHOCARBAMOL 500 MG TABLET PO PRN (10:42)
[2020-10-08] MEDS: PRENATAL VITAMINS W/ FOLIC ACID TABLET (FP) PO SCH (10:42)
[2020-10-08] MEDS: hydrOXYzine PAMOATE 25 MG CAPSULE (FP) PO PRN ×3 (10:42→22:40)
[2020-10-08] MEDS: NICOTINE 7 MG/24 HOURS TOPICAL PATCH TD SCH (10:42)
[2020-10-08] MEDS: BICTEGRAV/EMTRICIT/TENOFOV (BIKTARVY) 50-200-25 MG TABLET PO SCH (10:43)
[2020-10-08] MEDS: LIDOCAINE 5% TOPICAL PATCH TP SCH (10:43)
[2020-10-08] MEDS: MELATONIN 5 MG TABLETS PO SCH (22:40)
[2020-10-08] MEDS: THIAMINE HCL 100 MG TABLET (FP) PO SCH (22:40)
[2020-10-08] MEDS: LIDOCAINE PATCH REMOVAL MC SCH (22:41)
[2020-10-08] MEDS ORDERED: MELATONIN 5 MG TABLETS PO ONE (23:30)
[2020-10-09] MEDS: METHOCARBAMOL 500 MG TABLET PO PRN (06:01)
[2020-10-09] MEDS: NICOTINE POLACRILEX 2 MG GUM BUC PRN ×2 (06:03→10:37)
[2020-10-09] MEDS ORDERED: COVID-19 VAC,AD26(JANSSEN)/PF 0.5 ML IM ONE (10:00)
[2020-10-09] MEDS: BICTEGRAV/EMTRICIT/TENOFOV (BIKTARVY) 50-200-25 MG TABLET PO SCH (10:35)
[2020-10-09] MEDS: PRENATAL VITAMINS W/ FOLIC ACID TABLET (FP) PO SCH (10:36)
[2020-10-09] MEDS: NICOTINE 7 MG/24 HOURS TOPICAL PATCH TD SCH (10:36)
[2020-10-09] MEDS: LIDOCAINE 5% TOPICAL PATCH TP SCH (10:36)
[2020-10-09 12:56] VITALS: BP 126/64; PULSE 79; TEMP 96.9
== END 2020-10-09 15:40 | disposition other institution (70) | DRG 897 ==
LOC: YASAS 09:55 → Y3N 13:37
PROVIDERS: ADMIT Allergy & Immunology; ATTEND Allergy & Immunology
PROC: HZ2ZZZZ Detoxification Services for Substance Abuse Treatment (ICD-10-PCS; principal; 2020-10-04)
DX: F10.230 Alcohol dependence with withdrawal, uncomplicated (principal); F14.20 Cocaine dependence, uncomplicated; F11.23 Opioid dependence with withdrawal; F15.10 Other stimulant abuse, uncomplicated; F17.210 Nicotine dependence, cigarettes, uncomplicated; Z21 Asymptomatic human immunodeficiency virus [HIV] infection status; M54.5 Low back pain
CPT/HCPCS: 36415; 80053; 85027; 86780; 93005; 93010; C9803; Q0162; U0003; U0005

== ENCOUNTER 2020-10-09 16:02 | Inpatient (IN) | payer OTHER ==
[2020-10-09] MEDS ORDERED: P-EPHED 60MG/TRIPROLIDI 2.5MG TABLET PO PRN (18:48)
[2020-10-09] MEDS ORDERED: MAG HYDROX/AL HYDROX/SIMETH 30 ML UNIT-DOSE CUP PO PRN (18:48)
[2020-10-09] MEDS ORDERED: MAGNESIUM CITRATE 300 ML BOTTLE PO PRN (18:48)
[2020-10-09] MEDS ORDERED: MAGNESIUM HYDROX 2400MG/30ML ORAL SUSPENSION 30 ML CUP PO PRN (18:48)
[2020-10-09] MEDS ORDERED: ACETAMINOPHEN 325 MG TABLET (FP) PO PRN (18:48)
[2020-10-09] MEDS ORDERED: guaiFENesin 200 MG/10 ML 10 ML UNIT-DOSE CUPS PO PRN (18:48)
[2020-10-09] MEDS ORDERED: LOPERAMIDE HCL 2 MG CAPSULE PO PRN (18:48)
[2020-10-09] MEDS ORDERED: ONDANSETRON *ODT* 4 MG TABLET SL PRN (21:37)
[2020-10-09] MEDS: hydrOXYzine PAMOATE 25 MG CAPSULE (FP) PO SCH (21:47)
[2020-10-09] MEDS: THIAMINE HCL 100 MG TABLET (FP) PO SCH (21:47)
[2020-10-09] MEDS ORDERED: MELATONIN 5 MG TABLETS PO SCH (22:00)
[2020-10-09] MEDS ORDERED: MELATONIN 5 MG TABLETS PO PRN (22:31)
[2020-10-09] MEDS: IBUPROFEN 400 MG TABLET (FP) PO PRN (22:32)
[2020-10-10] MEDS: hydrOXYzine PAMOATE 25 MG CAPSULE (FP) PO SCH ×5 (06:21→21:26)
[2020-10-10] MEDS: IBUPROFEN 400 MG TABLET (FP) PO PRN ×3 (06:21→19:28)
[2020-10-10 07:28] VITALS: TEMP 97.8
[2020-10-10] MEDS ORDERED: NICOTINE 7 MG/24 HOURS TOPICAL PATCH TD SCH (10:00)
[2020-10-10] MEDS ORDERED: PRENATAL VITAMINS W/ FOLIC ACID TABLET (FP) PO SCH (10:00)
[2020-10-10] MEDS: NICOTINE POLACRILEX 2 MG GUM BC PRN ×2 (10:49→19:30)
[2020-10-10] MEDS ORDERED: ALBUTEROL SO4 HFA INHALER IH PRN (11:17)
[2020-10-10] MEDS ORDERED: BICTEGRAV/EMTRICIT/TENOFOV (BIKTARVY) 50-200-25 MG TABLET PO SCH (11:30)
[2020-10-10] MEDS ORDERED: LIDOCAINE 5% TOPICAL PATCH TP SCH (12:15)
[2020-10-10] MEDS: METHOCARBAMOL 500 MG TABLET PO SCH ×4 (14:55→21:25)
[2020-10-10 15:03] LABS: PH,URINE 7.5 (5.0-8.0); URINE APPEARANCE CLEAR; URINE BILIRUBIN NEGATIVE (NEGATIVE); URINE COLOR YELLOW; URINE GLUCOSE (UA) NEGATIVE (NEGATIVE); URINE KETONE NEGATIVE (NEGATIVE); URINE LEUK ESTERASE NEGATIVE (NEGATIVE); URINE NITRITE NEGATIVE (NEGATIVE); URINE PROTEIN NEGATIVE (NEGATIVE); URINE UROBILINOGEN 0.2 mg/dL (0.2-1.0)
[2020-10-10] MEDS: THIAMINE HCL 100 MG TABLET (FP) PO SCH (21:26)
[2020-10-10] MEDS ORDERED: LIDOCAINE PATCH REMOVAL MC SCH (22:00)
[2020-10-11] MEDS: IBUPROFEN 400 MG TABLET (FP) PO PRN (04:20)
[2020-10-11] MEDS: hydrOXYzine PAMOATE 25 MG CAPSULE (FP) PO SCH (06:16)
[2020-10-11 07:53] VITALS: BP 110/60; PULSE 80
== END 2020-10-11 09:07 | disposition home or self-care (01) | DRG 895 ==
LOC: YASAS 16:02 → Y3W 16:03
PROVIDERS: ADMIT Allergy & Immunology; ATTEND Allergy & Immunology
PROC: HZ42ZZZ Group Counseling for Substance Abuse Treatment, Cognitive-Behavioral (ICD-10-PCS; principal; 2020-10-09)
DX: F10.20 Alcohol dependence, uncomplicated (principal); F14.20 Cocaine dependence, uncomplicated; Z21 Asymptomatic human immunodeficiency virus [HIV] infection status; B18.2 Chronic viral hepatitis C
CPT/HCPCS: 81003; Q0162

== ENCOUNTER 2021-04-05 12:09 | Inpatient (IN) | payer OTHER ==
[2021-04-05] MEDS ORDERED: MAGNESIUM CITRATE 300 ML BOTTLE PO PRN (14:10)
[2021-04-05] MEDS ORDERED: LORazepam 1 MG TABLET PO PRN (14:10)
[2021-04-05] MEDS ORDERED: MAG HYDROX/AL HYDROX/SIMETH 30 ML UNIT-DOSE CUP PO PRN (14:10)
[2021-04-05] MEDS ORDERED: MENTHOL/PHENOL 1 EACH UD MM PRN (14:10)
[2021-04-05] MEDS ORDERED: methaDONE HCL 10 MG TABLET (FOR DETOX USE ONLY) PO ONE (14:10)
[2021-04-05] MEDS ORDERED: NICOTINE 10 MG CARTRIDGE (INHALER) IH PRN (14:10)
[2021-04-05] MEDS ORDERED: MAGNESIUM HYDROX 2400MG/30ML ORAL SUSPENSION 30 ML CUP PO PRN (14:10)
[2021-04-05] MEDS ORDERED: ACETAMINOPHEN 325 MG TABLET (FP) PO PRN (14:10)
[2021-04-05] MEDS ORDERED: ALBUTEROL SO4 HFA INHALER IH PRN (14:16)
[2021-04-05 15:20] VITALS: BMI 23.3
[2021-04-05] MEDS: hydrOXYzine PAMOATE 25 MG CAPSULE (FP) PO SCH ×2 (18:03→22:49)
[2021-04-05] MEDS: LORazepam 2 MG TABLET PO SCH ×2 (18:05→22:49)
[2021-04-05] MEDS: METHOCARBAMOL 500 MG TABLET PO PRN (22:48)
[2021-04-05] MEDS: MELATONIN 5 MG TABLETS PO SCH (22:48)
[2021-04-05] MEDS: THIAMINE HCL 100 MG TABLET (FP) PO SCH (22:49)
[2021-04-05] MEDS: ONDANSETRON *ODT* 4 MG TABLET SL PRN (22:50)
[2021-04-05] MEDS: BACITRACIN 0.9 GM PACKET TP SCH (23:32)
[2021-04-06] MEDS: ONDANSETRON *ODT* 4 MG TABLET SL PRN ×2 (04:17→20:34)
[2021-04-06] MEDS: IBUPROFEN 400 MG TABLET (FP) PO PRN (05:02)
[2021-04-06] MEDS: hydrOXYzine PAMOATE 25 MG CAPSULE (FP) PO SCH ×6 (05:02→23:36)
[2021-04-06] MEDS: METHOCARBAMOL 500 MG TABLET PO PRN ×2 (05:02→11:14)
[2021-04-06] MEDS: LORazepam 2 MG TABLET PO SCH ×4 (05:03→23:36)
[2021-04-06] MEDS ORDERED: methaDONE HCL 10 MG TABLET (FOR DETOX USE ONLY) ONE (09:08)
[2021-04-06 10:02] LABS: HEMATOCRIT 39.7 % (35.4-49); MCHC 32.7 g/dl (32.0-35.9); MEAN CELL VOLUME 85.4 fl (80-96); MEAN PLT VOLUME 9.9 fl (7.5-11.1); PLATELET COUNT 163 10^3/uL (134-434); RBC 4.65 M/mm3 (4.00-5.60); RDW 13.7 % (11.9-15.9); WHITE BLOOD COUNT 2.8 K/mm3 (4.0-10.0)
[2021-04-06 10:09] LABS: ALBUMIN 3.5 g/dl (3.4-5.0)
[2021-04-06 10:10] LABS: BLOOD UREA NITROGEN 13.7 mg/dL (7-18)
[2021-04-06 10:12] LABS: CREATININE 0.9 mg/dL (0.55-1.3)
[2021-04-06 10:14] LABS: BILIRUBIN,TOTAL 0.2 mg/dL (0.2-1); TOT PROT 7.7 g/dl (6.4-8.2)
[2021-04-06] MEDS: PRENATAL VITAMINS W/ FOLIC ACID TABLET (FP) PO SCH (11:12)
[2021-04-06] MEDS: BICTEGRAV/EMTRICIT/TENOFOV (BIKTARVY) 50-200-25 MG TABLET PO SCH (11:13)
[2021-04-06] MEDS: BACITRACIN 0.9 GM PACKET TP SCH ×2 (11:16→23:35)
[2021-04-06] MEDS: TRIMETHOBENZAMIDE HCL 200MG/2ML INJ IM PRN ×2 (13:28→22:38)
[2021-04-06] MEDS: ACETAMINOPHEN 325 MG TABLET (FP) PO PRN (16:09)
[2021-04-06] MEDS: THIAMINE HCL 100 MG TABLET (FP) PO SCH (23:36)
[2021-04-06] MEDS: MELATONIN 5 MG TABLETS PO SCH (23:36)
[2021-04-07] MEDS: METHOCARBAMOL 500 MG TABLET PO PRN ×2 (00:47→23:31)
[2021-04-07] MEDS: hydrOXYzine PAMOATE 25 MG CAPSULE (FP) PO SCH ×5 (05:03→22:14)
[2021-04-07] MEDS: LORazepam 1 MG TABLET PO SCH ×4 (05:03→22:14)
[2021-04-07] MEDS: IBUPROFEN 400 MG TABLET (FP) PO PRN ×2 (05:04→13:23)
[2021-04-07] MEDS: BICTEGRAV/EMTRICIT/TENOFOV (BIKTARVY) 50-200-25 MG TABLET PO SCH (07:53)
[2021-04-07] MEDS: cloNIDine HCL 0.1 MG TABLET PO PRN ×2 (08:00→23:31)
[2021-04-07] MEDS ORDERED: methaDONE HCL 10 MG TABLET (FOR DETOX USE ONLY) PO ONE (10:00)
[2021-04-07] MEDS: PRENATAL VITAMINS W/ FOLIC ACID TABLET (FP) PO SCH (10:41)
[2021-04-07] MEDS: BACITRACIN 0.9 GM PACKET TP SCH ×2 (10:44→22:13)
[2021-04-07] MEDS: BISMUTH SUBSALICYLATE 262 MG/15 ML BTL PO PRN ×2 (10:45→17:51)
[2021-04-07] MEDS: ACETAMINOPHEN 325 MG TABLET (FP) PO PRN (17:49)
[2021-04-07] MEDS ORDERED: LIDOCAINE 5% TOPICAL PATCH TP ONE (18:42)
[2021-04-07] MEDS ORDERED: LIDOCAINE PATCH REMOVAL MC SCH (22:00)
[2021-04-07] MEDS: THIAMINE HCL 100 MG TABLET (FP) PO SCH (22:14)
[2021-04-07] MEDS: MELATONIN 5 MG TABLETS PO SCH (22:14)
[2021-04-08] MEDS ORDERED: LORazepam 0.5 MG TABLET PO PRN
[2021-04-08] MEDS: hydrOXYzine PAMOATE 25 MG CAPSULE (FP) PO SCH ×2 (05:55→10:15)
[2021-04-08] MEDS: LORazepam 0.5 MG TABLET PO SCH ×2 (05:56→10:12)
[2021-04-08] MEDS: METHOCARBAMOL 500 MG TABLET PO PRN (05:57)
[2021-04-08] MEDS: BICTEGRAV/EMTRICIT/TENOFOV (BIKTARVY) 50-200-25 MG TABLET PO SCH (07:07)
[2021-04-08 08:59] VITALS: BP 120/68; PULSE 73; TEMP 96.9
[2021-04-08] MEDS ORDERED: methaDONE HCL 10 MG TABLET (FOR DETOX USE ONLY) ONE (09:22)
[2021-04-08] MEDS: BACITRACIN 0.9 GM PACKET TP SCH (10:12)
[2021-04-08] MEDS: PRENATAL VITAMINS W/ FOLIC ACID TABLET (FP) PO SCH (10:12)
[2021-04-09] MEDS ORDERED: LORazepam 0.5 MG TABLET PO ONE (05:00)
[2021-04-09] MEDS ORDERED: methaDONE HCL 10 MG TABLET (FOR DETOX USE ONLY) PO ONE (10:00)
== END 2021-04-08 11:34 | disposition home or self-care (01) | DRG 897 ==
LOC: YASAS 12:09 → Y3N 16:50
PROVIDERS: ADMIT Allergy & Immunology; ATTEND Allergy & Immunology
PROC: HZ2ZZZZ Detoxification Services for Substance Abuse Treatment (ICD-10-PCS; principal; 2021-04-05)
DX: F11.23 Opioid dependence with withdrawal (principal); F14.20 Cocaine dependence, uncomplicated; F10.230 Alcohol dependence with withdrawal, uncomplicated; F17.210 Nicotine dependence, cigarettes, uncomplicated; F31.9 Bipolar disorder, unspecified; F43.10 Post-traumatic stress disorder, unspecified; F19.24 Other psychoactive substance dependence with psychoactive substance-induced mood disorder; Z21 Asymptomatic human immunodeficiency virus [HIV] infection status; G47.00 Insomnia, unspecified; J45.20 Mild intermittent asthma, uncomplicated; B18.2 Chronic viral hepatitis C; Z91.013 Allergy to seafood; Z91.19 Patient's noncompliance with other medical treatment and regimen
CPT/HCPCS: 36415; 80053; 85027; 86780; C9803; J0735; Q0162; U0003; U0005

== ENCOUNTER 2021-12-05 11:26 | Inpatient (IN) | payer OTHER ==
[2021-12-05 12:08] VITALS: BMI 22.7
[2021-12-05] MEDS ORDERED: MAGNESIUM HYDROX 2400MG/30ML ORAL SUSPENSION 30 ML CUP PO PRN (12:43)
[2021-12-05] MEDS ORDERED: DICYCLOMINE HCL 10 MG CAPSULE PO PRN (12:43)
[2021-12-05] MEDS ORDERED: IBUPROFEN 400 MG TABLET (FP) PO PRN (12:43)
[2021-12-05] MEDS ORDERED: BENZOCAINE/MENTHOL (CHLORASEPTIC ) LOZENGE MM PRN (12:43)
[2021-12-05] MEDS ORDERED: ACETAMINOPHEN 325 MG TABLET (FP) PO PRN ×2 (12:43)
[2021-12-05] MEDS ORDERED: ONDANSETRON *ODT* 4 MG TABLET SL PRN (12:43)
[2021-12-05] MEDS ORDERED: NALOXONE HCL (KLOXXADO) 8 MG SPRAY NS PRN (12:43)
[2021-12-05] MEDS ORDERED: MAGNESIUM CITRATE 300 ML BOTTLE PO PRN (12:43)
[2021-12-05] MEDS ORDERED: NICOTINE 10 MG CARTRIDGE (INHALER) IH PRN (12:43)
[2021-12-05] MEDS ORDERED: LOPERAMIDE HCL 2 MG CAPSULE PO PRN (12:43)
[2021-12-05] MEDS ORDERED: BISMUTH SUBSALICYLATE 262 MG/15 ML BTL PO PRN (12:43)
[2021-12-05] MEDS ORDERED: ALBUTEROL SO4 HFA INHALER IH PRN (12:46)
[2021-12-05] MEDS: chlordiazePOXIDE HCL 25 MG CAPSULE PO PRN (13:35)
[2021-12-05] MEDS: METHOCARBAMOL 500 MG TABLET PO PRN (13:35)
[2021-12-05] MEDS: PRENATAL VITAMINS W/ FOLIC ACID TABLET (FP) PO SCH (13:35)
[2021-12-05] MEDS: hydrOXYzine PAMOATE 25 MG CAPSULE (FP) PO SCH ×2 (13:35→17:50)
[2021-12-05] MEDS: chlordiazePOXIDE HCL 25 MG CAPSULE PO SCH ×2 (17:48→22:20)
[2021-12-05] MEDS ORDERED: PATIENT'S OWN MEDICATION (NON-FORMULARY) (Zolpidem Tartrate [Ambien] 10 MG Tablet) PO SCH (22:00)
[2021-12-05] MEDS: THIAMINE HCL 100 MG TABLET (FP) PO SCH (22:20)
[2021-12-05] MEDS: MELATONIN 5 MG TABLETS PO SCH (22:21)
[2021-12-05] MEDS: BUDESONIDE/FORMETEROL FUMARATE 80/4.5 mcg INHALER IH SCH (22:21)
[2021-12-05] MEDS: IBUPROFEN 600 MG TABLET (FP) PO PRN (22:23)
[2021-12-06] MEDS: hydrOXYzine PAMOATE 25 MG CAPSULE (FP) PO SCH ×6 (00:12→23:00)
[2021-12-06] MEDS: chlordiazePOXIDE HCL 25 MG CAPSULE PO SCH ×4 (05:24→23:00)
[2021-12-06] MEDS: NICOTINE POLACRILEX 4 MG GUM BUC PRN ×2 (05:29→10:46)
[2021-12-06] MEDS ORDERED: methaDONE HCL 10 MG TABLET PO SCH (06:00)
[2021-12-06] MEDS: BICTEGRAV/EMTRICIT/TENOFOV (BIKTARVY) 50-200-25 MG TABLET PO SCH (07:16)
[2021-12-06] MEDS: METHOCARBAMOL 500 MG TABLET PO PRN (10:42)
[2021-12-06] MEDS: PRENATAL VITAMINS W/ FOLIC ACID TABLET (FP) PO SCH (10:42)
[2021-12-06] MEDS: BUDESONIDE/FORMETEROL FUMARATE 80/4.5 mcg INHALER IH SCH ×2 (10:43→23:02)
[2021-12-06 12:48] LABS: HEMATOCRIT 39.7 % (35.4-49); HEMOGLOBIN 12.8 GM/dL (11.7-16.9); MCH 27.5 pg (25.7-33.7); MCHC 32.3 g/dl (32.0-35.9); MEAN CELL VOLUME 85.1 fl (80-96); PLATELET COUNT 174 10^3/uL (134-434); RBC 4.67 M/mm3 (4.00-5.60); RDW 14.7 % (11.9-15.9); WHITE BLOOD COUNT 3.7 K/mm3 (4.0-10.0)
[2021-12-06 13:03] LABS: CALCIUM 8.5 mg/dL (8.5-10.1)
[2021-12-06 13:04] LABS: BLOOD UREA NITROGEN 19.3 mg/dL (7-18)
[2021-12-06 13:07] LABS: CREATININE 0.7 mg/dL (0.55-1.3)
[2021-12-06 13:08] LABS: BILIRUBIN,TOTAL 0.2 mg/dL (0.2-1); TOT PROT 7.2 g/dl (6.4-8.2)
[2021-12-06] MEDS: THIAMINE HCL 100 MG TABLET (FP) PO SCH (23:00)
[2021-12-06] MEDS: MELATONIN 5 MG TABLETS PO SCH (23:20)
[2021-12-07] MEDS: hydrOXYzine PAMOATE 25 MG CAPSULE (FP) PO SCH ×5 (05:06→22:39)
[2021-12-07] MEDS: chlordiazePOXIDE HCL 25 MG CAPSULE PO SCH ×4 (05:07→22:42)
[2021-12-07] MEDS: BUDESONIDE/FORMETEROL FUMARATE 80/4.5 mcg INHALER IH SCH ×2 (10:33→22:42)
[2021-12-07] MEDS: BICTEGRAV/EMTRICIT/TENOFOV (BIKTARVY) 50-200-25 MG TABLET PO SCH (10:33)
[2021-12-07] MEDS: PRENATAL VITAMINS W/ FOLIC ACID TABLET (FP) PO SCH (10:33)
[2021-12-07] MEDS: NICOTINE POLACRILEX 4 MG GUM BUC PRN (10:36)
[2021-12-07] MEDS: MAG HYDROX/AL HYDROX/SIMETH 30 ML UNIT-DOSE CUP PO PRN (18:06)
[2021-12-07] MEDS: chlordiazePOXIDE HCL 25 MG CAPSULE PO PRN (18:06)
[2021-12-07] MEDS: METHOCARBAMOL 500 MG TABLET PO PRN (18:06)
[2021-12-07] MEDS: MELATONIN 5 MG TABLETS PO SCH (22:40)
[2021-12-07] MEDS: THIAMINE HCL 100 MG TABLET (FP) PO SCH (22:41)
[2021-12-08] MEDS ORDERED: chlordiazePOXIDE HCL 10 MG CAPSULE PO PRN
[2021-12-08] MEDS: hydrOXYzine PAMOATE 25 MG CAPSULE (FP) PO SCH ×5 (05:38→22:17)
[2021-12-08] MEDS: chlordiazePOXIDE HCL 10 MG CAPSULE PO SCH ×4 (05:38→22:17)
[2021-12-08] MEDS: BUDESONIDE/FORMETEROL FUMARATE 80/4.5 mcg INHALER IH SCH ×2 (10:18→22:18)
[2021-12-08] MEDS: BICTEGRAV/EMTRICIT/TENOFOV (BIKTARVY) 50-200-25 MG TABLET PO SCH (10:19)
[2021-12-08] MEDS: PRENATAL VITAMINS W/ FOLIC ACID TABLET (FP) PO SCH (10:19)
[2021-12-08] MEDS: METHOCARBAMOL 500 MG TABLET PO PRN (10:19)
[2021-12-08] MEDS: NICOTINE POLACRILEX 4 MG GUM BUC PRN (10:21)
[2021-12-08] MEDS: THIAMINE HCL 100 MG TABLET (FP) PO SCH (22:18)
[2021-12-08] MEDS: MELATONIN 5 MG TABLETS PO SCH (22:18)
[2021-12-09] MEDS: chlordiazePOXIDE HCL 10 MG CAPSULE PO SCH ×2 (05:42→18:14)
[2021-12-09] MEDS: hydrOXYzine PAMOATE 25 MG CAPSULE (FP) PO SCH ×5 (05:42→22:38)
[2021-12-09] MEDS: BUDESONIDE/FORMETEROL FUMARATE 80/4.5 mcg INHALER IH SCH ×2 (10:08→22:38)
[2021-12-09] MEDS: PRENATAL VITAMINS W/ FOLIC ACID TABLET (FP) PO SCH (10:09)
[2021-12-09] MEDS: BICTEGRAV/EMTRICIT/TENOFOV (BIKTARVY) 50-200-25 MG TABLET PO SCH (10:09)
[2021-12-09] MEDS: METHOCARBAMOL 500 MG TABLET PO PRN (10:09)
[2021-12-09] MEDS: NICOTINE POLACRILEX 4 MG GUM BUC PRN ×3 (14:37→22:38)
[2021-12-09] MEDS: MAG HYDROX/AL HYDROX/SIMETH 30 ML UNIT-DOSE CUP PO PRN ×2 (15:11→22:40)
[2021-12-09] MEDS: THIAMINE HCL 100 MG TABLET (FP) PO SCH (22:38)
[2021-12-09] MEDS: MELATONIN 5 MG TABLETS PO SCH (22:39)
[2021-12-10] MEDS ORDERED: chlordiazePOXIDE HCL 10 MG CAPSULE PO ONE (05:00)
[2021-12-10] MEDS: hydrOXYzine PAMOATE 25 MG CAPSULE (FP) PO SCH ×5 (07:20→22:30)
[2021-12-10] MEDS: BICTEGRAV/EMTRICIT/TENOFOV (BIKTARVY) 50-200-25 MG TABLET PO SCH (08:22)
[2021-12-10] MEDS: BUDESONIDE/FORMETEROL FUMARATE 80/4.5 mcg INHALER IH SCH ×2 (10:30→22:30)
[2021-12-10] MEDS: PRENATAL VITAMINS W/ FOLIC ACID TABLET (FP) PO SCH (10:30)
[2021-12-10] MEDS: MAG HYDROX/AL HYDROX/SIMETH 30 ML UNIT-DOSE CUP PO PRN (10:56)
[2021-12-10] MEDS: NICOTINE POLACRILEX 4 MG GUM BUC PRN ×2 (12:50→21:10)
[2021-12-10 13:11] VITALS: RESP 18
[2021-12-10] MEDS: IBUPROFEN 600 MG TABLET (FP) PO PRN (18:22)
[2021-12-10] MEDS ORDERED: SUVOREXANT 10 MG TABLET PO PRN (22:00)
[2021-12-10] MEDS: THIAMINE HCL 100 MG TABLET (FP) PO SCH (22:27)
[2021-12-11] MEDS ORDERED: chlordiazePOXIDE 5 MG CAPSULE PO ONE (05:00)
[2021-12-11] MEDS: hydrOXYzine PAMOATE 25 MG CAPSULE (FP) PO SCH (05:22)
[2021-12-11] MEDS: NICOTINE POLACRILEX 4 MG GUM BUC PRN (05:25)
[2021-12-11 09:15] VITALS: BP 142/74; PULSE 80; TEMP 98.1
[2021-12-11] MEDS: BICTEGRAV/EMTRICIT/TENOFOV (BIKTARVY) 50-200-25 MG TABLET PO SCH (09:25)
[2021-12-11] MEDS: PRENATAL VITAMINS W/ FOLIC ACID TABLET (FP) PO SCH (09:25)
== END 2021-12-11 09:47 | disposition home or self-care (01) | DRG 897 ==
LOC: YASAS 11:26 → Y6N 13:02
PROVIDERS: ADMIT Allergy & Immunology; ATTEND Surgery
PROC: HZ2ZZZZ Detoxification Services for Substance Abuse Treatment (ICD-10-PCS; principal; 2021-12-05)
DX: F10.230 Alcohol dependence with withdrawal, uncomplicated (principal); F11.20 Opioid dependence, uncomplicated; F14.20 Cocaine dependence, uncomplicated; F19.282 Other psychoactive substance dependence with psychoactive substance-induced sleep disorder; F19.280 Other psychoactive substance dependence with psychoactive substance-induced anxiety disorder; F15.10 Other stimulant abuse, uncomplicated; F17.210 Nicotine dependence, cigarettes, uncomplicated; F19.24 Other psychoactive substance dependence with psychoactive substance-induced mood disorder; F43.10 Post-traumatic stress disorder, unspecified; Z21 Asymptomatic human immunodeficiency virus [HIV] infection status; J45.20 Mild intermittent asthma, uncomplicated; Z62.810 Personal history of physical and sexual abuse in childhood; R63.4 Abnormal weight loss; Z68.22 Body mass index [BMI] 22.0-22.9, adult; Z86.19 Personal history of other infectious and parasitic diseases
CPT/HCPCS: 36415; 80053; 85027; 86780; 87811; C9803-CS; U0003; U0005

== ENCOUNTER 2021-12-29 14:19 | Inpatient (IN) | payer OTHER ==
[2021-12-29 15:51] VITALS: BMI 22.7
[2021-12-29] MEDS ORDERED: MAGNESIUM HYDROX 2400MG/30ML ORAL SUSPENSION 30 ML CUP PO PRN (17:04)
[2021-12-29] MEDS ORDERED: MAGNESIUM CITRATE 300 ML BOTTLE PO PRN (17:04)
[2021-12-29] MEDS ORDERED: chlordiazePOXIDE HCL 25 MG CAPSULE PO PRN (17:04)
[2021-12-29] MEDS ORDERED: IBUPROFEN 400 MG TABLET (FP) PO PRN (17:04)
[2021-12-29] MEDS ORDERED: LOPERAMIDE HCL 2 MG CAPSULE PO PRN (17:04)
[2021-12-29] MEDS ORDERED: DICYCLOMINE HCL 10 MG CAPSULE PO PRN (17:04)
[2021-12-29] MEDS ORDERED: NICOTINE 10 MG CARTRIDGE (INHALER) IH PRN (17:04)
[2021-12-29] MEDS ORDERED: METHOCARBAMOL 500 MG TABLET PO PRN (17:04)
[2021-12-29] MEDS ORDERED: BENZOCAINE/MENTHOL (CHLORASEPTIC ) LOZENGE MM PRN (17:04)
[2021-12-29] MEDS ORDERED: ACETAMINOPHEN 325 MG TABLET (FP) PO PRN (17:04)
[2021-12-29] MEDS ORDERED: NALOXONE HCL (KLOXXADO) 8 MG SPRAY NS PRN (17:04)
[2021-12-29] MEDS ORDERED: TRIMETHOBENZAMIDE HCL 200MG/2ML INJ IM ONE ×2 (17:56→18:02)
[2021-12-29] MEDS: hydrOXYzine PAMOATE 25 MG CAPSULE (FP) PO PRN (19:21)
[2021-12-29] MEDS: chlordiazePOXIDE HCL 25 MG CAPSULE PO SCH (22:32)
[2021-12-29] MEDS: THIAMINE HCL 100 MG TABLET (FP) PO SCH (22:32)
[2021-12-29] MEDS: MELATONIN 5 MG TABLETS PO SCH (22:32)
[2021-12-30] MEDS: chlordiazePOXIDE HCL 25 MG CAPSULE PO SCH ×4 (05:01→22:17)
[2021-12-30] MEDS ORDERED: ALBUTEROL SO4 HFA INHALER IH PRN (08:46)
[2021-12-30] MEDS: PRENATAL VITAMINS W/ FOLIC ACID TABLET (FP) PO SCH (10:42)
[2021-12-30] MEDS: BUDESONIDE/FORMETEROL FUMARATE 80/4.5 mcg INHALER IH SCH ×2 (10:43→22:17)
[2021-12-30] MEDS: BICTEGRAV/EMTRICIT/TENOFOV (BIKTARVY) 50-200-25 MG TABLET PO SCH (10:44)
[2021-12-30] MEDS: MAG HYDROX/AL HYDROX/SIMETH 30 ML UNIT-DOSE CUP PO PRN (10:45)
[2021-12-30] MEDS ORDERED: methaDONE HCL 10 MG TABLET (FOR DETOX USE ONLY) PO ONE (11:00)
[2021-12-30] MEDS: METHOCARBAMOL 500 MG TABLET PO PRN (11:08)
[2021-12-30] MEDS: IBUPROFEN 600 MG TABLET (FP) PO PRN (11:08)
[2021-12-30 12:25] LABS: HEMATOCRIT 41.8 % (35.4-49); HEMOGLOBIN 13.8 GM/dL (11.7-16.9); MCH 28.3 pg (25.7-33.7); MCHC 32.9 g/dl (32.0-35.9); MEAN PLT VOLUME 9.3 fl (7.5-11.1); PLATELET COUNT 219 10^3/uL (134-434); RBC 4.87 M/mm3 (4.00-5.60); RDW 15.1 % (11.9-15.9); WHITE BLOOD COUNT 4.5 K/mm3 (4.0-10.0)
[2021-12-30 12:40] LABS: ALBUMIN 3.3 g/dl (3.4-5.0); BLOOD UREA NITROGEN 13.4 mg/dL (7-18)
[2021-12-30 12:43] LABS: CREATININE 0.8 mg/dL (0.55-1.3)
[2021-12-30 12:45] LABS: BILIRUBIN,TOTAL 0.5 mg/dL (0.2-1); TOT PROT 7.5 g/dl (6.4-8.2)
[2021-12-30] MEDS: BISMUTH SUBSALICYLATE 524 MG/30 ML PO PRN (17:53)
[2021-12-30] MEDS: MELATONIN 5 MG TABLETS PO SCH (22:16)
[2021-12-30] MEDS: THIAMINE HCL 100 MG TABLET (FP) PO SCH (22:17)
[2021-12-30] MEDS: NICOTINE POLACRILEX 2 MG GUM BUC PRN (22:18)
[2021-12-31] MEDS: chlordiazePOXIDE HCL 25 MG CAPSULE PO SCH ×4 (05:15→22:17)
[2021-12-31] MEDS: methaDONE HCL 40 MG DISPERSABLE TABLET PO SCH (10:14)
[2021-12-31] MEDS: BICTEGRAV/EMTRICIT/TENOFOV (BIKTARVY) 50-200-25 MG TABLET PO SCH (10:14)
[2021-12-31] MEDS: PRENATAL VITAMINS W/ FOLIC ACID TABLET (FP) PO SCH (10:14)
[2021-12-31] MEDS: BUDESONIDE/FORMETEROL FUMARATE 80/4.5 mcg INHALER IH SCH ×2 (10:17→22:15)
[2021-12-31] MEDS: NICOTINE POLACRILEX 2 MG GUM BUC PRN ×4 (10:18→22:18)
[2021-12-31] MEDS: LIDOCAINE 5% TOPICAL PATCH TP SCH (12:48)
[2021-12-31] MEDS: IBUPROFEN 600 MG TABLET (FP) PO PRN (14:08)
[2021-12-31] MEDS: METHOCARBAMOL 500 MG TABLET PO PRN ×2 (14:09→22:16)
[2021-12-31] MEDS: LIDOCAINE PATCH REMOVAL MC SCH (22:15)
[2021-12-31] MEDS: THIAMINE HCL 100 MG TABLET (FP) PO SCH (22:17)
[2021-12-31] MEDS: MELATONIN 5 MG TABLETS PO SCH (22:17)
[2022-01-01] MEDS ORDERED: chlordiazePOXIDE HCL 10 MG CAPSULE PO PRN
[2022-01-01] MEDS: NICOTINE POLACRILEX 2 MG GUM BUC PRN ×4 (02:20→22:18)
[2022-01-01] MEDS: methaDONE HCL 40 MG DISPERSABLE TABLET PO SCH (05:14)
[2022-01-01] MEDS: chlordiazePOXIDE HCL 10 MG CAPSULE PO SCH ×4 (05:14→22:26)
[2022-01-01] MEDS: IBUPROFEN 600 MG TABLET (FP) PO PRN (07:51)
[2022-01-01] MEDS: METHOCARBAMOL 500 MG TABLET PO PRN ×2 (07:51→22:15)
[2022-01-01] MEDS: LIDOCAINE 5% TOPICAL PATCH TP SCH (10:04)
[2022-01-01] MEDS: PRENATAL VITAMINS W/ FOLIC ACID TABLET (FP) PO SCH (10:04)
[2022-01-01] MEDS: BICTEGRAV/EMTRICIT/TENOFOV (BIKTARVY) 50-200-25 MG TABLET PO SCH (10:05)
[2022-01-01] MEDS: MAG HYDROX/AL HYDROX/SIMETH 30 ML UNIT-DOSE CUP PO PRN (10:07)
[2022-01-01] MEDS: BUDESONIDE/FORMETEROL FUMARATE 80/4.5 mcg INHALER IH SCH ×2 (10:17→22:14)
[2022-01-01] MEDS: BISMUTH SUBSALICYLATE 524 MG/30 ML PO PRN (17:31)
[2022-01-01] MEDS: LIDOCAINE PATCH REMOVAL MC SCH (22:14)
[2022-01-01] MEDS: MELATONIN 5 MG TABLETS PO SCH (22:14)
[2022-01-01] MEDS: THIAMINE HCL 100 MG TABLET (FP) PO SCH (22:14)
[2022-01-01] MEDS: hydrOXYzine PAMOATE 25 MG CAPSULE (FP) PO PRN (22:17)
[2022-01-02] MEDS: IBUPROFEN 600 MG TABLET (FP) PO PRN (00:16)
[2022-01-02] MEDS: methaDONE HCL 40 MG DISPERSABLE TABLET PO SCH (05:26)
[2022-01-02] MEDS: chlordiazePOXIDE HCL 10 MG CAPSULE PO SCH ×2 (05:26→18:11)
[2022-01-02] MEDS: NICOTINE POLACRILEX 2 MG GUM BUC PRN ×4 (05:28→22:28)
[2022-01-02] MEDS: ACETAMINOPHEN 325 MG TABLET (FP) PO PRN ×2 (05:29→15:15)
[2022-01-02] MEDS: PRENATAL VITAMINS W/ FOLIC ACID TABLET (FP) PO SCH (10:19)
[2022-01-02] MEDS: LIDOCAINE 5% TOPICAL PATCH TP SCH (10:21)
[2022-01-02] MEDS: BUDESONIDE/FORMETEROL FUMARATE 80/4.5 mcg INHALER IH SCH ×2 (10:22→22:27)
[2022-01-02] MEDS: BICTEGRAV/EMTRICIT/TENOFOV (BIKTARVY) 50-200-25 MG TABLET PO SCH (10:22)
[2022-01-02] MEDS: BISMUTH SUBSALICYLATE 524 MG/30 ML PO PRN (10:23)
[2022-01-02] MEDS: MELATONIN 5 MG TABLETS PO SCH (22:27)
[2022-01-02] MEDS: THIAMINE HCL 100 MG TABLET (FP) PO SCH (22:27)
[2022-01-02] MEDS: LIDOCAINE PATCH REMOVAL MC SCH (22:27)
[2022-01-03] MEDS: ACETAMINOPHEN 325 MG TABLET (FP) PO PRN ×2 (00:15→05:17)
[2022-01-03] MEDS: METHOCARBAMOL 500 MG TABLET PO PRN (00:17)
[2022-01-03] MEDS: hydrOXYzine PAMOATE 25 MG CAPSULE (FP) PO PRN (02:34)
[2022-01-03] MEDS ORDERED: chlordiazePOXIDE HCL 10 MG CAPSULE PO ONE (05:00)
[2022-01-03] MEDS: methaDONE HCL 40 MG DISPERSABLE TABLET PO SCH (05:15)
[2022-01-03] MEDS: LIDOCAINE 5% TOPICAL PATCH TP SCH (10:42)
[2022-01-03] MEDS: BICTEGRAV/EMTRICIT/TENOFOV (BIKTARVY) 50-200-25 MG TABLET PO SCH (10:42)
[2022-01-03] MEDS: BUDESONIDE/FORMETEROL FUMARATE 80/4.5 mcg INHALER IH SCH ×2 (10:42→22:25)
[2022-01-03] MEDS: PRENATAL VITAMINS W/ FOLIC ACID TABLET (FP) PO SCH (10:42)
[2022-01-03] MEDS: NICOTINE POLACRILEX 2 MG GUM BUC PRN ×2 (10:44→22:27)
[2022-01-03] MEDS: BISMUTH SUBSALICYLATE 524 MG/30 ML PO PRN ×2 (19:25→22:26)
[2022-01-03] MEDS: MELATONIN 5 MG TABLETS PO SCH (22:25)
[2022-01-03] MEDS: THIAMINE HCL 100 MG TABLET (FP) PO SCH (22:25)
[2022-01-03] MEDS: LIDOCAINE PATCH REMOVAL MC SCH (22:37)
[2022-01-04] MEDS ORDERED: chlordiazePOXIDE HCL 10 MG CAPSULE PO ONE (05:00)
[2022-01-04] MEDS: methaDONE HCL 40 MG DISPERSABLE TABLET PO SCH (05:20)
[2022-01-04 09:07] VITALS: BP 107/54; PULSE 72; RESP 16; TEMP 98.2
[2022-01-04] MEDS: BICTEGRAV/EMTRICIT/TENOFOV (BIKTARVY) 50-200-25 MG TABLET PO SCH (10:22)
[2022-01-04] MEDS: PRENATAL VITAMINS W/ FOLIC ACID TABLET (FP) PO SCH (10:22)
[2022-01-04] MEDS: LIDOCAINE 5% TOPICAL PATCH TP SCH (10:23)
[2022-01-04] MEDS: BUDESONIDE/FORMETEROL FUMARATE 80/4.5 mcg INHALER IH SCH (10:49)
== END 2022-01-04 11:04 | disposition home or self-care (01) | DRG 897 ==
LOC: YASAS 14:19 → Y3N 17:13
PROVIDERS: ADMIT Allergy & Immunology; ATTEND Surgery
PROC: HZ2ZZZZ Detoxification Services for Substance Abuse Treatment (ICD-10-PCS; principal; 2021-12-29)
DX: F10.230 Alcohol dependence with withdrawal, uncomplicated (principal); F11.20 Opioid dependence, uncomplicated; F14.20 Cocaine dependence, uncomplicated; F17.210 Nicotine dependence, cigarettes, uncomplicated; Z21 Asymptomatic human immunodeficiency virus [HIV] infection status; J45.20 Mild intermittent asthma, uncomplicated; R63.4 Abnormal weight loss; Z68.22 Body mass index [BMI] 22.0-22.9, adult; Z86.19 Personal history of other infectious and parasitic diseases
CPT/HCPCS: 36415; 80053; 85027; 86780; 87811; C9803-CS; U0003; U0005